=== PATIENT | female | born 1965 | race Caucasian/White ===

== ENCOUNTER → 2018-05-22 15:59 | Outpatient (CLI) | payer BC, SELFPAY ==
--- NOTE | 2018-05-22 16:03 | MR_ITS ---
MR knee RT wo con HISTORY: With an injury of the right knee with medial pain when bending or extending ITS.REASON: ACUTE PAIN OF RIGHT KNEE ORDERING PHYSICIAN: Abel Cleary MD PATIENT AGE: 52 years Comparison: None TECHNIQUE: Standard multiplanar multiecho sequences are performed without contrast. FINDINGS: The cruciate ligaments appear intact. The collateral ligaments also appear intact. The patellar tendon and quadriceps tendon are unremarkable. No meniscal tear. There are mild tricompartmental osteoarthritic changes with a medium sized knee joint effusion mainly in the suprapatellar region. There is some minimal thinning of the patellar cartilage with osteoarthritic change of the patellofemoral joint. Bone marrow edema is present within the medial femoral condyle hypointense on T1 and hyperintense on T2 and may be related to an area of developing avascular necrosis. There is a small focal area of decreased T1 signal in the subcortical region of this area suspicious for an area of osteonecrosis. The medial meniscus is extruded medially with decrease in the medial joint space. IMPRESSION: 1. No evidence of internal derangement. 2. Tricompartmental osteoarthritis with knee joint effusion. 3. Mild chondromalacia patella. 4. 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
== END ==
PROVIDERS: PCP Family Medicine; Visit Provider Family Medicine
DX: M25.561 Pain in right knee (principal); S83.206A Unspecified tear of unspecified meniscus, current injury, right knee, initial encounter
CPT/HCPCS: 73721

== ENCOUNTER → 2018-09-04 13:54 | Outpatient (CLI) | payer BC, SELFPAY ==
--- NOTE | 2018-09-04 13:57 | XR_ITS ---
XR knee RT 4V HISTORY: Knee pain ITS.REASON: 4 views weightbearing ORDERING PHYSICIAN: Ngozi Garcia MD PATIENT AGE: 52 years COMPARISON: None FINDINGS: No fracture or dislocation. No lytic or blastic change. Normal mineralization. There are mild osteoarthritic changes of the medial compartment and patellofemoral joint. Osteophyte is noted along the posterior patella medially with small osteophytes of the tibial spines and femoral condyles centrally. There is a small osteophyte along the central aspect of the lateral femoral condyle. Small suprapatellar effusion is suspected. IMPRESSION: Mild osteoarthritic change of all 3 compartments with small knee joint effusion
== END ==
PROVIDERS: PCP Family Medicine; Visit Provider Orthopaedic Surgery
DX: M25.561 Pain in right knee (principal)
CPT/HCPCS: 73564

== ENCOUNTER → 2020-06-10 07:45 | Outpatient (CLI) | payer BC, SELFPAY | PROVIDERS: PCP Family Medicine; Visit Provider Family Medicine | DX: R07.9 Chest pain, unspecified (principal); I34.1 Nonrheumatic mitral (valve) prolapse | CPT/HCPCS: 93306 ==

== ENCOUNTER → 2020-06-17 12:41 | Outpatient (CLI) | payer BC, SELFPAY ==
[2020-06-17 17:37] LABS: Basophils % 0.3 % (0.1-2.0); Eosinophils # 0.2 K/mm3 (0.0-0.4); Eosinophils % 2.4 % (0.1-12.0); Hematocrit 45.5 % (37.0-47.0); Hemoglobin 14.5 g/dL (12.2-16.2); Lymphocytes # 2.2 K/mm3 (0.7-4.5); Lymphocytes % 22.3 % (10-50); Mean Corpuscular Hemoglobin 28.8 pg (27.0-31.2); Mean Corpuscular Volume 90.1 fl (81-99); Mean Platelet Volume 8.9 fl (7.4-10.4); Monocytes # 0.5 K/mm3 (0.1-1.0); Monocytes % 5.5 % (1.7-9.3); Neutrophils # 6.7 K/mm3 (1.8-7.8); Neutrophils % 69.4 % (37.0-80.0); Platelet Count 256 K/mm3 (142-424); Red Blood Count 5.05 M/mm3 (4.20-5.40); Red Cell Distribution Width 14.8 % (11.5-17.5); White Blood Count 9.7 K/mm3 (4.8-10.8)
== END ==
PROVIDERS: PCP Physician Assistant; Visit Provider Physician Assistant
DX: Z20.828 Contact with and (suspected) exposure to other viral communicable diseases (principal); U07.1 COVID-19
CPT/HCPCS: 36415; 85025; U0003

== ENCOUNTER → 2020-06-20 14:27 | Outpatient (CLI) | payer BC, SELFPAY ==
[2020-06-22 14:02] LABS: Covid-19 Nasal PCR Sendout Lex NOT DETECTED
== END ==
PROVIDERS: PCP Family Medicine; Visit Provider Physician Assistant
DX: Z03.818 Encounter for observation for suspected exposure to other biological agents ruled out (principal)
CPT/HCPCS: U0004

== ENCOUNTER → 2021-05-04 19:30 | Outpatient (CLI) | payer BC, SELFPAY | PROVIDERS: Visit Provider Nurse Practitioner Family | DX: Z20.822 Contact with and (suspected) exposure to COVID-19 (principal) | CPT/HCPCS: C9803; U0003; U0005 ==

== ENCOUNTER → 2021-07-28 14:27 | Outpatient (CLI) | payer BC, SELFPAY ==
[2021-07-28 14:42] LABS: Adenovirus,PCR Not Detected (NotDetected); Bordetella Pertussis Not Detected (NotDetected); Chlamydophila Pneumoniae, PCR Not Detected (NotDetected); Coronavirus 19, PCR Not Detected (NotDetected); Coronavirus 229E Not Detected (NotDetected); Coronavirus NL63 Not Detected (NotDetected); Coronavirus OC43 Not Detected (NotDetected); Coronovirus HKU1,PCR Not Detected (NotDetected); Human Metapneumovirus Not Detected (NotDetected); Influenza A, PCR Not Detected (NotDetected); Influenza AH1, 2009 Not Detected (NotDetected); Influenza AH1, PCR Not Detected (NotDetected); Influenza AH3,PCR Not Detected (NotDetected); Influenza B, PCR Not Detected (NotDetected); Mycoplasma Pneumoniae, PCR Not Detected (NotDetected); Parainfluenza 1, PCR Not Detected (NotDetected); Parainfluenza 2, PCR Not Detected (NotDetected); Parainfluenza 3, PCR Not Detected (NotDetected); Parainfluenza 4, PCR Not Detected (NotDetected); Respiratory Syncytial Virus Not Detected (NotDetected); Rhinovirus/Enterovirus Not Detected (NotDetected)
[2021-07-28 14:48] LABS: Basophils # 0.1 K/mm3 (0-0.2); Basophils % 1.2 % (0.1-2.0); Eosinophils # 0.2 K/mm3 (0.0-0.4); Eosinophils % 2.1 % (0.1-12.0); Hematocrit 43.4 % (37.0-47.0); Hemoglobin 13.8 g/dL (12.2-16.2); Lymphocytes # 1.8 K/mm3 (0.7-4.5); Lymphocytes % 19.5 % (10-50); Mean Corpuscular HGB Conc 31.9 g/dL (31.8-35.4); Mean Corpuscular Volume 94.2 fl (81-99); Mean Platelet Volume 8.5 fl (7.4-10.4); Monocytes # 0.5 K/mm3 (0.1-1.0); Monocytes % 5.6 % (1.7-9.3); Neutrophils # 6.5 K/mm3 (1.8-7.8); Neutrophils % 71.6 % (37.0-80.0); Platelet Count 268 K/mm3 (142-424); Red Blood Count 4.61 M/mm3 (4.20-5.40); Red Cell Distribution Width 13.1 % (11.5-17.5); White Blood Count 9.1 K/mm3 (4.8-10.8)
[2021-07-28 15:30] LABS: Strep Scrn Group A (Rapid) Negative (Negative)
== END ==
PROVIDERS: PCP Family Medicine; Visit Provider Physician Assistant
DX: Z20.822 Contact with and (suspected) exposure to COVID-19 (principal); J02.9 Acute pharyngitis, unspecified
CPT/HCPCS: 36415; 85025; 87430; 87581; 87632; 87798; C9803; U0003; U0005

== ENCOUNTER → 2021-09-05 12:34 | Outpatient (CLI) | payer BC, SELFPAY ==
[2021-09-05 12:56] LABS: Microscopic, Urine URINE MICROSCOPIC (MICROSCOPIC)
[2021-09-05 13:03] LABS: Basophils % 0.4 % (0.1-2.0); Eosinophils # 0.1 K/mm3 (0.0-0.4); Eosinophils % 1.7 % (0.1-12.0); Hematocrit 44.9 % (37.0-47.0); Hemoglobin 14.5 g/dL (12.2-16.2); Lymphocytes # 1.2 K/mm3 (0.7-4.5); Lymphocytes % 14.2 % (10-50); Mean Corpuscular HGB Conc 32.3 g/dL (31.8-35.4); Mean Corpuscular Hemoglobin 30.2 pg (27.0-31.2); Mean Corpuscular Volume 93.6 fl (81-99); Mean Platelet Volume 8.7 fl (7.4-10.4); Monocytes # 0.5 K/mm3 (0.1-1.0); Monocytes % 5.8 % (1.7-9.3); Neutrophils # 6.4 K/mm3 (1.8-7.8); Neutrophils % 77.9 % (37.0-80.0); Platelet Count 276 K/mm3 (142-424); Red Cell Distribution Width 13.3 % (11.5-17.5); White Blood Count 8.2 K/mm3 (4.8-10.8)
[2021-09-05 13:22] LABS: Appearance,Urine CLOUDY (Clear); Bilirubin,Urine Negative (Negative); Blood, Urine Negative (Negative); Color,Urine YELLOW (Yellow); Glucose,Urine (UA) Negative (Negative); Ketones,Urine Negative (Negative); Leukocyte Esterase,Urine 1+ (Negative); Nitrate,Urine Negative (Negative); Protein,Urine Negative (Negative)
[2021-09-05 13:43] LABS: Amorphous Sediment,Urine 2+ /lpf; WBC,Urine Occasional #/hpf (0-3)
[2021-09-05 13:44] LABS: Bacteria,Urine 2+ /lpf
== END ==
PROVIDERS: PCP Family Medicine; Visit Provider Family Medicine
DX: U07.1 COVID-19 (principal)
CPT/HCPCS: 36415; 81001; 85025; 87086; C9803; U0003; U0005

== ENCOUNTER 2021-09-30 12:42 | Emergency (ER) | payer BC, SELFPAY ==
[2021-09-30 13:00] VITALS: BP 129/63; PULSE 66; RESP 19; TEMP 37.1; O2SAT 98; BMI 36.9
[2021-09-30 13:30] LABS: UTC Strep Screen (Rapid) Negative (Negative)
--- NOTE | 2021-09-30 13:44 | HMH.EDUTC ---
[facility] [place] Clinical Impression: Otitis media Qualifiers: Otitis media type: unspecified Laterality: right Qualified Code(s): H66.91 - Otitis media, unspecified, right ear Disposition: Home, Self-Care Condition on Discharge: Good Instructions: Middle Ear Infection, Amoxicillin and Clavulanic Acid Additional Instructions: *Monitor Temp, Over the counter Motrin or Tylenol as directed/as needed Tylenol every 4 hours and Motrin every 6 hours (as long as your family doctor has told you that you can take it) for fever or pain. and straight to ER if unable to lower temp less than 101.0 after medication given *Warm salt water gargles may help to soothe the throat *Throat Lozenges *Warm fluids like tea with honey may help to soothe the throat *Sleep elevated *Humidifier/Vaporizer Take medication as prescribed Follow up IMMEDIATELY for new or worsening symptoms or no Noticeable improvement over the next 48-72 hours. 911 for difficulty breathing or swallowing Prescriptions: Amoxicillin/Potassium Clav [Amox-Clav 875-125 mg Tablet] 1 tab PO BID #20 tab Transmission Status: Pending to [id number] Fluticasone Propionate [Flonase 50mcg nasal spray 16gm] 1 spr NS DAILY #1 each Transmission Status: Pending to [id number] Referrals: Abel Cleary MD [Primary Care Provider] - As needed Time of Disposition: 13:58 Medical Decision Making - Nik Inquiry Pt receiving controlled substance: No Nik was queried for this patient: No Vital Signs: 09/30/21 13:00 Temperature 98.8 F Temperature Source Oral Pulse Rate [Right Brachial] 66 Respiratory Rate 19 Blood Pressure [Right Arm] 129/63 Blood Pressure Mean [Right Arm] 85 Blood Pressure Source [Right Arm] Automatic Cuff Blood Pressure Position [Right Arm] Sitting 02 Sat by Pulse Oximetry 98 Oxygen Delivery Method Room Air - Lab Data Lab results reviewed: Yes: I reviewed the patient's lab results. Lab Results 09/30/21 13:17: Strep Scn Rapid Clinic Negative Orders (Tests/Meds): ORDERS Category Date Time Status Strep Screen Confirmation Stat Micro 09/30/21 13:17 Received [facility] [place] HPI - General Stated complaint: sore throat, right ear ache Time Seen by Provider: 09/30/21 13:44 Mode of Arrival: Ambulatory Source of Information: Patient Limitations: No Limitations Description of Symptoms (Recalled from Triage Doc. by RN): PATIENT C/O SORE THROAT, RIGHT EAR PAIN, SINUS PRESSURE AND HEADACHE X 2 DAYS HEENT Symptoms (Recalled from RN notes): Yes Resp Symptoms (Recalled from RN notes): No Skin Symptoms (Recalled from RN notes): No MS Symptoms (Recalled from RN notes): No Functional Status (Recalled from RN notes): WNL - History of Present Illness Provider Complaint: Patient states that she has been having sore throat, pain/pressure in her right ear and sinsus States that today it hurt when she would swallow and shoot pain through her ear so she came in to get checked out - Related Data Home Medications Medication Instructions Recorded Confirmed cholecalciferol (vitamin D3) 125 5,000 unit PO QDAY 07/28/17 06/15/21 mcg (5,000 unit) capsule duloxetine 60 mg capsule,delayed 60 mg PO QDAY 07/28/17 06/15/21 release gabapentin 300 mg capsule 300 mg PO TID 07/28/17 06/15/21 metoprolol succinate 100 mg 100 mg PO BID 07/28/17 06/15/21 tablet,extended release 24 hr montelukast 10 mg tablet 10 mg PO QHS 07/28/17 06/15/21 topiramate 100 mg capsule,extended 100 mg PO QDAY 07/28/17 06/15/21 release 24 hr secukinumab 150 mg/mL subcutaneous SQ 84 Days #6 ml 07/09/18 06/15/21 pen injector linaclotide 72 mcg capsule 72 mcg PO DAILY 09/04/18 06/15/21 dexlansoprazole 60 mg 60 mg PO DAILY 06/18/19 06/15/21 capsule,biphase delayed release quetiapine 50 mg tablet,extended 50 mg PO QPM 06/18/19 06/15/21 release 24 hr ranitidine HCl 150 mg capsule 150 mg PO DAILY 06/18/19 06/15/21 fluocinonide 0.05 % topical TOPICAL 08/04/19
[2021-09-30 14:00] VITALS: BP 129/63; PULSE 66; RESP 19; TEMP 37.1; O2SAT 98
== END 2021-09-30 14:04 | disposition home or self-care (01) ==
PROVIDERS: Emergency Provider Nurse Practitioner; PCP Family Medicine
DX: H66.91 Otitis media, unspecified, right ear (principal); M79.7 Fibromyalgia; I10 Essential (primary) hypertension
CPT/HCPCS: 87880; 99212; G0463

== ENCOUNTER → 2022-04-25 11:24 | Outpatient (CLI) | payer BC, SELFPAY ==
[2022-04-25 11:55] LABS: Basophils % 0.4 % (0.1-2.0); Eosinophils # 0.1 K/mm3 (0.0-0.4); Eosinophils % 1.7 % (0.1-12.0); Hematocrit 38.9 % (37.0-47.0); Hemoglobin 11.8 g/dL (12.2-16.2); Lymphocytes # 1.4 K/mm3 (0.7-4.5); Lymphocytes % 19.9 % (10-50); Mean Corpuscular HGB Conc 30.4 g/dL (31.8-35.4); Mean Corpuscular Hemoglobin 28.8 pg (27.0-31.2); Mean Corpuscular Volume 94.8 fl (81-99); Mean Platelet Volume 7.7 fl (7.4-10.4); Monocytes # 0.4 K/mm3 (0.1-1.0); Monocytes % 4.9 % (1.7-9.3); Neutrophils # 5.3 K/mm3 (1.8-7.8); Platelet Count 260 K/mm3 (142-424); Red Cell Distribution Width 13.4 % (11.5-17.5); White Blood Count 7.2 K/mm3 (4.8-10.8)
[2022-04-25 12:01] LABS: Strep Scrn Group A (Rapid) Negative (Negative)
== END ==
PROVIDERS: PCP Family Medicine; Visit Provider Physician Assistant
DX: Z20.822 Contact with and (suspected) exposure to COVID-19 (principal)
CPT/HCPCS: 36415; 85025; 87430; C9803; U0003; U0005

== ENCOUNTER → 2022-05-07 16:39 | Outpatient (CLI) | payer BC, SELFPAY ==
[2022-05-07 18:06] LABS: Microscopic, Urine URINE MICROSCOPIC (MICROSCOPIC)
[2022-05-07 18:15] LABS: Appearance,Urine CLEAR (Clear); Bilirubin,Urine Negative (Negative); Blood, Urine TRACE-L (Negative); Color,Urine DK YELLOW (Yellow); Glucose,Urine (UA) Negative (Negative); Ketones,Urine Negative (Negative); Leukocyte Esterase,Urine 2+ (Negative); Nitrate,Urine POSITIVE (Negative); Protein,Urine Negative (Negative); Urobilinogen,Urine 0.2 EU/dl (0.2)
[2022-05-07 18:18] LABS: Basophils # 0.1 K/mm3 (0-0.2); Basophils % 0.7 % (0.1-2.0); Eosinophils # 0.2 K/mm3 (0.0-0.4); Eosinophils % 2.8 % (0.1-12.0); Hematocrit 38.8 % (37.0-47.0); Hemoglobin 12.5 g/dL (12.2-16.2); Lymphocytes # 1.7 K/mm3 (0.7-4.5); Lymphocytes % 20.5 % (10-50); Mean Corpuscular HGB Conc 32.2 g/dL (31.8-35.4); Mean Corpuscular Hemoglobin 29.9 pg (27.0-31.2); Mean Corpuscular Volume 92.9 fl (81-99); Mean Platelet Volume 8.2 fl (7.4-10.4); Monocytes # 0.4 K/mm3 (0.1-1.0); Neutrophils # 5.7 K/mm3 (1.8-7.8); Platelet Count 236 K/mm3 (142-424); Red Blood Count 4.18 M/mm3 (4.20-5.40); Red Cell Distribution Width 13.9 % (11.5-17.5); White Blood Count 8.1 K/mm3 (4.8-10.8)
[2022-05-07 19:03] LABS: Bacteria,Urine 1+ /lpf
[2022-05-09 08:39] LABS: Antistreptolysin O Ab 182.1 IU/mL (0.0-200.0)
== END ==
PROVIDERS: PCP Family Medicine; Visit Provider Family Medicine
DX: R30.0 Dysuria (principal); N39.0 Urinary tract infection, site not specified
CPT/HCPCS: 36415; 81001; 85025; 86060; 87086

== ENCOUNTER 2022-11-15 16:30 | Emergency (ER) | payer BC, SELFPAY ==
[2022-11-15 16:41] VITALS: BP 141/86; PULSE 87; RESP 18; TEMP 36.8; O2SAT 98; BMI 46.9
--- NOTE | 2022-11-15 16:52 | EXP.UTC ---
Discharge Plan Disposition Patient Disposition: Home, Self-Care Condition: Good Prescriptions Prescriptions: New cefdinir 300 mg capsule 300 mg PO BID Qty: 20 0RF fluticasone propionate [Flonase Allergy Relief] 50 mcg/actuation spray,suspension 1 - 2 spray intranasal DAILY Qty: 16 0RF Rx Instructions: administer into each nostril daily No Action Linzess 72 mcg capsule 72 mcg PO DAILY quetiapine 50 mg tablet extended release 24 hr 50 mg PO QPM Dexilant 60 mg capsule,biphase delayed releas 60 mg PO DAILY ranitidine HCl 150 mg capsule 150 mg PO DAILY gabapentin 300 mg capsule 300 mg PO TID duloxetine 60 mg capsule,delayed release(DR/EC) 60 mg PO QDAY topiramate 100 mg capsule,extended release 24hr 100 mg PO QDAY metoprolol succinate 100 mg tablet extended release 24 hr 100 mg PO BID montelukast 10 mg tablet 10 mg PO QHS cholecalciferol (vitamin D3) 5,000 unit capsule 5,000 unit PO QDAY secukinumab 150 mg/mL pen injector SQ 84 Days Qty: 6 fluocinonide 0.05 % solution TOPICAL Label Comments: APPLY SOLUTION TOPICALLY TO AFFECTED AREA TWICE DAILY fluticasone propionate 120 SPR/BOT bottle 1 spr NS DAILY Qty: 1 0RF Rx Instructions: one spray in each nostril daily amoxicillin-pot clavulanate 1 EACH tablet 1 tab PO BID Qty: 20 0RF Referrals Follow up/Referrals: Abel Cleary MD [Primary Care Provider] - See instructions Activity Restrictions/Add. Instructions Additional Instructions/Restrictions: *Monitor Temp, Over the counter Motrin or Tylenol as directed/as needed Tylenol every 4 hours and Motrin every 6 hours (as long as your family doctor has told you that you can take it) for fever or pain. and straight to ER if unable to lower temp less than 101.0 after medication given *Warm salt water gargles may help to soothe the throat *Throat Lozenges? *Warm fluids like tea with honey may help to soothe the throat? *Sleep elevated *Humidifier/Vaporizer *If you did not take Penicillin shot or was unable to, start taking antibiotic immediately and make sure that you take it for the FULL length of time although you should start to feel better in 24-48 hours *change toothbrush and toothpaste 24-48 hours after starting to take antibiotics so you do not reinfect yourself Monitor Temp. Tylenol and/or Ibuprofen as needed. ER if fever is no less than 101 despite alternating Tylenol and Ibuprofen * Encourage fluids, water, Gatorade, powerade, pedialyte if infant/toddler/or child *Cold fluids, popsicles and ice cream may feel good on his throat Follow up IMMEDIATELY for new or worsening symptoms or no Noticeable improvement over the next 48-72 hours. 911 for difficulty breathing or swallowing Clinical Impressions Clinical Impression: Strep throat Instructions Patient Instructions: Strep Throat, DI for Strep Throat Discharge ED Provider: Lisy Spears [facility] [place] HPI General Stated complaint: sore throat,Fullness right ear,[place] Mode of Arrival: Ambulatory Source of Information: Patient Limitations: No Limitations Time Seen by Provider: 11/15/22 16:52 Description of Symptoms (Recalled from Triage Doc. by RN): pt c/o a sore throat, R ear pressure, low grade fever, and chills since yesterday. HEENT Symptoms (Recalled from RN notes): Yes Resp Symptoms (Recalled from RN notes): No Skin Symptoms (Recalled from RN notes): No MS Symptoms (Recalled from RN notes): No Functional Status (Recalled from RN notes): wnl History of Present Illness Provider Complaint: Patient states that she has been having sinus congestion and pressure but since yesterday she has been having sinus pain and pressure, sore throat, pain and pressure in right ear and low grade fever States that today her throat felt like she was swallowing razor blades so she came in to get checked Related Data Home Medications M
[2022-11-15 17:18] LABS: UTC Strep Screen (Rapid) Positive (Negative)
[2022-11-15 17:41] VITALS: BP 141/86; PULSE 87; RESP 18; TEMP 36.8
== END 2022-11-15 17:42 | disposition home or self-care (01) ==
PROVIDERS: Emergency Provider Nurse Practitioner; PCP Family Medicine
DX: J02.0 Streptococcal pharyngitis (principal); R50.9 Fever, unspecified; H92.01 Otalgia, right ear
CPT/HCPCS: 87880; 99212; 99214; G0463

== ENCOUNTER → 2022-12-06 23:32 | Outpatient (CLI) | payer BC, SELFPAY | PROVIDERS: PCP Student in an Organized Health Care Education/Training Program; Visit Provider Student in an Organized Health Care Education/Training Program | DX: R30.9 Painful micturition, unspecified (principal) | CPT/HCPCS: 87086 ==

== ENCOUNTER 2023-01-19 20:12 | Emergency (ER) | payer BC, SELFPAY ==
[2023-01-19 20:13] VITALS: BP 121/75; PULSE 83; RESP 18; TEMP 36.9; O2SAT 96; BMI 36.9
[2023-01-19 20:30] VITALS: BP 118/62; PULSE 82; O2SAT 96
[2023-01-19 20:41] LABS: Coronavirus 19, PCR Not Detected (NotDetected); Influenza A, PCR Not Detected (NotDetected); Influenza B, PCR Not Detected (NotDetected)
[2023-01-19 20:53] LABS: Strep Scrn Group A (Rapid) Positive (Negative)
[2023-01-19 21:00] VITALS: BP 122/59; PULSE 80; O2SAT 96
--- NOTE | 2023-01-19 21:13 | HMH.EDURI ---
Discharge Plan Disposition Patient Disposition: Home, Self-Care Chief Complaint: Upper Respiratory Infection Prescriptions Prescriptions: No Action Linzess 72 mcg capsule 72 mcg PO DAILY quetiapine 50 mg tablet extended release 24 hr 50 mg PO QPM gabapentin 300 mg capsule 300 mg PO TID duloxetine 60 mg capsule,delayed release(DR/EC) 60 mg PO QDAY topiramate 100 mg capsule,extended release 24hr 100 mg PO QDAY metoprolol succinate 100 mg tablet extended release 24 hr 100 mg PO BID montelukast 10 mg tablet 10 mg PO QHS cholecalciferol (vitamin D3) 5,000 unit capsule 5,000 unit PO QDAY secukinumab 150 mg/mL pen injector SQ 84 Days Qty: 6 hydroxychloroquine 200 mg tablet 200 mg PO pantoprazole 40 mg tablet,delayed release (DR/EC) 40 mg PO DAILY cyclobenzaprine 10 mg tablet 10 mg PO TID tramadol 50 mg tablet 50 mg PO Q8H PRN famotidine 40 mg tablet 40 mg PO DAILY hydroxyzine HCl 25 mg tablet 25 mg PO BID PRN phenazopyridine 99.5 mg tablet 99.5 mg PO TID PRN nitrofurantoin monohyd/m-cryst 100 mg capsule 100 mg PO Q12H 7 Days Qty: 14 0RF Rx Instructions: must administer with a meal/food triamcinolone acetonide 0.1 % cream 1 applic topical DAILY Qty: 15 0RF fluticasone propionate [Flonase Allergy Relief] 50 mcg/actuation spray,suspension 1 - 2 spray intranasal DAILY Qty: 16 0RF Rx Instructions: administer into each nostril daily Referrals Follow up/Referrals: Abel Cleary MD [Primary Care Provider] - See instructions Clinical Impressions Clinical Impression: Strep throat Instructions Patient Instructions: Strep Throat Discharge ED Provider: Dorian (ED)Asael URI/Sore Throat HPI General Chief Complaint: Upper Respiratory Infection Stated Complaint: sore throat,ear pain, cough Time Seen by Provider: 01/19/23 21:00 Mode of Arrival: Ambulatory Source of Information: Patient and Medical Record Limitations: No Limitations Description of Symptoms (Recalled from ER Triage Doc. by RN): 57F presents from home with 1 day of sore throat and flu-like symptoms. Patient reports having strep throat 1 month ago. Denies fever, chills, SOA. History of Present Illness HPI Narrative: sore throat x 1 day and no sig cough and no rash MD Complaint: sore throat Onset (ago): day(s) Duration: constant Severity: moderate Able to tolerate fluids by mouth: Yes Associated symptoms: denies other symptoms Treatments prior to arrival: acetaminophen and ibuprofen Related Data Home Medications Medication Instructions Recorded Confirmed cholecalciferol (vitamin D3) 125 5,000 unit PO QDAY 07/28/17 12/06/22 mcg (5,000 unit) capsule duloxetine 60 mg capsule,delayed 60 mg PO QDAY 07/28/17 12/06/22 release gabapentin 300 mg capsule 300 mg PO TID 07/28/17 12/06/22 metoprolol succinate 100 mg 100 mg PO BID 07/28/17 12/06/22 tablet,extended release 24 hr montelukast 10 mg tablet 10 mg PO QHS 07/28/17 12/06/22 topiramate 100 mg capsule,extended 100 mg PO QDAY 07/28/17 12/06/22 release 24 hr secukinumab 150 mg/mL subcutaneous SQ 84 days #6 mL 07/09/18 12/06/22 pen injector linaclotide 72 mcg capsule 72 mcg PO DAILY 09/04/18 12/06/22 (Linzess) quetiapine 50 mg tablet,extended 50 mg PO QPM 06/18/19 12/06/22 release 24 hr cyclobenzaprine 10 mg tablet 10 mg PO TID 12/06/22 12/06/22 famotidine 40 mg tablet 40 mg PO DAILY 12/06/22 12/06/22 hydroxychloroquine 200 mg tablet 200 mg PO 12/06/22 12/06/22 hydroxyzine HCl 25 mg tablet 25 mg PO BID PRN 12/06/22 12/06/22 pantoprazole 40 mg tablet,delayed 40 mg PO DAILY 12/06/22 12/06/22 release phenazopyridine 99.5 mg tablet 99.5 mg PO TID PRN 12/06/22 12/06/22 tramadol 50 mg tablet 50 mg PO Q8H PRN 12/06/22 12/06/22 Previous Rx's Medication Instructions Recorded fluticasone propionate 50 1 - 2 spray intranasal DAILY #16 11/15/22 mcg/
[2023-01-19 21:33] VITALS: BP 122/59; PULSE 71; RESP 18; TEMP 36.8; O2SAT 98
== END 2023-01-19 21:33 | disposition home or self-care (01) ==
PROVIDERS: Emergency Provider Emergency Medicine; PCP Family Medicine
DX: J02.0 Streptococcal pharyngitis (principal)
CPT/HCPCS: 87430; 87636; 96372; 99283; 99284; J0561

== ENCOUNTER → 2023-03-28 23:43 | Outpatient (CLI) | payer BC, SELFPAY | PROVIDERS: PCP Family Medicine; Visit Provider Student in an Organized Health Care Education/Training Program | DX: N39.0 Urinary tract infection, site not specified (principal) | CPT/HCPCS: 87086 ==

== ENCOUNTER 2023-07-13 14:42 | Emergency (ER) | payer BC, SELFPAY ==
[2023-07-13 15:10] VITALS: BP 144/67; PULSE 72; RESP 20; TEMP 36.8; O2SAT 98; BMI 36.9
--- NOTE | 2023-07-13 15:10 | ED_ITS ---
Discharge Plan Disposition Patient Disposition: Home, Self-Care Condition: Good Prescriptions Prescriptions: New promethazine-DM 6.25-15 mg/5 mL Syrup 5 ml PO Q6H PRN (Reason: Cough) Qty: 240 0RF methylprednisolone 4 mg Tablets,Dose Pack 4 mg PO DIRECTED 6 Days Qty: 21 0RF Rx Instructions: Take 1 pack as directed for 6 days amoxicillin-pot clavulanate 875-125 mg Tablet 1 tab PO Q12H Qty: 20 0RF guaifenesin [Mucinex] 600 mg tablet extended release 12hr 600 - 1,200 mg PO BIDP PRN (Reason: Congestion) Qty: 30 0RF No Action Linzess 72 mcg capsule 72 mcg PO DAILY quetiapine 50 mg tablet extended release 24 hr 50 mg PO QPM gabapentin 300 mg capsule 300 mg PO TID duloxetine 60 mg capsule,delayed release(DR/EC) 60 mg PO QDAY topiramate 100 mg capsule,extended release 24hr 100 mg PO QDAY metoprolol succinate 100 mg tablet extended release 24 hr 100 mg PO BID montelukast 10 mg tablet 10 mg PO QHS cholecalciferol (vitamin D3) 5,000 unit capsule 5,000 unit PO QDAY secukinumab 150 mg/mL pen injector SQ 84 Days Qty: 6 hydroxychloroquine 200 mg tablet 200 mg PO pantoprazole 40 mg tablet,delayed release (DR/EC) 40 mg PO DAILY cyclobenzaprine 10 mg tablet 10 mg PO TID tramadol 50 mg tablet 50 mg PO Q8H PRN famotidine 40 mg tablet 40 mg PO DAILY hydroxyzine HCl 25 mg tablet 25 mg PO BID PRN triamcinolone acetonide 0.1 % cream 1 applic topical DAILY Qty: 15 0RF amoxicillin-pot clavulanate 875-125 mg tablet 1 tab PO BID 10 Days Qty: 20 0RF benzonatate 100 mg capsule 100 mg PO BID PRN (Reason: cough) Qty: 20 0RF fluticasone propionate [Flonase Allergy Relief] 50 mcg/actuation spray,suspension 1 - 2 spray intranasal DAILY Qty: 16 0RF Rx Instructions: administer into each nostril daily Referrals Follow up/Referrals: Abel Cleary MD [Primary Care Provider] - See instructions Activity Restrictions/Add. Instructions Additional Instructions/Restrictions: Drink plenty of fluids. Take tylenol or ibuprofen for pain or fever. Take the medications as directed. Follow up with your regular doctor. GO TO THE ER FOR ANY WORSENING SYMPTOMS Clinical Impressions Clinical Impression: Sinusitis, Otitis media Instructions Patient Instructions: Sinusitis, DI for Sinusitis Discharge ED Provider: Miguel Angel Mixon [facility] General Stated complaint: right ear pain, cough congestion Time Seen by Provider: 07/13/23 15:10 History of Present Illness Provider Complaint: She states that for the past 1 week she has had sinus congestion and ear pain. Related Data Home Medications Medication Instructions Recorded Confirmed cholecalciferol (vitamin D3) 125 5,000 unit PO QDAY 07/28/17 05/24/23 mcg (5,000 unit) capsule duloxetine 60 mg capsule,delayed 60 mg PO QDAY 07/28/17 05/24/23 release gabapentin 300 mg capsule 300 mg PO TID 07/28/17 05/24/23 metoprolol succinate 100 mg 100 mg PO BID 07/28/17 05/24/23 tablet,extended release 24 hr montelukast 10 mg tablet 10 mg PO QHS 07/28/17 05/24/23 topiramate 100 mg capsule,extended 100 mg PO QDAY 07/28/17 05/24/23 release 24 hr secukinumab 150 mg/mL subcutaneous SQ 84 days #6 mL 07/09/18 05/24/23 pen injector linaclotide 72 mcg capsule 72 mcg PO DAILY 09/04/18 05/24/23 (Linzess) quetiapine 50 mg tablet,extended 50 mg PO QPM 06/18/19 05/24/23 release 24 hr cyclobenzaprine 10 mg tablet 10 mg PO TID 12/06/22 05/24/23 famotidine 40 mg tablet 40 mg PO DAILY 12/06/22 05/24/23 hydroxychloroquine 200 mg tablet 200 mg PO 12/06/22 05/24/23 hydroxyzine HCl 25 mg tablet 25 mg PO BID PRN 12/06/22 05/24/23 pantoprazole 40 mg tablet,delayed 40 mg PO DAILY 12/06/22 05/24/23 release tramadol 50 mg tablet 50 mg PO Q8H PRN 12/06/22 05/24/23 Previous Rx's Medication Instructions Recorded triamcinolone acetonide 0.1 % 1 applic topical DAILY #15 grams 12/06/22 topical cream amoxicillin 875 mg-potassium 1 tab PO BID 10 days #20 tabs 05/24/23 clavulanate 125 mg tablet benzonatate 100 mg capsule 100 mg PO BID PRN cough #20 caps 05/24/23 fluticasone propionate 50 1 - 2 spray intranasal DAILY #16 05/24/23 mcg/actuation nasal grams spray,suspension (Flonase Allergy Relief) amoxicillin 875 mg-potassium 1 tab PO Q12H #20 tabs 07/13/23 clavulanate 125 mg tablet guaifenesin 600 mg tablet, 600 - 1,200 mg PO BIDP PRN 07/13/23 extended release 12 hr (Mucinex) Congestion #30 tabs methylprednisolone 4 mg tablets in 4 mg PO DIRECTED 6 days #21 tabs 07/13/23 a dose pack promethazine-DM 6.25 mg-15 mg/5 mL 5 ml PO Q6H PRN Cough #240 mL 07/13/23 oral syrup Allergies Allergy/AdvReac Type Severity Reaction Status Date / Time hydroxychloroquine Allergy Verified 07/13/23 15:22 codeine AdvReac Mild Verified 05/24/23 09:49 [facility] Disclaimer: The information contained in this section may have been updated after the patient was seen, as this information can be updated by other users. Medical History Fibromyalgia Psoriatic arthritis Surgical History No significant past surgical history Family History Family/Other No significant family history Social History Smoking Status: Never smoker alcohol intake: never substance use type: denies use current occupational status: other Travel in the last 8 weeks: None household members: family housing: house ROS Obtained: Yes All systems reviewed & no additional complaints except as d ocumented Constitutional Constitutional: Reports poor appetite Eyes Eyes: Reports system reviewed and no additional complaints, except as documented ENT Ears, Nose, Mouth, and Throat: Reports as per HPI Cardiovascular Cardiovascular: Reports system reviewed and no additional complaints, except as documented and Denies chest pain Respiratory Respiratory: Denies shortness of breath, Denies chest congestion, Reports cough, Denies stridor and Denies wheezing Gastrointestinal Gastrointestingal: Reports system reviewed and no additional complaints, except as documented; Denies abdominal pain, diarrhea or vomiting Musculoskeletal Musculoskeletal: Reports system reviewed and no additional complaints, except as documented and Denies arthralgias Integumentary/Breasts Skin/Breast: Reports system reviewed and no additional complaints, except as documented and Denies rash Neurologic Neurologic: Denies paresthesias Allergic/Immunologic Allergic/Immunologic: Denies wheezing Physical Exam General General appearance: alert and in no apparent distress Head Head exam: atraumatic, normocephalic and normal inspection Eye Eye exam: Present normal appearance; Absent PERRL or EOMI ENT ENT exam: Present mucous membranes moist and normal external ear exam Expanded ENT Exam TM/Canal exam: Bilateral TM: erythema, bulging and effusion Nose exam: Absent sinus tenderness Nasal speculum exam: Bilateral: normal Mouth exam: Present normal external inspection and other; Absent drooling Teeth exam: Present normal inspection Throat exam: Present tonsillar erythema and tonsillomegaly Neck Neck exam: Present normal inspection, full ROM and trachea midline; Absent tenderness, meningismus or lymphadenopathy Chest Chest inspection: Present normal inspection and symmetric chest wall rise; Absent tenderness Respiratory Respiratory exam: Present normal lung sounds bilaterally; Absent respiratory distress, wheezes or stridor Cardiovascular Cardiovascular exam: Present regular rate, normal rhythm and normal heart sounds; Absent tachycardia or irregular rhythm Abdominal Exam Abdominal exam: Present soft and normal bowel sounds; Absent distention, tenderness, guarding, rebound or rigidity Extremities Exam Extremities exam: Present normal inspection and normal capillary refill; Absent tenderness, joint swelling or calf tenderness Back Exam Back exam: Present normal inspection and full ROM; Absent tenderness, CVA tenderness (R) or CVA tenderness (L) Neurological Exam Neurological exam: Present alert, oriented X3, CN II-XII intact, normal gait and reflexes normal; Absent motor sensory deficit Psychiatric Psychiatric exam: Present normal affect and normal mood Skin Skin exam: Present warm, dry, intact and normal color Lymphatic Lymphatic Findings: no adenopathy Medical Decision Making Medical Records Medical records reviewed: No I reviewed the patient's medical records. Nik Inquiry Pt receiving controlled substance: No
[2023-07-13 15:36] VITALS: BP 144/67; PULSE 72; RESP 20; TEMP 36.8; O2SAT 98
== END 2023-07-13 15:40 | disposition home or self-care (01) ==
PROVIDERS: Emergency Provider Nurse Practitioner Family; PCP Family Medicine
DX: H66.93 Otitis media, unspecified, bilateral (principal); J01.90 Acute sinusitis, unspecified; R05.9 Cough, unspecified; R09.81 Nasal congestion
CPT/HCPCS: 99212; 99214; G0463

== ENCOUNTER 2023-09-06 20:14 | Outpatient (CLI) | payer BC, SELFPAY ==
[2023-09-06 17:39] LABS: Coronavirus 19, PCR Not Detected (NotDetected); Influenza A, PCR Not Detected (NotDetected); Influenza B, PCR Not Detected (NotDetected)
== END 2023-09-06 23:59 ==
LOC: LAB.DROPOF 20:15
PROVIDERS: PCP Student in an Organized Health Care Education/Training Program; Visit Provider Student in an Organized Health Care Education/Training Program
DX: R05.9 Cough, unspecified (principal); R09.81 Nasal congestion; H92.01 Otalgia, right ear
CPT/HCPCS: 87636

== ENCOUNTER 2023-11-29 08:52 | Outpatient (CLI) | payer BC, SELFPAY ==
[2023-11-29] VITALS (8 sets, daily range): BP systolic 103–136; BP diastolic 58–94; PULSE 55–70; RESP 18; TEMP 36.7; O2SAT 96–99; BMI 40.4
--- NOTE | 2023-11-29 08:52 | CT_ITS ---
APPROVED REPORT Project Administrator: CLINICAL INDICATION Chest Pain TECHNIQUE Image Acquisition: A 128 slice MDCT scanner ([place] [employer]) was used for data acquisition. A noncontrast coronary calcium scan was performed. A CT attenuation threshold of 130 Hounsfield units (HU) was used for the detection of calcium in contiguous voxels of 1 sq mm in area to be counted as individual lesions. Bolus tracking in the ascending aorta with a threshold of 180 HU was performed. Immediately afterwards, ECG synchronized cardiac CT was then performed from the cardiac base to apex using retrospective gating with ECG tube current modulation. A total of 85 mL of Isovue 370 mg/mL contrast medium was administered at 5 mL/sec followed by a saline flush using a biphasic injection protocol. A tube voltage of 120 KVp was used. The patient received the following medications prior to the cardiac CT. 50 mg of oral metoprolol 15 mg of oral ivabradine 0.8 mg of sublingual nitroglycerin The average heart rate at the time of acquisition was 64 bpm and regular. Image Reconstruction Transaxial images were reconstructed at 0.67 mm slide thickness. Data was reviewed interactively on an advanced workstation capable of 2 and 3-dimensional displays in all conventional reconstruction formats, including multiplanar reformations, maximum intensity projections, curved multiplanar reformations, and volume rendered reconstructions. When applicable, selected routine images describing the relevant coronary anatomy and pathology were saved and sent to PACS. Complications None Technical Quality Overall image quality was suboptimal due to significant motion and step artifact. Coronary artery opacification was adequate. Total DLP (Dose-Length Product) is 1759.3 mGy-cm. The reported value represents the total of one or more individual components during the CT acquisition of this date and at this time, and as such, the same value may appear in more than one CT report depending on the interpreting/reporting physicians. COMPARISON None FINDINGS CT Coronary Calcium Scoring LMA (Left Main Artery) = 0 LAD (Left Anterior Descending) = 0 LCX (Left Coronary Circumflex) = 0 RCA (Right Coronary Artery) = 0 Total Calcium Score = 0 using the AJ-130 method. The interpretation of the calcium heart score is based on the following continuum*: 0 = no calcified plaque detected (risk of coronary artery disease is very low ??? less than 5%) 1-10 = calcium detected in extremely minimal levels (risk of coronary diseases is still low ??? less than 10%) 11-100 = mild levels of plaque detected with certainty (mild or minimal narrowing of heart arteries is likely) 101-400 = definite,at least moderate levels of plaque detected (relatively high risk of a heart attack within 3-5 years) >401-999 = extensive levels of plaque detected (high risk of heart attack, high levels of vascular disease are present, high likelihood of at least one significant coronary narrowing) *The calcium heart score quantifies the burden of coronary calcification/plaque in the coronary arteries. The calcium heart score is not able to evaluate the presence or burden of non-calcified (i.e. soft) plaque. There is no identifiable calcification in the aortic valve, mitral annulus or mitral valve, pericardium, or myocardium. Coronary CT Angiography The coronary arterial system is right dominant. Quantitative Stenosis Grading: Left Main (LM): The left main originates normally from the left sinus of Valsalva. The LM bifurcates into the left anterior descending artery and left circumflex artery. The LM is patent with no evidence of atherosclerosis. Left Anterior Descending (LAD) and Diagonal Branches: The LAD gives off 3 diagonal branch(es). The LAD and its branches are patent with no evidence of atherosclerosis. There is no evidence of LAD-myocardial bridge. Left Circumflex (LCX) and Obtuse Marginals (OM): The LCX gives off 2 Obtuse Marginal (OM) branch(es). The LCX and its branches are patent with no evidence of atherosclerosis. Right Coronary Artery (RCA): The RCA originates normally from the right sinus of Valsalva. The RCA gives off a posterior descending artery (PDA) and posterolateral (PL) branches. The RCA and its branches are patent with no evidence of atherosclerosis. Non-Coronary Cardiac Findings: Analysis of the left ventricular (LV) structure and function was performed after 3-D reconstruction of the LV from axial images, with user-corrected automatic contouring for assessment of LV volumes and user-defined reconstruction from oblique planes for measurement of 3-D cardiac structure and function. -The left ventricle systolic function is normal. -There is no left atrial appendage filling defect. Two right pulmonary veins and two left pulmonary veins drain normally into the left atrium. -No pericardial thickening or calcification. -Central and branch pulmonary arteries in the [id number] are unremarkable. -Thoracic aorta within the visualized thoracic aortic-branches in the [id number] is unremarkable. Extracardiac Structures No significant extra-cardiac findings. Note, however, that this study is focused on the cardiac findings. IMPRESSION -Suboptimal image quality due to significant motion and step artifact. Therefore, a segment of the proximal RCA is not well-visualized. -No coronary calcification with an Agatston score = 0 using the AJ-130 method. -No evidence of significant flow-limiting atherosclerosis of the coronary arteries. -CAD-RADS 0. Management recommendations per ACC/AHA guidelines*, as clinically appropriate. *Recommendations: CAD RADS 0: Reassurance. Consider non-atherosclerotic causes of chest pain. CAD RADS 1: Consider non-atherosclerotic causes of chest pain. Consider preventive therapy and risk factor modification. CAD RADS 2: Consider non-atherosclerotic causes of chest pain. Consider preventive therapy and risk factor modification, particularly for patients with nonobstructive plaque in multiple segments. CAD RADS 3: Consider further functional testing. Consider symptom-guided anti-ischemic and preventive pharmacotherapy as well as risk factor modification per published guideline statements. CAD RADS 4A: Consider further functional testing or invasive coronary angiography with revascularization per published guideline statements. Consider symptom-guided anti-ischemic and preventive pharmacotherapy as well as risk factor modification per published guideline statements. CAD RADS 4B: Invasive coronary angiography recommended with revascularization per published guideline statements. Consider symptom-guided anti-ischemic and preventive pharmacotherapy as well as risk factor modification per published guideline statements. CAD RADS 5: Consider invasive angiography and/or viability assessment with revascularization per published guideline statements. Consider symptom-guided anti-ischemic and preventive pharmacotherapy as well as risk factor modification per published guideline statements. CRITICAL RESULT None COMMUNICATION Per this written report The coronary and cardiac findings of this CCTA were reviewed, reported, and signed by Phil Domínguez MD (Object Oriented Programmer) Conclusion Electronically signed by : Emily Domínguez MD 12/02/2023 13:49:45
[2023-11-29 09:37] LABS: Blood Urea Nitrogen 14 mg/dl (7-17); Calcium 9.2 mg/dl (8.4-10.2); Carbon Dioxide 22 mmol/L (22.0-30.0); Chloride 109 mmol/L (98-107); Creatinine Clearance Estimated 137 mL/min (50-200); Estimated Glomerular Filt Rate 65 ml/min (>60); GFR (African American) 78 ML/MIN (>60); Glucose 100 mg/dl (74-100); Sodium 142 mmol/L (136-145)
[2023-11-29] MEDS: IVABRADINE HCL 7.5MG TABLET *IVABRADINE+METOPROLOL REGIMINE 15 MG PO (09:46)
[2023-11-29] MEDS: METOPROLOL TARTRATE 50MG TABLET *IVABRADINE+METOPROLOL REGIMINE 50 MG PO (09:47)
[2023-11-29 10:10] LABS: Anion Gap 14.6 mEq/L (5-15); Potassium 3.6 mmoL/L (3.5-5.1)
--- NOTE | 2023-11-29 10:39 | PC.NURSE ---
PT TO CT ROOM, 136/94 NITRO 0.8MG SL GIVEN PER PROTOCOL
--- NOTE | 2023-11-29 10:44 | PC.NURSE ---
5 MINUTES AFTER NITRO
--- NOTE | 2023-11-29 10:50 | PC.NURSE ---
TEST COMPLETE, PT NO C/O
[2023-11-29] MEDS: SODIUM CHLORIDE 0.9% 10ML SYR (RAD ONLY) 10 ML IV (10:53)
[2023-11-29] MEDS: 0.9 % SODIUM CHLORIDE 50 ML VIAL IV (10:53)
[2023-11-29] MEDS: IOPAMIDOL-370 (76%);100ML BOTTLE 85 ML IV (10:53)
--- NOTE | 2023-11-29 10:58 | PC.NURSE ---
TO POST OP FOR RECOVERY, VSS, NO C/O
--- NOTE | 2023-11-29 11:05 | CA_ITS ---
APPROVED REPORT EXAM: Comprehensive 2D, Doppler, and color-flow Echocardiogram Union Organizer: Saida Gay RDCS Ht: 5 ft 9 in Wt: 274lbs BSA: 2.36 BP: 143/64 mmHg Indications: CP M-Mode Dimensions RVDd 2.01 cm (0.9-2.6) LVDd 6.17 cm (3.5-5.7) LVDs 4.45 cm (3.5-5.7) IVSd 0.57 cm (0.6-1.1) PWd 0.90 cm (0.6-1.1) EF (Teich) 53.00% FS 27.90% EDV (Teich) 191.90 mL TAPSE 2.14 (<1.7) ESV (Teich) 90.10 mL LV Diastology E Decel Time 180 (160-240 msec) E/A Ratio 1.2 Mitral Valve MV E Max Dustin. 105.0 (40-130 cm/s) MV A Velocity 88.0 (40-130 cm/s) E/A Ratio 1.19 MV PHT 53.0 ms Left Ventricle The left ventricle is normal size. The left ventricular systolic function is low normal. There is normal left ventricular wall thickness. There is normal LV segmental wall motion. The left ventricular diastolic function is normal. LVEF is 50% Right Ventricle The right ventricle is mildly dilated. Right ventricle is mildly hypokinetic. Atria The left atrium size is normal. The right atrium size is normal. There is no Doppler evidence of interatrial shunt. Aortic Valve The aortic valve opens well. There is no aortic valvular stenosis. No aortic regurgitation. Mitral Valve The mitral valve leaflets are mildly thickened. There is mild prolapse of the posterior mitral valve leaflet. No evidence of mitral valve stenosis. Mild mitral valve regurgitation. Tricuspid Valve The tricuspid valve leaflets are thin and pliable. Trace tricuspid regurgitation. There is insufficient TR jet to estimate RVSP. Pulmonic Valve The pulmonary valve is normal in structure. Trace pulmonic regurgitation. Great Vessels The aortic root is normal in size. The ascending aorta is normal in size. IVC is normal in size and collapses >50% with inspiration. Pericardium There is no pericardial effusion. Other Information Study Quality: Fair Conclusion Low normal LV systolic function (LVEF 50%). Mildly dilated RV with mild reduction in RV function. Mild posterior MV leaflet prolapse. Mild MR. Electronically signed by : Emily Domínguez MD 12/01/2023 22:22:16
--- NOTE | 2023-11-29 11:31 | PC.NURSE ---
PT TO ECHO FOR NEXT TEST.
== END 2023-11-29 11:33 | disposition home or self-care (01) ==
PROVIDERS: PCP Family Medicine; Visit Provider Nurse Practitioner Family
DX: R07.89 Other chest pain (principal); Z86.79 Personal history of other diseases of the circulatory system; R94.31 Abnormal electrocardiogram [ECG] [EKG]
CPT/HCPCS: 75571; 75574; 80048; 93306; Q9967

== ENCOUNTER 2024-01-20 09:34 | Outpatient (CLI) | payer BC, SELFPAY ==
--- NOTE | 2024-01-20 09:42 | XR_ITS ---
FINAL REPORT CLINICAL HISTORY: LEFT SIDED CHEST WALL PAIN FINDINGS: THORACIC SPINE 2 views were obtained. There is no acute fracture. Vertebrae are normal height. Leftward curvature is noted. There are mild degenerative changes with osteophytes. There is no soft tissue abnormality. IMPRESSION: No acute bony abnormality. Reviewed, Interpreted and Dictated by Moshe Hernandez III, MD Transcribed by Steffi Jung Authenticated and [facility]
--- NOTE | 2024-01-20 09:44 | XR_ITS ---
FINAL REPORT CLINICAL HISTORY: LEFT SIDED RIB PAIN FINDINGS: LEFT RIBS WITH CHEST A single PA view of the chest and three views of the left ribs were obtained. The heart and mediastinum within normal limits. There is no active disease. There is no pneumothorax. There is no acute displaced rib fracture. IMPRESSION: No acute cardiopulmonary process or displaced rib fracture. Reviewed, Interpreted and Dictated by Moshe Hernandez III, MD Transcribed by Steffi Jung Authenticated and [facility]
== END 2024-01-20 23:59 | disposition home or self-care (01) ==
LOC: RAD 09:34
PROVIDERS: PCP Family Medicine; Visit Provider Family Medicine
DX: R07.89 Other chest pain (principal)
CPT/HCPCS: 71101; 72072

== ENCOUNTER 2024-01-23 15:55 | Emergency (ER) | payer BC, SELFPAY ==
--- NOTE | 2024-01-23 16:00 | ED_ITS ---
Discharge Plan Disposition Patient Disposition: Home, Self-Care Condition: Good Prescriptions Prescriptions: No Action Linzess 72 mcg capsule 72 mcg PO DAILY quetiapine 50 mg tablet extended release 24 hr 50 mg PO QPM Rinvoq 15 mg tablet extended release 24 hr 15 mg PO DAILY dexlansoprazole 60 mg capsule,biphase delayed releas 60 mg PO DAILY Patient Comments: TAKE 1 CAPSULE BY MOUTH ONCE DAILY BEFORE MEAL levocetirizine [Xyzal] 5 mg tablet 5 mg PO DAILY Qty: 30 2RF azelastine 137 mcg (0.1 %) aerosol,spray 2 spray intranasal BID Qty: 30 2RF Rx Instructions: administer into each nostril gabapentin 300 mg capsule 300 mg PO TID duloxetine 60 mg capsule,delayed release(DR/EC) 60 mg PO QDAY topiramate 100 mg capsule,extended release 24hr 100 mg PO QDAY metoprolol succinate 100 mg tablet extended release 24 hr 100 mg PO BID cholecalciferol (vitamin D3) 5,000 unit capsule 5,000 unit PO QDAY pantoprazole 40 mg tablet,delayed release (DR/EC) 40 mg PO DAILY cyclobenzaprine 10 mg tablet 10 mg PO TID tramadol 50 mg tablet 50 mg PO Q8H PRN (Reason: Pain) famotidine 40 mg tablet 40 mg PO DAILY hydroxyzine HCl 25 mg tablet 25 mg PO BID PRN (Reason: Anxiety) Referrals Follow up/Referrals: Abel Cleary MD [Primary Care Provider] - See instructions Activity Restrictions/Add. Instructions Additional Instructions/Restrictions: Please keep the area clean dry and covered. Do not put any occlusive or wet dressings over the sutures. Return to the ER immediately for any increased swelling bleeding pain fever etc. Your suture needs to come out in 5 days under physician supervision. Clinical Impressions Clinical Impression: Bleeding from varicose vein Discharge ED Provider: Harish Sarmiento General Adult HPI <JODEE Jara - Last Filed: 01/23/24 17:20> General Chief complaint: Skin/Abscess/Foreign Body Stated complaint: Right leg vein bursted Time Seen by Provider: 01/23/24 15:57 History of Present Illness HPI narrative: Patient presents for spontaneous venous bleeding in her right lower extremity. Patient states she was taking a shower and drying off when she suddenly had a spot of blood just proximal to her medial malleolus. She was able to get it stopped with pressure and came to the ER for evaluation. Patient is not on blood thinners denies any chest pain fever chills hemoptysis hematochezia melena nausea vomit diarrhea. Related Data Home Medications Medication Instructions Recorded Confirmed cholecalciferol (vitamin D3) 125 5,000 unit PO QDAY 07/28/17 12/19/23 mcg (5,000 unit) capsule duloxetine 60 mg capsule,delayed 60 mg PO QDAY 07/28/17 12/19/23 release gabapentin 300 mg capsule 300 mg PO TID 07/28/17 12/19/23 metoprolol succinate 100 mg 100 mg PO BID 07/28/17 12/19/23 tablet,extended release 24 hr topiramate 100 mg capsule,extended 100 mg PO QDAY 07/28/17 12/19/23 release 24 hr linaclotide 72 mcg capsule 72 mcg PO DAILY 09/04/18 12/19/23 (Linzess) quetiapine 50 mg tablet,extended 50 mg PO QPM 06/18/19 12/19/23 release 24 hr cyclobenzaprine 10 mg tablet 10 mg PO TID 12/06/22 12/19/23 famotidine 40 mg tablet 40 mg PO DAILY 12/06/22 12/19/23 hydroxyzine HCl 25 mg tablet 25 mg PO BID PRN Anxiety 12/06/22 12/19/23 pantoprazole 40 mg tablet,delayed 40 mg PO DAILY 12/06/22 12/19/23 release tramadol 50 mg tablet 50 mg PO Q8H PRN Pain 12/06/22 12/19/23 upadacitinib 15 mg tablet,extended 15 mg PO DAILY 09/06/23 12/19/23 release 24 hr (Rinvoq) dexlansoprazole 60 mg 60 mg PO DAILY 09/23/23 12/19/23 capsule,biphase delayed release Previous Rx's Medication Instructions Recorded azelastine 137 mcg (0.1 %) nasal 2 spray intranasal BID #30 mL 09/23/23 spray levocetirizine 5 mg tablet (Xyzal) 5 mg PO DAILY #30 tabs 09/23/23 Allergies Allergy/AdvReac Type Severity Reaction Status Date / Time hydroxychloroquine Allergy Verified 11/29/23 09:07 codeine AdvReac Mild Verified 11/29/23 09:07 PFSH <JODEE Jara - Last Filed: 01/23/24 17:20> [facility] Disclaimer: The information contained in this section may have been updated after the patient was seen, as this information can be updated by other users. Medical History (Updated 01/23/24 @ 17:20 by JODEE Jara) History of mitral valve prolapse Hypertension Chest pain Retraction of tympanic membrane Psoriatic arthritis Fibromyalgia Surgical History (Updated 11/29/23 @ 09:10 by Sharon Watkins, RN) History of tubal ligation History of cholecystectomy No significant past surgical history Family History (Updated 11/29/23 @ 09:10 by Sharon Watkins RN) Family/Other No significant family history Other Family history of Alzheimer's disease Social History Smoking Status: Never smoker alcohol intake: never substance use type: denies use current occupational status: other Travel in the last 8 weeks: None household members: family housing: house <JODEE Jraa - Last Filed: 01/23/24 17:20> ROS Obtained: Yes Systems reviewed as appropriate & no additional complaints except as documented Physical Exam <JODEE Jara - Last Filed: 01/23/24 17:20> General General appearance: alert and in no apparent distress Respiratory Respiratory exam: Present normal lung sounds bilaterally and accessory muscle use Cardiovascular Cardiovascular exam: Present regular rate and normal rhythm Expanded Lower Extremity Exam Right: Ankle image: 2 1. Venous varicosity with 1 mm opening that briskly venous bleeds when pressure not applied Neurological Exam Neurological exam: Present alert and oriented X3 Medical Decision Making <JODEE Jara - Last Filed: 01/23/24 17:20> Medical Records Medical records reviewed: Yes I reviewed the patient's medical records. Nik Inquiry Pt receiving controlled substance: No Vital Signs: 01/23/24 16:06 01/23/24 16:12 01/23/24 16:31 Temperature 98.2 F Temperature Source Oral Pulse Rate 87 83 Pulse Rate [Left Radial] 89 Respiratory Rate 20 Blood Pressure 135/67 114/57 L Blood Pressure [Right Arm] 135/67 Blood Pressure Mean [Right Arm] 89 02 Sat by Pulse Oximetry 96 94 L 97 Oxygen Delivery Method Room Air Room Air 01/23/24 17:49 Temperature 98.2 F Temperature Source Pulse Rate 91 H Pulse Rate [Left Radial] Respiratory Rate 18 Blood Pressure 114/71 Blood Pressure [Right Arm] Blood Pressure Mean [Right Arm] 02 Sat by Pulse Oximetry Oxygen Delivery Method Room Air Lab Data Lab results reviewed: Yes I reviewed the patient's lab results. Orders (Tests/Meds): ED MEDICATIONS Discontinued Medications Generic Name Dose Route Start Last Admin Trade Name Nabil PRN Reason Stop Dose Admin Tetanus/Reduced Diphtheria/Acell Pertussis 0.5 ml 01/23/24 17:24 01/23/24 17:39 Tet/Diphth/Pert-Adult 0.5ml Syringe IM 01/23/24 17:25 0.5 ml .ONCE ONE Administration Medical Decision Narrative: In summary patient is a 58 who presents to the emergency department for evaluation of spontaneous superficial venous bleeding. Patient is hemodynamically stable upon arrival, afebrile. Physical exam is remarkable for a venous varicosity complex the medial aspect proximal to the medial malleolus that has a 1 mm hole that bleeds briskly venous blood when pressure removed. Peripheral pulses intact grossly to exam and marked by myself.. Differential diagnosis includes venous stasis ulcer versus varicosity bleeding Cetera. Initial workup will be conducted with hematologic labs. Initial interventions include Surgicel and direct pressure. Initial workup reviewed by me and her hematologic labs are nonactionable. Upon repeat evaluation unfortunately Surgicel did not work therefore I utilized a [id number] stitch to control the venous bleeding with excellent success. Given this patient is appropriate for discharge with follow-up with her PCP in 48 hours. Return to the ER for any worsening signs or symptoms. Sutures need to come out in 5 days. <Harish Sarmiento MD - Last Filed: 01/23/24 18:36> Vital Signs: 01/23/24 16:06 01/23/24 16:12 01/23/24 16:31 Temperature 98.2 F Temperature Source Oral Pulse Rate 87 83 Pulse Rate [Left Radial] 89 Respiratory Rate 20 Blood Pressure 135/67 114/57 L Blood Pressure [Right Arm] 135/67 Blood Pressure Mean [Right Arm] 89 02 Sat by Pulse Oximetry 96 94 L 97 Oxygen Delivery Method Room Air Room Air 01/23/24 17:49 Temperature 98.2 F Temperature Source Pulse Rate 91 H Pulse Rate [Left Radial] Respiratory Rate 18 Blood Pressure 114/71 Blood Pressure [Right Arm] Blood Pressure Mean [Right Arm] 02 Sat by Pulse Oximetry Oxygen Delivery Method Room Air Orders (Tests/Meds): ED MEDICATIONS Discontinued Medications Generic Name Dose Route Start Last Admin Trade Name Nabil PRN Reason Stop Dose Admin Tetanus/Reduced Diphtheria/Acell Pertussis 0.5 ml 01/23/24 17:24 01/23/24 17:39 Tet/Diphth/Pert-Adult 0.5ml Syringe IM 01/23/24 17:25 0.5 ml .ONCE ONE Administration Medical Decision Narrative: In summary patient is a 58 who presents to the emergency department for evaluation of spontaneous superficial venous bleeding. Patient is hemodynamically stable upon arrival, afebrile. Physical exam is remarkable for a venous varicosity complex the medial aspect proximal to the medial malleolus that has a 1 mm hole that bleeds briskly venous blood when pressure removed. Peripheral pulses intact grossly to exam and marked by myself.. Differential diagnosis includes venous stasis ulcer versus varicosity bleeding Cetera. Initial workup will be conducted with hematologic labs. Initial interventions include Surgicel and direct pressure. Initial workup reviewed by me and her hematologic labs are nonactionable. Upon repeat evaluation unfortunately Surgicel did not work therefore I utilized a [id number] stitch to control the venous bleeding with excellent success. Given this patient is appropriate for discharge with follow-up with her PCP in 48 hours. Return to the ER for any worsening signs or symptoms. Sutures need to come out in 5 days. I was consulted by the JOANNE, and we discussed the complexity of the problems being addressed. I approved the treatment and management plan for this patient?s care in the Emergency Department, thus performing a substantive portion of the medical decision making. Harish Sarmiento MD Procedures <JODEE Jara - Last Filed: 01/23/24 17:20> Miscellaneous Procedure Procedure Performed: Superficial vein bleeding medial aspect right lower extremity proximal to the medial malleolus Wound prepped with Betadine With an assistance help I was able to control bleeding long enough to explore the area and this is a single site of bleeding within a venous varicosity complex. No deeper structures involved. Patient is neurovascularly intact prior to procedure and postprocedure and pulses confirmed PT DP post procedure Anesthesia lidocaine with epi 5 cc infiltrated A single [id number]-[id number] stitch with 4-0 Prolene achieved hemostatic control. Sterile dressing applied and sutures need to come out in 5 days under physician supervision Critical Care <JODEE Jara - Last Filed: 01/23/24 17:20> Critical Care Time Critical Care Time: No
[2024-01-23 16:06] VITALS: BP 135/67; PULSE 87; O2SAT 96
[2024-01-23 16:12] VITALS: BP 135/67; PULSE 89; RESP 20; TEMP 36.8; O2SAT 94; BMI 38.4
[2024-01-23 16:31] VITALS: BP 114/57; PULSE 83; O2SAT 97
[2024-01-23] MEDS: TET/DIPHTH/PERT-ADULT 0.5ML SYRINGE 0.5 ML IM (17:39)
[2024-01-23 17:49] VITALS: BP 114/71; PULSE 91; RESP 18; TEMP 36.8; O2SAT 97
== END 2024-01-23 17:50 | disposition home or self-care (01) ==
PROVIDERS: Emergency Provider Emergency Medicine; PCP Family Medicine
DX: I83.891 Varicose veins of right lower extremity with other complications (principal); I10 Essential (primary) hypertension; Z23 Encounter for immunization
CPT/HCPCS: 12001; 90471; 90715; 99283

== ENCOUNTER 2024-01-30 08:21 | Outpatient (CLI) | payer BC, SELFPAY ==
--- NOTE | 2024-01-30 08:27 | MM_ITS ---
PROCEDURE INFORMATION: Exam: MG Bilateral Screening 3D Mammography Exam date and time: 01/30/2024 8:34 AM Age: 58 years old Clinical indication: Screening examination TECHNIQUE: Imaging protocol: Bilateral Screening tomosynthesis and 2D mammography including computer-aided detection (CAD) when performed. COMPARISON: 1. MG MAMMO SCREENING DIGITAL TOMOSYNTHESIS BILATERAL W CAD 12/15/2019 8:51 AM 2. MG MAMMO HISTORICAL RESULT 12/07/2011 1:47 PM FINDINGS: MAMMOGRAPHY: Breast composition: The breasts are heterogeneously dense, which may obscure small masses. Mass: None. Architectural distortion: None. Calcifications: No suspicious calcifications. Asymmetric density: None. Skin thickening: None. Axillary adenopathy: None. IMPRESSION: No mammographic evidence of malignancy. Annual screening is recommended unless otherwise clinically indicated. ASSESSMENT: BI-RADS Category 1: Negative
== END 2024-01-30 23:59 | disposition home or self-care (01) ==
LOC: RAD 08:21
PROVIDERS: PCP Family Medicine; Visit Provider Family Medicine
DX: Z12.31 Encounter for screening mammogram for malignant neoplasm of breast (principal)
CPT/HCPCS: 77063; 77067

== ENCOUNTER 2024-04-22 13:49 | Emergency (ER) | payer BC, SELFPAY ==
--- NOTE | 2024-04-22 13:59 | EXP.UTC ---
Discharge Plan Disposition Patient Disposition: Home, Self-Care Condition: Good Prescriptions Prescriptions: New cephalexin 500 mg capsule 500 mg PO QID 7 Days Qty: 28 0RF No Action Linzess 72 mcg capsule 72 mcg PO DAILY quetiapine 50 mg tablet extended release 24 hr 50 mg PO QPM Rinvoq 15 mg tablet extended release 24 hr 15 mg PO DAILY dexlansoprazole 60 mg capsule,biphase delayed releas 60 mg PO DAILY Patient Comments: TAKE 1 CAPSULE BY MOUTH ONCE DAILY BEFORE MEAL levocetirizine [Xyzal] 5 mg tablet 5 mg PO DAILY Qty: 30 2RF azelastine 137 mcg (0.1 %) aerosol,spray 2 spray intranasal BID Qty: 30 2RF Rx Instructions: administer into each nostril gabapentin 300 mg capsule 300 mg PO TID duloxetine 60 mg capsule,delayed release(DR/EC) 60 mg PO QDAY topiramate 100 mg capsule,extended release 24hr 100 mg PO QDAY metoprolol succinate 100 mg tablet extended release 24 hr 100 mg PO BID cholecalciferol (vitamin D3) 5,000 unit capsule 5,000 unit PO QDAY pantoprazole 40 mg tablet,delayed release (DR/EC) 40 mg PO DAILY cyclobenzaprine 10 mg tablet 10 mg PO TID tramadol 50 mg tablet 50 mg PO Q8H PRN (Reason: Pain) famotidine 40 mg tablet 40 mg PO DAILY hydroxyzine HCl 25 mg tablet 25 mg PO BID PRN (Reason: Anxiety) Referrals Follow up/Referrals: Abel Cleary MD [Primary Care Provider] - See instructions Activity Restrictions/Add. Instructions Additional Instructions/Restrictions: Keep the wound clean and dry. Keep a dressing on it if you are going to be getting it dirty. Watch the wound for signs of infection, such as redness, swelling, drainage, fever. etc. Take tylenol or ibuprofen for pain. Follow up with your regular doctor. Return in 7 to 10 days to have the sutures removed. GO TO THE ER FOR ANY WORSENING SYMPTOMS OR CONCERNS. Clinical Impressions Clinical Impression: Laceration of left index finger Instructions Patient Instructions: DI for Laceration Repair -- Finger Print Language Print Language: Turkmen Discharge ED Provider: Miguel Angel Mixon [facility] General Stated complaint: [id number] hours-laceration to L index finger Time Seen by Provider: 04/22/24 13:59 History of Present Illness Provider Complaint: She states that she was using a knife to open a drink when she slipped and cut the back of her left index finger. Her tetanus immunization is up to date. Related Data Home Medications ?Medication ?Instructions ?Recorded ?Confirmed cholecalciferol (vitamin D3) 125 5,000 unit PO QDAY 07/28/17 12/19/23 mcg (5,000 unit) capsule duloxetine 60 mg capsule,delayed 60 mg PO QDAY 07/28/17 12/19/23 release gabapentin 300 mg capsule 300 mg PO TID 07/28/17 12/19/23 metoprolol succinate 100 mg 100 mg PO BID 07/28/17 12/19/23 tablet,extended release 24 hr topiramate 100 mg capsule,extended 100 mg PO QDAY 07/28/17 12/19/23 release 24 hr linaclotide 72 mcg capsule 72 mcg PO DAILY 09/04/18 12/19/23 (Linzess) quetiapine 50 mg tablet,extended 50 mg PO QPM 06/18/19 12/19/23 release 24 hr cyclobenzaprine 10 mg tablet 10 mg PO TID 12/06/22 12/19/23 famotidine 40 mg tablet 40 mg PO DAILY 12/06/22 12/19/23 hydroxyzine HCl 25 mg tablet 25 mg PO BID PRN Anxiety 12/06/22 12/19/23 pantoprazole 40 mg tablet,delayed 40 mg PO DAILY 12/06/22 12/19/23 release tramadol 50 mg tablet 50 mg PO Q8H PRN Pain 12/06/22 12/19/23 upadacitinib 15 mg tablet,extended 15 mg PO DAILY 09/06/23 12/19/23 release 24 hr (Rinvoq) dexlansoprazole 60 mg 60 mg PO DAILY 09/23/23 12/19/23 capsule,biphase delayed release Previous Rx's ?Medication ?Instructions ?Recorded azelastine 137 mcg (0.1 %) nasal 2 spray intranasal BID #30 mL 09/23/23 spray levocetirizine 5 mg tablet (Xyzal) 5 mg PO DAILY #30 tabs 09/23/23 cephalexin 500 mg capsule 500 mg PO QID 7 days #28 caps 04/22/24 Allergies Allergy/AdvReac Type Severity Reaction Status Date / Time hydroxychloroquine Allergy Verified 11/29/23 09:07 codeine AdvReac Mild Verified 11/29/23 09:07 [facility] Disclaimer: The information contained in this section may have been updated after the patient was seen, as this information can be updated by other users. Medical History (Updated 04/22/24 @ 15:01 by Miguel Angel Mixon APRN) History of mitral valve prolapse Hypertension Chest pain Retraction of tympanic membrane Psoriatic arthritis Fibromyalgia Surgical History (Updated 11/29/23 @ 09:10 by Sharon Watkins RN) History of tubal ligation History of cholecystectomy No significant past surgical history Family History (Updated 11/29/23 @ 09:10 by Sharon Watkins RN) Family/Other No significant family history Other Family history of Alzheimer's disease Social History Smoking Status: Never smoker alcohol intake: never substance use type: denies use current occupational status: other Travel in the last 8 weeks: None household members: family housing: house ROS Obtained: Yes All systems reviewed & no additional complaints except as documented Constitutional Constitutional: Denies chills and Denies fever(s) Eyes Eyes: Denies eye discharge ENT Ears, Nose, Mouth, and Throat: Denies dizziness, Denies otalgia and Denies sore throat Cardiovascular Cardiovascular: Denies chest pain Respiratory Respiratory: Denies shortness of breath, Denies chest congestion, Denies cough, Denies stridor and Denies wheezing Gastrointestinal Gastrointestingal: Denies nausea or vomiting Musculoskeletal Musculoskeletal: Reports system reviewed and no additional complaints, except as documented and Denies arthralgias Integumentary/Breasts Skin/Breast: Reports as per HPI Neurologic Neurologic: Denies dizziness and Denies paresthesias Allergic/Immunologic Allergic/Immunologic: Denies wheezing Physical Exam General General appearance: alert and in no apparent distress Head Head exam: atraumatic, normocephalic and normal inspection Eye Eye exam: Present normal appearance, PERRL and EOMI ENT ENT exam: Present normal exam, normal oropharynx, mucous membranes moist, TM's normal bilaterally and normal external ear exam Neck Neck exam: Present normal inspection, full ROM and trachea midline; Absent meningismus or lymphadenopathy Chest Chest inspection: Present normal inspection and symmetric chest wall rise; Absent tenderness Respiratory Respiratory exam: Present normal lung sounds bilaterally; Absent respiratory distress Cardiovascular Cardiovascular exam: Present regular rate and normal rhythm; Absent JVD Abdominal Exam Abdominal exam: Present soft and normal bowel sounds; Absent distention, tenderness or guarding Extremities Exam Extremities exam: Present normal capillary refill; Absent calf tenderness Expanded Upper Extremity Exam Left: Hand exam: Present full ROM, tenderness and laceration; Absent swelling, abrasion, skin avulsion, ecchymosis, deformity, crepitus, dislocation, erythema, amputation or nail avulsion Hand L/R back image: 1. laceration Neuromotor exam: Normal wrist extension, thumb opposition, thumb IP flexion, thumb adduction and fingers 2-5 abduction Neurosensory exam: Normal radial nerve, ulnar nerve and median nerve Vascular exam: Normal capillary refill, radial pulse and ulnar pulse Back Exam Back exam: Present normal inspection; Absent tenderness Neurological Exam Neurological exam: Present alert and oriented X3 Psychiatric Psychiatric exam: Present normal affect and normal mood Skin Skin exam: Present other (on the dorsal surface of her left index finger there is a 1.5 cm linear laceration, no deep tissue or tendon damage noted. no foreign body. she has good 2 point touch discrimination distal to the wound. ) Lymphatic Lymphatic Findings: no adenopathy Medical Decision Making Medical Records Screening: Per USPSTF and CDC recommendations, given the prevalence of disease in our region, it is our hospital?s policy to screen for HIV and viral Hepatitis for all patients aged 18 and over and those with ongoing risk factors. Nik Inquiry Pt receiving controlled substance: No Procedures Risk/Benefits of Procedure(s) Were Explained: Yes Laceration Laceration 1: Site: finger (index) Side (If applicable): left Size (cm): 1.5 Description: linear Depth: simple, single layer Local Anesthetic: lidocaine 1% Amount of anesthesia used (mL): 1.5 Pre-repair: wound explored, irrigated extensively and deep structures intact Skin layer closed with: nylon Size (cm): 5-0 Number of sutures: 5 Technique: simple, interrupted (She tolerated this well, good closure was obtained, the edges were approximated well. )
[2024-04-22 14:08] VITALS: BP 136/67; PULSE 84; RESP 20; TEMP 36.6; O2SAT 97; BMI 38.4
[2024-04-22 15:03] VITALS: BP 136/67; PULSE 84; RESP 20; TEMP 36.6
== END 2024-04-22 15:09 | disposition home or self-care (01) ==
PROVIDERS: Emergency Provider Nurse Practitioner Family; PCP Family Medicine
DX: S61.211A Laceration without foreign body of left index finger without damage to nail, initial encounter (principal); W26.0XXA Contact with knife, initial encounter
CPT/HCPCS: 12002; 99213; G0381

== ENCOUNTER 2024-05-08 16:07 | Emergency (ER) | payer BC, SELFPAY ==
[2024-05-08 17:14] VITALS: BP 120/67; PULSE 103; RESP 20; TEMP 37.2; O2SAT 96; BMI 38.4
--- NOTE | 2024-05-08 17:14 | ED_ITS ---
Discharge Plan Disposition Patient Disposition: Home, Self-Care Condition: Good Prescriptions Prescriptions: New promethazine-DM 6.25-15 mg/5 mL Syrup 5 ml PO Q6H PRN (Reason: Cough) Qty: 240 0RF methylprednisolone 4 mg Tablets,Dose Pack 4 mg PO DIRECTED 6 Days Qty: 21 0RF Rx Instructions: Take 1 pack as directed for 6 days amoxicillin-pot clavulanate 875-125 mg Tablet 1 tab PO Q12H Qty: 20 0RF No Action Linzess 72 mcg capsule 72 mcg PO DAILY quetiapine 50 mg tablet extended release 24 hr 50 mg PO QPM Rinvoq 15 mg tablet extended release 24 hr 15 mg PO DAILY dexlansoprazole 60 mg capsule,biphase delayed releas 60 mg PO DAILY Patient Comments: TAKE 1 CAPSULE BY MOUTH ONCE DAILY BEFORE MEAL levocetirizine [Xyzal] 5 mg tablet 5 mg PO DAILY Qty: 30 2RF azelastine 137 mcg (0.1 %) aerosol,spray 2 spray intranasal BID Qty: 30 2RF Rx Instructions: administer into each nostril gabapentin 300 mg capsule 300 mg PO TID duloxetine 60 mg capsule,delayed release(DR/EC) 60 mg PO QDAY topiramate 100 mg capsule,extended release 24hr 100 mg PO QDAY metoprolol succinate 100 mg tablet extended release 24 hr 100 mg PO BID cholecalciferol (vitamin D3) 5,000 unit capsule 5,000 unit PO QDAY pantoprazole 40 mg tablet,delayed release (DR/EC) 40 mg PO DAILY cyclobenzaprine 10 mg tablet 10 mg PO TID tramadol 50 mg tablet 50 mg PO Q8H PRN (Reason: Pain) famotidine 40 mg tablet 40 mg PO DAILY hydroxyzine HCl 25 mg tablet 25 mg PO BID PRN (Reason: Anxiety) cephalexin 500 mg capsule 500 mg PO QID 7 Days Qty: 28 0RF Referrals Follow up/Referrals: Abel Cleary MD [Primary Care Provider] - See instructions Activity Restrictions/Add. Instructions Additional Instructions/Restrictions: Drink plenty of fluids. Take tylenol or ibuprofen for pain or fever. Take the medications as directed. Follow up with your regular doctor. GO TO THE ER FOR ANY WORSENING SYMPTOMS The cough medication (promethazine dm) will make you drowsy, so don't drive or operate heavy machinery after taking it. Clinical Impressions Clinical Impression: Sinusitis Qualifiers: Sinusitis location: maxillary Chronicity: acute Recurrence: recurrent Qualified Code(s): J01.01 - Acute recurrent maxillary sinusitis Instructions Patient Instructions: Sinusitis, DI for Sinusitis Print Language Print Language: Luxembourgish Discharge ED Provider: Miguel Angel Mixon [facility] HPI General Stated complaint: sore throat,cough,congestion,BENAVIDES Time Seen by Provider: 05/08/24 17:14 Related Data Home Medications ?Medication ?Instructions ?Recorded ?Confirmed cholecalciferol (vitamin D3) 125 5,000 unit PO QDAY 07/28/17 12/19/23 mcg (5,000 unit) capsule duloxetine 60 mg capsule,delayed 60 mg PO QDAY 07/28/17 12/19/23 release gabapentin 300 mg capsule 300 mg PO TID 07/28/17 12/19/23 metoprolol succinate 100 mg 100 mg PO BID 07/28/17 12/19/23 tablet,extended release 24 hr topiramate 100 mg capsule,extended 100 mg PO QDAY 07/28/17 12/19/23 release 24 hr linaclotide 72 mcg capsule 72 mcg PO DAILY 09/04/18 12/19/23 (Linzess) quetiapine 50 mg tablet,extended 50 mg PO QPM 06/18/19 12/19/23 release 24 hr cyclobenzaprine 10 mg tablet 10 mg PO TID 12/06/22 12/19/23 famotidine 40 mg tablet 40 mg PO DAILY 12/06/22 12/19/23 hydroxyzine HCl 25 mg tablet 25 mg PO BID PRN Anxiety 12/06/22 12/19/23 pantoprazole 40 mg tablet,delayed 40 mg PO DAILY 12/06/22 12/19/23 release tramadol 50 mg tablet 50 mg PO Q8H PRN Pain 12/06/22 12/19/23 upadacitinib 15 mg tablet,extended 15 mg PO DAILY 09/06/23 12/19/23 release 24 hr (Rinvoq) dexlansoprazole 60 mg 60 mg PO DAILY 09/23/23 12/19/23 capsule,biphase delayed release Previous Rx's ?Medication ?Instructions ?Recorded azelastine 137 mcg (0.1 %) nasal 2 spray intranasal BID #30 mL 09/23/23 spray levocetirizine 5 mg tablet (Xyzal) 5 mg PO DAILY #30 tabs 09/23/23 cephalexin 500 mg capsule 500 mg PO QID 7 days #28 caps 04/22/24 amoxicillin 875 mg-potassium 1 tab PO Q12H #20 tabs 05/08/24 clavulanate 125 mg tablet methylprednisolone 4 mg tablets in 4 mg PO DIRECTED 6 days #21 tabs 05/08/24 a dose pack promethazine-DM 6.25 mg-15 mg/5 mL 5 ml PO Q6H PRN Cough #240 mL 05/08/24 oral syrup Allergies Allergy/AdvReac Type Severity Reaction Status Date / Time hydroxychloroquine Allergy Verified 11/29/23 09:07 codeine AdvReac Mild Verified 11/29/23 09:07 [facility] Disclaimer: The information contained in this section may have been updated after the patient was seen, as this information can be updated by other users. Medical History (Updated 05/08/24 @ 17:23 by Miguel Angel Mixon APRN) History of mitral valve prolapse Hypertension Chest pain Retraction of tympanic membrane Psoriatic arthritis Fibromyalgia Surgical History (Updated 11/29/23 @ 09:10 by Sharon Watkins RN) History of tubal ligation History of cholecystectomy No significant past surgical history Family History (Updated 11/29/23 @ 09:10 by Sharon Watkins RN) Family/Other No significant family history Other Family history of Alzheimer's disease Social History Smoking Status: Never smoker alcohol intake: never substance use type: denies use current occupational status: other Travel in the last 8 weeks: None household members: family housing: house ROS Obtained: Yes All systems reviewed & no additional complaints except as documented Constitutional Constitutional: Reports poor appetite Eyes Eyes: Reports system reviewed and no additional complaints, except as documented ENT Ears, Nose, Mouth, and Throat: Reports as per HPI Cardiovascular Cardiovascular: Reports system reviewed and no additional complaints, except as documented and Denies chest pain Respiratory Respiratory: Denies shortness of breath, Reports chest congestion, Reports cough, Denies stridor and Denies wheezing Gastrointestinal Gastrointestingal: Reports system reviewed and no additional complaints, except as documented; Denies abdominal pain, diarrhea or vomiting Musculoskeletal Musculoskeletal: Reports system reviewed and no additional complaints, except as documented and Denies arthralgias Integumentary/Breasts Skin/Breast: Reports system reviewed and no additional complaints, except as documented and Denies rash Neurologic Neurologic: Denies paresthesias Allergic/Immunologic Allergic/Immunologic: Denies wheezing Physical Exam General General appearance: alert and in no apparent distress Eye Eye exam: Present normal appearance, PERRL and EOMI ENT ENT exam: Present mucous membranes moist and normal external ear exam Expanded ENT Exam External ear exam: Present normal external inspection TM/Canal exam: Bilateral TM: erythema and bulging Nose exam: Absent sinus tenderness Nasal speculum exam: Bilateral: normal Mouth exam: Present normal external inspection; Absent drooling Teeth exam: Present normal inspection Throat exam: Present tonsillar erythema and tonsillomegaly Neck Neck exam: Present normal inspection, full ROM and trachea midline; Absent tenderness, lymphadenopathy or thyromegaly Chest Chest inspection: Present normal inspection and symmetric chest wall rise; Absent tenderness or rash Respiratory Respiratory exam: Present normal lung sounds bilaterally; Absent respiratory distress, wheezes, stridor or accessory muscle use Cardiovascular Cardiovascular exam: Present regular rate, normal rhythm and normal heart sounds Abdominal Exam Abdominal exam: Present soft; Absent distention, tenderness, guarding, rebound or rigidity Extremities Exam Extremities exam: Present normal inspection, full ROM and normal capillary refill; Absent tenderness or calf tenderness Back Exam Back exam: Present normal inspection and full ROM; Absent tenderness Neurological Exam Neurological exam: Present alert and oriented X3 Psychiatric Psychiatric exam: Present normal affect and normal mood Skin Skin exam: Present warm, dry, intact and normal color Lymphatic Lymphatic Findings: no adenopathy Medical Decision Making Medical Records Medical records reviewed: No I reviewed the patient's medical records. Screening: Per USPSTF and CDC recommendations, given the prevalence of disease in our region, it is our hospital?s policy to screen for HIV and viral Hepatitis for all patients aged 18 and over and those with ongoing risk factors. Nik Inquiry Pt receiving controlled substance: No Lab Data Lab results reviewed: Yes I reviewed the patient's lab results.
[2024-05-08 17:25] LABS: UTC Strep Screen (Rapid) Negative (Negative)
[2024-05-08 17:28] VITALS: BP 120/67; PULSE 103; RESP 20; TEMP 37.2
== END 2024-05-08 17:29 | disposition home or self-care (01) ==
PROVIDERS: Emergency Provider Nurse Practitioner Family; PCP Family Medicine
DX: J01.01 Acute recurrent maxillary sinusitis (principal)
CPT/HCPCS: 87880; 99213; G0381

== ENCOUNTER 2025-02-01 09:36 | Outpatient (CLI) | payer BC, SELFPAY ==
--- OUTSIDE RECORDS SUMMARY | 2024-09-14 07:30 | XMS_ITS ---
Author Organization [facility] Address [address] [facility] [address] [place] [id number] Care Team Providers Care Branch Operations Manager Name Role Phone Tylor Cleary Primary Care Provider [phone] TYLOR CLEARY Unavailable Unavailable Allergies Allergen (clinical drug ingredient) Drug/Non Drug Allergy documented on EMR Reaction Allergy Type Onset Date Status homatropine / hydrocodone Hycodan stomach upset Drug Allergy Active acetaminophen / hydrocodone HYDROcodone-Acetam inophen stomach upset Drug Allergy Active REASON FOR VISIT Wegovy injection demo Encounters Encounter Location Date Provider Diagnosis [facility] [address] [place] [id number] 09/14/2024 Tylor Cleary Assessments Encounter Date Diagnosis (ICD Code) Assessment Notes Treatment Notes Treatment Clinical Notes Section Notes 09/14/2024 Other Demonstrated Wegovy pen use, first dose given today Plan Of Treatment Treatment Notes Assessment Notes Other Demonstrated Wegovy pen use, first dose given today Next Appt Details Provider Name:Tylor Louis ry, 03/25/2025 09:00:00 AM, [address], [address], [place], [id number], Progress Notes * [place]O [place]OB:[birth year] (59 yo F)Acc No.[id number]:09/14/2024 Progress notes Patient: JENNIFER OREILLY Provider: Wilbert Cleary M.D. :1965 A ge:58 Y S ex:Female Date:09/14/2024 Address:[address] [place] [address] RAVEN LAUREANO, DESTINEE MAGAÑ[place], [id number] Subjective: * Chief Complaints: * 1 . Wegovy injection demo. * ROS: D ERMATOLOGY: no R thien. n o H familia. G ASTROENTEROLOGY: no N ausea. n o V omiting. U ROLOGY: no D ifficulty urinating. n o B lood in urine. 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 * Allergies: H YDROcodone-Acetaminophen: stomach upset - Side Effects, Hycodan: stomach upset - Side Effects. Objective: * Vitals: Assessment: Plan: * Treatment: * Images: Billing Information: * Visit Code: * Procedure Codes: * Electronic signature of Blanca Cleary MD on 02/01/2025 at 09:41 AM EDT Sign off status: Pending * Provider: Wilbert Cleary M.D. Date: 09/14/2024 Generated for Beni grimm/Orlin/Narinder on: 02/01/2025 09:41 AM EDT
--- OUTSIDE RECORDS SUMMARY | 2024-12-18 06:45 | XMS_ITS ---
[facility] Organization [facility] Address [address] [place] [id number] Care Team Providers Care Manager Product Marketing Name Role Phone Tylor Cleary Primary Care Provider [phone] TYLOR CLEARY Unavailable Unavailable Allergies Allergen (clinical drug ingredient) Drug/Non Drug Allergy documented on EMR Reaction Allergy Type Onset Date Status homatropine / hydrocodone Hycodan stomach upset Drug Allergy Active acetaminophen / hydrocodone HYDROcodone-Acetam inophen stomach upset Drug Allergy Active REASON FOR VISIT 3 month check Medications Medication SIG (Take, Route, Frequency, Duration) Notes Start Date End Date Status dexAMETHasone 2 MG 1 tablet Orally ever y 12 hrs; Duration: 5 day(s) 09/07/2024 Not-Taking Zithromax Z-Matthew 250 MG as directed Orall y once daily; Duration: 5 day(s) 09/07/2024 Not-Taking Wegovy 0.5 MG/0.5ML 0.5 mL Subcutaneous weekly 12/18/2024 Active Xyzal Allergy 24HR 5 MG 1 tablet in the evening Orally Once a day; Duration: 90 days Active Cefdinir 300 MG 1 cap(s) Orally Two times a day; Duration: 7 days 09/02/2024 Not-Taking hydrOXYzine HCl 25 MG Take 1 tablet by m outh twice daily as needed; Duration: 15 Not-Taking Cyclobenzaprine HCl 10 MG 1 tablet at be dtime as needed Orally Once a day; Duration: 30 day(s) Not-Taking Topiramate 100 MG Take 1 tablet by twice daily for 90 days; Duration: 90 Active Levothyroxine Sodium 75 MCG TAKE 1 TABLET BY MOUTH IN THE MORNING ON AN EMPTY STOMACH; Duration: 90 days Active Metoprolol Succinate ER 100 MG Take 1 tablet by mouth once daily; Duration: 90 Active QUEtiapine Fumarate 50 MG TAKE 1 TABLET BY MOUTH ONCE DAILY IN THE EVENING; Duration: 90 days Active Xhance 93 MCG/ACT 2 sprays (1 spray in each nostril) Nasally Twice a day; Duration: 30 day(s) Active Rinvoq 15 MG 1 tablet Orally Once a day; Duration: 30 day(s) Active traMADol HCl 50 MG 1 tab(s) orally ever y 8 hours Active Fosfomycin Tromethamine 3 GM 3 grams Orally every other day 01/22/2024 Active Vitamin D-3 125 MCG (5000 UT) 1 cap(s) orally once a week 01/22/2022 Active Cymbalta 60 MG 2 cap(s) orally once a day Active Gabapentin 300 MG 1 cap(s) orally 3 times a day Active Dexlansoprazole 60 MG 1 capsule Orally O nce a day Active Famotidine 40 MG as directed Orally Active Clobetasol Propionate 0.05 % 1 application Externally Once a day; Duration: 10 day(s) Active Vital Signs Blood pressure systolic 120 mm Hg 12/19/19 25 Blood pressure diastolic 76 mm Hg 025 Heart Rate 77 /min 12/18/2024 Height 69.50 in 12/18/2024 Weight 247.7 lbs 12/18/2024 BMI 36.05 kg/m2 12/18/2024 Encounters Encounter Location Date Provider Diagnosis [facility] [address] [facility] [address] [place], [place] [id number] 12/18/2024 Tylor Cleary Seasonal allergic rhinitis, unspecified trigger J30.2 and Non morbid obesity E66.9 Assessments Encounter Date Diagnosis (ICD Code) Assessment Notes Treatment Notes Treatment Clinical Notes Section Notes 12/18/2024 Seasonal allergic rhinitis, unspecified trigger (ICD-10 - J30.2) 12/18/2024 Non morbid obesity (ICD-10 - E66.9) Plan Of Treatment Medication Medication Name Sig Start Date Stop Date Notes Wegovy 0.5 MG/0.5ML 0.5 mL Subcutaneous weekly 12/18/2024 Wegovy 0.25 MG/0.5ML INJECT 1 SYRINGE RANKIN BCUTANEOUSLY ONCE A WEEK Xyzal Allergy 24HR 5 MG 1 tablet in the evening Orally Once a day; Duration: 90 days Next Appt Details Follow Up: 3 Months fasting, Reason: Provider Name:Tylor Louis ry, 03/25/2025 09:00:00 AM, [address], [address], [place], [place], [phone], Progress Notes * JENNIFER GARCÍADOB:[birth year] (59 yo F)Acc No.[id number]:12/18/2024 Progress Notes Patient: JENNIFER OREILLY Provider: Wilbert Cleary M.D. :1965 A ge:59 Y S ex:Female Date:12/18/2024 Address:[address] [place] [address] [address], [place], [id number] Subjective: * Chief Complaints: * 1 . 3 month check. * HPI: H PI: 59 year old female presents with c/o Patient is here today for?Pt is here today for a 3 month check up on Wegovy. Pt sts she is doing well on the medication and sts she is due to have her dosage increased. * ROS: D ERMATOLOGY: no R thien. n o H familia. G ASTROENTEROLOGY: no N ausea. n o V omiting. U ROLOGY: no D ifficulty urinating. n o B lood in urine. * Medical History: M FLUE BLOWER, Childhood Asthma, Mild Mucosal Thickening, 09/23/2006, Brain MRI, [facility]/2008, Migraines, Vitamin D Deficiency, Allergic Rhinitis, Esophageal Reflux, Anxiety, Hypothyroidism, Psoriatic Arthritis, Fibromyalgia. * Surgical History: T ubal Ligation 1996, Cholecystectomy 1997, Nose 12/18/2007, colonoscopy 2018. * Hospitalization/Major Diagno stic Procedure: B ack Injury- [facility] 10/22/2010, Chest Pains- [facility] ER 01/23/2012, Leg Edema/Gastrocnemius Strain- [facility] 12/06/2012. * Family History: F ather: alive. M other: alive. P aternal Grand Father: . P aternal Grand Mother: . M aternal Grand Father: . M aternal Grand Mother: . 2 brother(s) , 2 sister(s) - healthy. 2 daughter(s) - healthy. . * Social History: C URRENT TOBACCO USE S moking Status: Patient does NOT smoke. C affeine: yes, frequency:DAILY. Exercise: no. Home smoke detector use: yes. Marital Status: . 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 Past smoking status: no. Recreational drug use: no. Alcohol: no. Sexually active: yes. Travel ouside [place]: no. * Medications: T aking Clobetasol Propionate 0.05 % Shampoo 1 application Externally Once a day , Taking Famotidine 40 MG Tablet as directed Orally , Taking Fosfomycin Tromethamine 3 GM Packet 3 grams Orally every other day , Taking Dexlansoprazole 60 MG Capsule Delayed Release 1 capsule Orally Once a day , Taking Gabapentin 300 MG Capsule 1 cap(s) orally 3 times a day , Taking Cymbalta 60 MG Capsule Delayed Release Particles 2 cap(s) orally once a day , Taking Vitamin D-3 125 MCG (5000 UT) Tablet 1 cap(s) orally once a week , Taking traMADol HCl 50 MG Tablet 1 tab(s) orally every 8 hours , Taking Rinvoq 15 MG Tablet Extended Release 24 Hour 1 tablet Orally Once a day , Taking Xyzal Allergy 24HR 5 MG Tablet 1 tablet in the evening Orally Once a day , Taking Xhance 93 MCG/ACT Exhaler Suspension 2 sprays (1 spray in each nostril) Nasally Twice a day , Taking QUEtiapine Fumarate 50 MG Tablet TAKE 1 TABLET BY MOUTH ONCE DAILY IN THE EVENING , Taking Metoprolol Succinate ER 100 MG Tablet Extended Release 24 Hour Take 1 tablet by mouth once daily , Taking Wegovy 0.25 MG/0.5ML Solution Auto-injector INJECT 1 SYRINGE SUBCUTANEOUSLY ONCE A WEEK , Taking Levothyroxine Sodium 75 MCG Tablet TAKE 1 TABLET BY MOUTH IN THE MORNING ON AN EMPTY STOMACH , Taking Topiramate 100 MG Tablet Take 1 tablet by mouth twice daily for 90 days , Not-Taking Cyclobenzaprine HCl 10 MG Tablet 1 tablet at bedtime as needed Orally Once a day , Not-Taking hydrOXYzine HCl 25 MG Tablet Take 1 tablet by mouth twice daily as needed , Not-Taking Cefdinir 300 MG Capsule 1 cap(s) Orally Two times a day , Not-Taking Zithromax Z-Matthew 250 MG Tablet as directed Orally once daily , Not-Taking dexAMETHasone 2 MG Tablet 1 tablet Orally every 12 hrs , Medication List reviewed and reconciled with the patient * Allergies: H YDROcodone-Acetaminophen: stomach upset - Side Effects, Hycodan: stomach upset - Side Effects. Objective: * Vitals: W t: 247.7, Temp: 98.3, BP: 120/76, HR: 77, [facility] Ht: 69.50, BMI:36.05. * Examination: G eneral Examination: General Appearance: N AD, weight loss noted. H eart:?RSR. L ungs: c lear to auscultation. Assessment: * Assessment: 1. S easonal allergic rhinitis, unspecified trigger - J30.2 (Primary) 2 . N on morbid obesity - E66.9 Plan: * Treatment: 2. N on morbid obesity Stop Wegovy Solution Auto-injector, 0.25 MG/0.5ML, INJECT 1 SYRINGE SUBCUTANEOUSLY ONCE A WEEK;?Start Wegovy Solution Auto-injector, 0.5 MG/0.5ML, 0.5 mL, Subcutaneous, weekly, 2 mL, Refills 0.? * Procedure Codes: 1 036F TOBACCO NON-USER, G8783 BP SCR PRFRM RCMDD DEFIND SCR INTVL, G8752 MOST RECENT SYSTOLIC BP < 140MM HG, G8754 MOST RECENT DIASTOLIC BP < 90MM HG * Follow Up: 3 Months fasting * Images: Billing Information: * Visit Code: 84295 Office Visit, Est Pt., Level 3. * Procedure Codes: 1036F TOBACCO NON-USER. G8783 BP SCR PRFRM RCMDD DEFIND SCR INTVL. G8752 MOST RECENT SYSTOLIC BP < 140MM HG. G8754 MOST RECENT DIASTOLIC BP < 90MM HG. * Electronic signature of Blanca Cleary MD on 02/01/2025 at 09:41 AM EDT Sign off status: Pending * Provider: Wilbert Cleary M.D. Date: 0 12/18/2024 Generated for Beni grimm/Orlin/eTransmitting on: 0 02/01/2025 09:41 AM EDT History and Physical Notes * HPI (History of Present Illness) Category Sub-Category Detail Notes Category Not es HPI Patient is here today for Pt is here today for a 3 month check up on Wegovy. Pt sts she is doing well on the medication and sts she is due to have her dosage increased Examination Category Sub-Category Detail Notes Category Not es General Examination Heart: RSR Lungs: clear to auscultatio n General Appearance: NAD, weight loss not ed
--- OUTSIDE RECORDS SUMMARY | 2024-12-28 11:55 | XMS_ITS ---
Author Organization [facility] Address [address] [facility] [address] [place] [id number] Care Team Providers Care Printing Technician Name Role Phone Tylor Cleary Primary Care Provider TYLOR CLEARY Unavailable Unavailable REASON FOR VISIT due mamm, colonoscopy Encounters Encounter Location Date Provider Diagnosis [facility] [address] [facility] [address] [place] [id number] 12/28/2024 Tylor Cleary Screening for colon cancer Z12.11 and Screening for breast cancer Z12.39 Assessments Encounter Date Diagnosis (ICD Code) Assessment Notes Treatment Notes Treatment Clinical Notes Section Notes 12/28/2024 Screening for colon cancer (ICD-10 - Z12.11) 12/28/2024 Screening for breast cancer (ICD-10 - Z12.39) Plan Of Treatment Pending Test Test Name Order Date colonoscopy 12/28/2024 Mammogram 12/28/2024 Next Appt Details Provider Name:Tylor Louis ry, 03/25/2025 09:00:00 AM, [address], [address], [place], [id number], Progress Notes * JENNIFER GARCÍADOB:[birth year] (59 yo F)Acc No.[id number]:12/28/2024 Patient: JENNIFER OREILLY :1965 A ge:59 Y S ex:Female Address:[address], [place] [address] Subjective: * Chief Complaints: * D ue mamm, colonoscopy * Medical History: * Surgical History: * Hospitalization/Major Diagno stic Procedure: * Medications: Objective: * Vitals: * Physical Examination: Assessment: * Assessment: 1. S creening for colon cancer - Z12.11 (Primary) 2 . S creening for breast cancer - Z12.39 Plan: * Treatment: 2.?Screening for breast cancer?Imaging: Mammogram* Due after 01/29/2025 - [facility] * Procedure Codes: * true * Date: Generated for Beni grimm/Orlin/eTransmitting on: 0 02/01/2025 09:42 AM EDT
--- NOTE | 2025-02-01 09:39 | MM_ITS ---
PROCEDURE INFORMATION: Exam: MG Bilateral Screening 3D Mammography Exam date and time: 02/01/2025 9:59 AM Age: 59 years old Clinical indication: Screening examination TECHNIQUE: Imaging protocol: Bilateral Screening tomosynthesis and 2D mammography including computer-aided detection (CAD) when performed. COMPARISON: 1. MG MM DIG SCREENING MAMM BI W/CAD 01/30/2024 8:34 AM 2. MG MAMMO SCREENING DIGITAL TOMOSYNTHESIS BILATERAL W CAD 12/15/2019 8:51 AM FINDINGS: MAMMOGRAPHY: Breast composition: The breasts are heterogeneously dense, which may obscure small masses. Mass: No suspicious masses. Architectural distortion: None. Calcifications: No suspicious calcifications. Asymmetric density: None. Skin thickening: None. Axillary adenopathy: None. IMPRESSION: No mammographic evidence of malignancy. Annual screening is recommended unless otherwise clinically indicated. ASSESSMENT: BI-RADS Category 1: Negative.
--- OUTSIDE RECORDS SUMMARY | 2025-02-01 09:42 | XMS_ITS | Clinical Summary ---
[facility] Organization [facility] Address [address] [place] [address] Care Team Providers Care Physician Asst Name Role Phone Abel Cleary MD Primary Care Provider [phone] Family History Medical History Relation Name Comments Breast cancer Neg Hx Ovarian cancer Neg Hx Social History Tobacco Use Types Packs/Day Years Used Date Smoking Tobacco: Never Assessed Abuse Screen Answer Date Recorded Unsafe at Home or Work/School Not on file Feels Threatened by Someone? Not on file 03/2023 Does Anyone Keep You from Co ntacting Others or Doint Things Outside the Home? Not on file 04/22/2023 Physical Sign of Abuse Present Not on file 1 Housing Stability Answer Date Recorded Current Living Arrangements Not on file 03/2023 Potentially Unsafe Housing Conditions Not on mary e 04/22/2023 Family and Community Support Answer Otoniel e Recorded Help with Day-to-Day Activities Not on file 04/22/2023 Lonely or Isolated Not on file 04/22/2023 Employment Answer Date Recorded Do you want help finding or keeping work or a lucy b? Not on file 04/22/2023 Disabilities Answer Date Recorded Concentrating, Remembering, or Making Decisions Difficulty Not on file 04/22/2023 Doing Errands Independently Difficulty Not on fi le 04/22/2023 Education Answer Date Recorded Help with school or training? Not on file Preferred Language Not on file 04/22/2023 Comments No Sex and Gender Information Value Date Recorded Sex Assigned at Not on file Legal Sex Female 11:16 AM EDT Gender Identity Not on file Sexual Orientation Not on file Plan of Treatment Health Maintenance Due Date Last Done Comments ANNUAL PHYSICAL 1965 Annual Gynecologic Pelvic and Breast Exam 1965 HEPATITIS C SCREENING 1965 TDAP/TD VACCINES (1 - Tdap) 11/26/1986 COLOGUARD 11/26/2012 COLON CANCER SCREENING 5 YEAR SIGMOIDOSCOPY 11/26/2012 COLONOSCOPY 11/26/2012 COLORECTAL CANCER SCREENING 11/26/2012 CT COLONOGRAPHY 11/26/2012 FECAL OCCULT BLOOD TEST 11/26/2012 FIT Testing (1 year) 11/26/2012 Pneumococcal Vaccine 50+ (1 of 1 - PCV) 11/26/2017 ZOSTER VACCINE (1 of 2) 11/26/2017 MAMMOGRAM 12/14/2021 12/15/2019 COVID-19 Vaccine (1 - 2023- season) 2024 INFLUENZA VACCINE 04/14/2025 Procedures Procedure Name Priority Date/Time Associated Diagnosis Comments MAMMO SCREENING DIGITAL TOMOSYNTHESIS BILATERAL W CAD Routine 12/15/2019 8:44 AM EDT Visit for screening mammogram from Last 3 Months or Most Recently Relevant to Health Maintenance Results * Mammo Screening Digital Tomosynthesis Bilateral With CAD (12/15/2019 8:44 AM EDT) Anatomical Region Laterality Modality Breast N/A Mammography 12/16/2019 3:39 PM EDT Impressions 12/17/2019 8:50 AM EDT No findings suspicious for malignancy. ACR BI-RADS CATEGORY: 1, NEGATIVE. RECOMMENDATION: Yearly mammogram, yearly clinical breast exam, and encourage self breast awareness. CAD was used. The standard false negative rate of mammography is between 10% and 25%. Complex patterns or increased breast density will markedly elevate the false negative rate of mammography. A letter, in lay terminology, with the results of this exam will be mailed to the patient. At our facility, a triangular marker is positioned over a palpable area of concern indicated by the patient. A burns paiute marker is placed over a visible skin lesion. A linear marker indicates a scar. If there is a palpable area of concern, biopsy should be considered regardless of imaging findings. This report was finalized on 12/17/2019 8:[address] Amanda Kay MD. Narrative 12/17/2019 8:50 AM EDT ROUTINE DIGITAL SCREENING MAMMOGRAM WITH TOMOSYNTHESIS: HISTORY: Routine screening. IMAGE COMPARISON: 12/07/2011, 11/28/2011. TECHNIQUE: Low dose full field digital breast tomosynthesis imaging was performed with 2D and 3D acquisitions consisting of bilateral CC and MLO views. FINDINGS: The breasts are heterogeneously dense, which may obscure small masses. The fibroglandular pattern appears stable. There is no mass, worrisome microcalcifications, or architectural distortion to suggest development of malignancy. Abel Cleary MD IMG MAMMOGRAPHY ORDERABLES F inal Result from Last 3 Months or Most Recently Relevant to Health Maintenance Insurance [facility] PPO Care Teams Physician Asst Relationship Specialty Start Date End Date Abel Cleary MD [address] [facility] [address] [place] [id number] PCP - General Family Medicine 10/05/19
--- OUTSIDE RECORDS SUMMARY | 2025-02-01 09:42 | XMS_ITS | Data Portability ---
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 Plan of Treatment Reminders Order Date Submit Date Provider Last Modified By Organization Details Last Modified Time Details Appointments RHEUM RECHECK 2024 04:00P Gilma BECKMAN MD Not available Not available Not available Lab lipid panel, serum 2024 025 [facility], [address] [place] [address], [id number], 10/07/2024 11:22:24 CBC w/ auto diff 2024 025 [facility], [address] [place] [address], [address], 10/07/2024 10:42:46 creatini ne, serum or plasma 2024 025 [facility], [address] [place] [address], [address], 10/07/2024 11:22:21 ALT (alanine aminotra nsferase ), serum or plasma 2024 025 [facility], [address] [place] [address], [address], 10/07/2024 11:22:16 AST/SGOT (asparta te aminotra nsferase ), serum or plasma 2024 025 [facility], [address] [place] [address], [address], 10/07/2024 11:22:23 GFR, estimate d (eGFR), serum 2024 025 [facility], [address] [place] [address], [address], 10/07/2024 11:22:18 CBC w/ auto diff 2023 024 [facility], [address] [place] [address], [address], 06/03/2024 11:49:26 creatini ne, serum or plasma 2023 024 [facility], [address] [place] [address], [address], 06/03/2024 12:17:30 ALT (alanine aminotra nsferase ), serum or plasma 2023 024 [facility], [address] [place] [address], [address], 06/03/2024 12:17:33 AST/SGOT (asparta te aminotra nsferase ), serum or plasma 2023 024 [facility], [address] [place] [address], [address], 06/03/2024 12:17:28 GFR, estimate d (eGFR), serum 2023 024 [facility], [address] [place] [address], [address], 06/03/2024 12:17:35 CBC w/ auto diff 2023 024 [facility], [address] [place] [address], [address], 03/02/2024 14:04:45 creatini ne, serum or plasma 2023 024 [facility], [address] [place] [address], [address], 03/02/2024 14:17:01 ALT (alanine aminotra nsferase ), serum or plasma 2023 024 [facility], [address] [place] [address], [address], 03/02/2024 14:16:57 AST/SGOT (asparta te aminotra nsferase ), serum or plasma 2023 024 [facility], [address] [place] [address], [address], 03/02/2024 14:16:59 GFR, estimate d (eGFR), serum 2023 024 [email or web address] [facility], [address] [place] [address], [address], 03/09/2024 08:07:22 CBC w/ auto diff 2023 024 [facility], [address] [place] [address], [address], 2023 11:36:13 CMP, serum or plasma 2023 024 [facility], [address] [place] [address], [address], 2023 12:32:34 T4, free, serum 2023 024 [facility], [address] [place] [address], [address], 2023 12:32:36 T3, free, serum or plasma 2023 024 [facility], [address] [place] [address], [address], 2023 12:32:38 TSH, serum or plasma 2023 024 [facility], [address] [place] [address], [address], 2023 12:32:40 thyroid panel, serum 2023 024 [facility], [address] [place] [address], [address], 11/28/2023 15:41:09 Mycobact erium tubercul osis stimulat ed gamma interfer on, qual, blood 2023 024 [facility], [address] [place] [address], [address], 12/02/2023 09:45:35 ldh, serum or plasma 2023 024 [facility], [address] [place] [address], [address], 2023 12:10:52 ESR (erythro cyte sediment ation rate), blood 2023 024 [facility], [address] [place] [address], [address], 2023 12:57:13 CBC w/ auto diff 2023 024 [facility], [address] [place] [address], [address], 08/28/2023 10:01:30 creatini ne, serum or plasma 2023 024 [facility], [address] [place] [address], [address], 08/28/2023 10:41:14 ALT (alanine aminotra nsferase ), serum or plasma 2023 024 [facility], [address] [place] [address], [address], 08/28/2023 10:41:10 AST/SGOT (asparta te aminotra nsferase ), serum or plasma 2023 024 [facility], [address] [place], [address], 08/28/2023 10:41:12 Referral None recorded . Procedures None recorded . Surgeries None recorded . Imaging None recorded . Medication Orders Cymbalta 60 mg capsule, delayed release 2024 025 [facility], [address], [address], 10/07/2024 09:41:37 Neuronti n 300 mg capsule 2024 025 [facility], [address], [address], 10/07/2024 09:41:38 tramadol 50 mg tablet 2024 025 [facility], [address], [address], 10/07/2024 09:41:35 Rinvoq 15 mg tablet,e xtended release 2024 025 [facility], [address] [place] [address], [address], 10/07/2024 09:41:28 cycloben zaprine 10 mg tablet 2024 025 [facility], [address], [address], 10/07/2024 09:41:33 Voltaren Arthriti s Pain 1 % topical gel 2024 025 [facility], [address], [address], 10/07/2024 09:41:36 ketocona zole 2 % shampoo 2024 025 [facility], [address], [address], 10/07/2024 09:41:32 Cymbalta 60 mg capsule, delayed release 2023 024 [facility], [address], [address], 06/03/2024 10:43:16 Neuronti n 300 mg capsule 2023 024 [facility], [address], [address], 06/03/2024 10:43:20 tramadol 50 mg tablet 2023 024 [facility], [address], [address], 06/03/2024 10:43:19 Rinvoq 15 mg tablet,e xtended release 2023 024 [facility], [address] [address], [address], 06/03/2024 10:42:41 cycloben zaprine 10 mg tablet 2023 024 [facility], [address], [address], 06/03/2024 10:43:11 Voltaren Arthriti s Pain 1 % topical gel 2023 024 [facility], [address], [address], 06/03/2024 10:43:10 ketocona zole 2 % shampoo 2023 024 [facility], [address], [address], 06/03/2024 10:43:09 Cymbalta 60 mg capsule, delayed release 2023 024 [facility], [address], [address], 03/02/2024 13:22:02 Neuronti n 300 mg capsule 2023 024 [facility], [address], [address], 03/02/2024 13:22:01 tramadol 50 mg tablet 2023 024 [facility], [address], [address], 03/02/2024 13:22:02 Rinvoq 15 mg tablet,e xtended release 2023 024 [facility], [address] [place] [address], [address], 03/02/2024 13:21:55 cycloben zaprine 10 mg tablet 2023 024 [facility], [address], [address], 03/02/2024 13:22:00 Voltaren Arthriti s Pain 1 % topical gel 2023 024 [facility], [address], [address], 03/02/2024 13:22:01 ketocona zole 2 % shampoo 2023 024 [facility], [address], [address], 03/02/2024 13:22:01 Cymbalta 60 mg capsule, delayed release 2023 024 [facility], [address], [place], [address], 2023 10:37:54 Neuronti n 300 mg capsule 2023 024 [facility], [address], [place], [address], 2023 10:38:00 tramadol 50 mg tablet 2023 024 [facility], [address], [place], [address], 2023 10:37:59 Rinvoq 15 mg tablet,e xtended release 2023 024 [facility], [facility] [place], [address], 2023 10:37:51 cycloben zaprine 10 mg tablet 2023 024 [facility], [address], [place], [address], 2023 10:37:55 Voltaren Arthriti s Pain 1 % topical gel 2023 024 [facility], [address], [place], [address], 2023 10:37:54 ketocona zole 2 % shampoo 2023 024 [facility], [address], [place], [address], 2023 10:37:55 ketocona zole 2 % shampoo 2023 024 [facility], [address], [place], [address], 08/28/2023 09:32:58 tramadol 50 mg tablet 2023 024 [facility], [address], [address], 08/28/2023 09:33:04 Cymbalta 60 mg capsule, delayed release 2023 024 [facility], [address], [address], 08/28/2023 09:32:59 Neuronti n 300 mg capsule 2023 024 [facility], [address], [address], 08/28/2023 09:33:06 Rinvoq 15 mg tablet,e xtended release 2023 024 [facility], [address] [place] [address], [address], 08/28/2023 09:32:51 cycloben zaprine 10 mg tablet 2023 024 [facility], [address], [address], 08/28/2023 09:32:57 Voltaren Arthriti s Pain 1 % topical gel 2023 024 [facility], [address], [address], 08/28/2023 09:32:59 Patient TargetsNo targets recorded. Patient InstructionsNo instructions recorded. Reason for Referral None Reported. Results Created Date Observation Date Name Description Value Unit Range Abnormal Flag Note LastModifiedBy Organization Detail LastModifiedTime 08/28/19 24 08/28/2023 COMPL ETE BLOOD COUNT white blood cells 7.9 10*3/ uL 3.8-10 .8 normal Not Available [facility] [address] [place], [address], 08/28/2023 10:01:30 08/28/19 24 08/28/2023 COMPL ETE BLOOD COUNT red blood cells 4.61 10*6/ uL 3.80-5 .20 normal Not Available [facility] [address] [place] [address], [address], 08/28/2023 10:01:30 08/28/19 24 08/28/2023 COMPL ETE BLOOD COUNT hemoglobin 13.6 g/dL 12.0-1 6.0 normal Not Available [facility] [address] [place] [address], [address], 08/28/2023 10:01:30 08/28/19 24 08/28/2023 COMPL ETE BLOOD COUNT hematocrit 41.0 % 35.0-4 7.0 normal Not Available [facility] [address] [place] [address], [address], 08/28/2023 10:01:30 08/28/19 24 08/28/2023 COMPL ETE BLOOD COUNT MCV 89 fL 80-100 normal Not Available [facility] [address] [place] [address], [address], 08/28/2023 10:01:30 08/28/19 24 08/28/2023 COMPL ETE BLOOD COUNT MCH 30 pg 26-35 normal Not Available [facility] [address] [place] [address], [address], 08/28/2023 10:01:30 08/28/19 24 08/28/2023 COMPL ETE BLOOD COUNT MCHC 33 g/dL 32-36 normal Not Available [facility] [address] [place] [address], [address], 08/28/2023 10:01:30 08/28/19 24 08/28/2023 COMPL ETE BLOOD COUNT RDW 16.0 % 11.0-1 5.0 high Not Available [facility] [address] [place] [address], [address], 08/28/2023 10:01:30 08/28/19 24 08/28/2023 COMPL ETE BLOOD COUNT MPV 7.6 fL 6.2-10 .5 normal Not Available [facility] [address] [place] [address], [address], 08/28/2023 10:01:30 08/28/19 24 08/28/2023 COMPL ETE BLOOD COUNT platelet count 253 10*3/ uL 150-40 0 normal Not Available [facility] [address] [place] [address], [address], 08/28/2023 10:01:30 08/28/19 24 08/28/2023 COMPL ETE BLOOD COUNT neutrophil,a bsolute 5.7 10*3/ uL 1.6-8. 4 normal Not Available [facility] [address] [place] [address], [address], 08/28/2023 10:01:30 08/28/19 24 08/28/2023 COMPL ETE BLOOD COUNT lymphocyte,a bsolute 1.4 10*3/ uL 0.4-5. 1 normal Not Available [facility] [address] [place] [address], [address], 08/28/2023 10:01:30 08/28/19 24 08/28/2023 COMPL ETE BLOOD COUNT monocyte,abs olute 0.7 10*3/ uL 0.0-1. 2 normal Not Available [facility] [address] [place] [address], [address], 08/28/2023 10:01:30 08/28/19 24 08/28/2023 COMPL ETE BLOOD COUNT eosinophil,a bsolute 0.1 10*3/ uL 0.0-0. 8 normal Not Available [facility] [address] [place] [address], [address], 08/28/2023 10:01:30 08/28/19 24 08/28/2023 COMPL ETE BLOOD COUNT basophil,abs olute 0.0 10*3/ uL 0.0-0. 3 normal Not Available [facility] [address] [place] [address], [address], 08/28/2023 10:01:30 08/28/19 24 08/28/2023 COMPL ETE BLOOD COUNT % neutrophils 72.6 % 42.0-7 8.0 normal Not Available [facility] [address] [place] [address], [address], 08/28/2023 10:01:30 08/28/19 24 08/28/2023 COMPL ETE BLOOD COUNT % lymphocytes 17.5 % 11.0-4 7.0 normal Not Available [facility] [address] [place] [address], [address], 08/28/2023 10:01:30 08/28/19 24 08/28/2023 COMPL ETE BLOOD COUNT % monocytes 8.3 % 0.0-11 .0 normal Not Available [facility] [address] [place] [address], [address], 08/28/2023 10:01:30 08/28/19 24 08/28/2023 COMPL ETE BLOOD COUNT % eosinophils 1.3 % 0.0-7. 0 normal Not Available [facility] [address] [place] [address], [address], 08/28/2023 10:01:30 08/28/19 24 08/28/2023 COMPL ETE BLOOD COUNT % basophils 0.3 % 0.0-3. 0 normal Not Available [facility] [address] [place] [address], [address], 08/28/2023 10:01:30 08/28/19 24 08/28/2023 COMPL ETE BLOOD COUNT nucleated red cells 0.0 % 0.0-0. 9 normal Not Available [facility] [address] [place] [address], [address], 08/28/2023 10:01:30 08/28/19 24 08/28/2023 COMPL ETE BLOOD COUNT nucleated RBCs, absolute 0.00 10*3/ uL not estab. normal Not Available [facility] [address] [place] [address], [address], 08/28/2023 10:01:30 08/28/19 24 08/28/2023 ALT ALT 31 U/L 0-33 normal Not Available [facility] [address] [place] [address], [address], 08/28/2023 10:41:09 08/28/19 24 08/28/2023 AST AST 25 U/L 0-32 normal Not Available [facility] [address] [place] [address], [address], 08/28/2023 10:41:12 08/28/19 24 08/28/2023 CREAT ININE creatinine 0.83 mg/dL 0.50-0 .95 normal Not Available [facility] [address] [place] [address], [address], 08/28/2023 10:41:14 08/28/19 24 08/31/2023 QUANT IFERO N TB GOLD qtb gold NEGATI VE negati ve normal Negat yoli test resul t. M. tuber culos is compl ex infec tion unlik sami. Not Available [facility] [address] [place] [address], [address], 08/31/2023 10:57:04 08/28/19 24 08/31/2023 QUANT IFERO N TB GOLD nil 0.03 IU/mL normal Not Available [facility] [address] [place] [address], [address], 08/31/2023 10:57:04 08/28/19 24 08/31/2023 QUANT IFERO N TB GOLD mitogen nil 9.58 IU/mL normal Not Available [facility] [address] [place] [address], [address], 08/31/2023 10:57:04 08/28/19 24 08/31/2023 QUANT IFERO N TB GOLD TB1 nil 0.01 IU/mL normal Not Available [facility] [place], [address], 08/31/2023 10:57:04 08/28/19 24 08/31/2023 QUANT IFERO N TB GOLD TB2 nil 0.00 IU/mL normal The Nil tube value refle cts the backg round inter feron gamma immun e respo nse of the patie nt's blood sampl e. This value has been subtr acted from the patie nt's displ ayed TB and Mitog en resul ts. Lower than expec david resul ts with the Mitog en tube preve nt false -nega tive Quant ifero n readi ngs by detec ting a patie nt with a poten tial immun e suppr essiv e condi tion and/o r subop timal pre-a nalyt ical speci men handl ing. The TB1 Antig en tube is coate d with the M. tuber culos is-sp ecifi c antig ens desig maryam to elici t respo nses from TB antig en prime d CD4+ helpe r T-lym phocy chrissy. The TB2 Antig en tube is coate d with the M. tuber culos is-sp ecifi c antig ens desig maryam to elici t respo nses from TB antig en prime d CD4+ helpe r and CD8+ cytot oxic T-lym phocy chrissy. For addit ional infor nikunj perez e refer to https ://nilo wanati on.qu louise [employer] com/f aq/FA Q204 (This link is being provi ded for infor nicolás prasad/ educeveylne alcantara l purpo ses only. ) Not Available [facility] [address] [place], [address], 08/31/2023 10:57:04 11/27/19 24 2023 COMPL ETE BLOOD COUNT white blood cells 9.3 10*3/ uL 3.8-10 .8 normal Not Available [facility] [address] [place] [address], [address], 2023 11:36:13 11/27/19 24 2023 COMPL ETE BLOOD COUNT red blood cells 4.40 10*6/ uL 3.80-5 .20 normal Not Available [facility] [address] [place] [address], [address], 2023 11:36:13 11/27/19 24 2023 COMPL ETE BLOOD COUNT hemoglobin 13.6 g/dL 12.0-1 6.0 normal Not Available [facility] [address] [place] [address], [address], 2023 11:36:13 11/27/19 24 2023 COMPL ETE BLOOD COUNT hematocrit 39.6 % 35.0-4 7.0 normal Not Available [facility] [address] [place] [address], [address], 2023 11:36:13 11/27/19 24 2023 COMPL ETE BLOOD COUNT MCV 90 fL 80-100 normal Not Available [facility] [address] [place] [address], [address], 2023 11:36:13 11/27/19 24 2023 COMPL ETE BLOOD COUNT MCH 31 pg 26-35 normal Not Available [facility] [address] [place] [address], [address], 2023 11:36:13 11/27/19 24 2023 COMPL ETE BLOOD COUNT MCHC 34 g/dL 32-36 normal Not Available [facility] [address] [place] [address], [address], 2023 11:36:13 11/27/19 24 2023 COMPL ETE BLOOD COUNT RDW 13.7 % 11.0-1 5.0 normal Not Available [facility] [address] [place] [address], [address], 2023 11:36:13 11/27/19 24 2023 COMPL ETE BLOOD COUNT MPV 8.3 fL 6.2-10 .5 normal Not Available [facility] [address] [place] [address], [address], 2023 11:36:13 11/27/19 24 2023 COMPL ETE BLOOD COUNT platelet count 265 10*3/ uL 150-40 0 normal Not Available [facility] [address] [place] [address], [address], 2023 11:36:13 11/27/19 24 2023 COMPL ETE BLOOD COUNT neutrophil,a bsolute 6.7 10*3/ uL 1.6-8. 4 normal Not Available [facility] [address] [place] [address], [address], 2023 11:36:13 11/27/19 24 2023 COMPL ETE BLOOD COUNT lymphocyte,a bsolute 1.8 10*3/ uL 0.4-5. 1 normal Not Available [facility] [address] [place] [address], [address], 2023 11:36:13 11/27/19 24 2023 COMPL ETE BLOOD COUNT monocyte,abs olute 0.7 10*3/ uL 0.0-1. 2 normal Not Available [facility] [address] [place] [address], [address], 2023 11:36:13 11/27/19 24 2023 COMPL ETE BLOOD COUNT eosinophil,a bsolute 0.1 10*3/ uL 0.0-0. 8 normal Not Available [facility] [address] [place] [address], [address], 2023 11:36:13 11/27/19 24 2023 COMPL ETE BLOOD COUNT basophil,abs olute 0.0 10*3/ uL 0.0-0. 3 normal Not Available [facility] [address] [place] [address], [address], 2023 11:36:13 11/27/19 24 2023 COMPL ETE BLOOD COUNT % neutrophils 71.8 % 42.0-7 8.0 normal Not Available [facility] [address] [place] [address], [address], 2023 11:36:13 11/27/19 24 2023 COMPL ETE BLOOD COUNT % lymphocytes 19.3 % 11.0-4 7.0 normal Not Available [facility] [address] [place] [address], [address], 2023 11:36:13 11/27/19 24 2023 COMPL ETE BLOOD COUNT % monocytes 7.3 % 0.0-11 .0 normal Not Available [facility] [address] [place] [address], [address], 2023 11:36:13 11/27/19 24 2023 COMPL ETE BLOOD COUNT % eosinophils 1.3 % 0.0-7. 0 normal Not Available [facility] [address] [place] [address], [address], 2023 11:36:13 11/27/19 24 2023 COMPL ETE BLOOD COUNT % basophils 0.3 % 0.0-3. 0 normal Not Available [facility] [address] [place] [address], [address], 2023 11:36:13 11/27/19 24 2023 COMPL ETE BLOOD COUNT nucleated red cells 0.0 % 0.0-0. 9 normal Not Available [facility] [address] [place] [address], [address], 2023 11:36:13 11/27/19 24 2023 COMPL ETE BLOOD COUNT nucleated RBCs, absolute 0.00 10*3/ uL not estab. normal Not Available [facility] [address] [place] [address], [address], 2023 11:36:13 11/27/19 24 2023 LDH LDH 161 U/L 135-23 3 normal Not Available [facility] [address] [place] [address], [address], 2023 12:10:52 11/27/19 24 2023 COMP. METAB OLIC PANEL glucose 103 mg/dL 74-100 high Not Available [facility] [address] [place] [address], [address], 2023 12:32:34 11/27/19 24 2023 COMP. METAB OLIC PANEL blood urea nitrogen 6 mg/dL 6-20 normal Not Available [facility] [address] [place] [address], [address], 2023 12:32:34 11/27/19 24 2023 COMP. METAB OLIC PANEL creatinine 0.79 mg/dL 0.50-0 .95 normal Not Available [facility] [address] [place] [address], [address], 2023 12:32:34 11/27/19 24 2023 COMP. METAB OLIC PANEL BUN/creatini ne ratio 8 (calc ) 10-20 low Not Available [facility] [address] [place] [address], [address], 2023 12:32:34 11/27/19 24 2023 COMP. METAB OLIC PANEL sodium 142 mmol/ L 136-14 5 normal Not Available [facility] [address] [place] [address], [address], 2023 12:32:34 11/27/19 24 2023 COMP. METAB OLIC PANEL potassium 3.8 mmol/ L 3.4-5. 0 normal Not Available [facility] [address] [place] [address], [address], 2023 12:32:34 11/27/19 24 2023 COMP. METAB OLIC PANEL chloride 109 mmol/ L 98-107 high Not Available [facility] [address] [place] [address], [address], 2023 12:32:34 11/27/19 24 2023 COMP. METAB OLIC PANEL carbon dioxide 23 mmol/ L 22-31 normal Not Available [facility] [address] [place] [address], [address], 2023 12:32:34 11/27/19 24 2023 COMP. METAB OLIC PANEL anion gap 10 (calc ) 7-25 normal Not Available [facility] [address] [place] [address], [address], 2023 12:32:34 11/27/19 24 2023 COMP. METAB OLIC PANEL calcium 9.1 mg/dL 8.6-10 .2 normal Not Available [facility] [address] [place] [address], [address], 2023 12:32:34 11/27/19 24 2023 COMP. METAB OLIC PANEL total protein 7.2 g/dL 6.4-8. 3 normal Not Available [facility] [address] [place] [address], [address], 2023 12:32:34 11/27/19 24 2023 COMP. METAB OLIC PANEL albumin 4.1 g/dL 3.5-5. 2 normal Not Available [facility] Laboratory [address] [place] [address], [address], 2023 12:32:34 11/27/19 24 2023 COMP. METAB OLIC PANEL globulin 3.1 1.5-4. 5 normal Not Available [facility] [address] [place] [address], [address], 2023 12:32:34 11/27/19 24 2023 COMP. METAB OLIC PANEL albumin/glob ulin ratio 1.3 (calc ) 1.1-2. 5 normal Not Available [facility] [address] [place] [address], [address], 2023 12:32:34 11/27/19 24 2023 COMP. METAB OLIC PANEL bilirubin, total 0.3 mg/dL 0.1-1. 2 normal Not Available [facility] [address] [place] [address], [address], 2023 12:32:34 11/27/19 24 2023 COMP. METAB OLIC PANEL alkaline phosphatase 90 U/L 30-121 normal Not Available [facility] [address] [place] [address], [address], 2023 12:32:34 11/27/19 24 2023 COMP. METAB OLIC PANEL AST 28 U/L 0-32 normal Not Available [facility] [address] [place] [address], [address], 2023 12:32:34 11/27/19 24 2023 COMP. METAB OLIC PANEL ALT 41 U/L 0-33 high Not Available [facility] [address] [place] [address], [address], 2023 12:32:34 11/27/19 24 2023 COMP. METAB OLIC PANEL GFR 88 >= 60 normal NOT E New calcu latio n for GFR (CKD- EPI 2020) is formu lated witho ut race adjus tment facto rs at the recom menda tion of the [facility] Found atla and Alan daryn Akins ty of Nephr ology . This calcu latio n has not been valid ated in pregn ant women . For pedia tric patie nts refer to https ://bo henderson.demetrio meadows.o rg/pr ofess ional s/KDO QI/gf r_cal culat orPed Not Available [facility] [address] [place] [address], [address], 2023 12:32:34 11/27/19 24 2023 T4,FR EE T4,free 0.78 NG/dL 0.93-1 .70 low Not Available [facility] [address] [place] [address], [address], 2023 12:32:36 11/27/19 24 2023 T3 FREE T3 free 2.27 pg/mL 2.00-4 .40 normal Not Available [facility] [address] [place] [address], [address], 2023 12:32:38 11/27/19 24 2023 TSH TSH 2.120 u[IU] /mL 0.270- 4.200 normal Not Available [facility] [address] [place] [address], [address], 2023 12:32:40 11/27/19 24 2023 ESR, AUTOM ATED ESR, automated 8 mm 0-29 normal Not Available [facility] [address] [place] [address], [address], 2023 12:57:12 11/27/19 24 11/28/2023 THYRO ID ANTIB ODIES PANEL thyroid peroxidase Ab <1 IU/mL <9 normal Not Available [facility] [address] [place] [address], [address], 11/28/2023 15:41:09 11/27/19 24 11/28/2023 THYRO ID ANTIB ODIES PANEL thyroglobuli n Ab <1 IU/mL < or = 1 normal Not Available [facility] [address] [place] [address], [address], 11/28/2023 15:41:09 11/27/19 24 12/02/2023 QUANT IFERO N TB GOLD qtb gold NEGATI VE negati ve normal Negat yoli test resul t. M. tuber culos is compl ex infec tion unlik sami. Not Available [facility] [address] [place] [address], [address], 12/02/2023 09:45:35 11/27/19 24 12/02/2023 QUANT IFERO N TB GOLD nil 0.02 IU/mL normal Not Available [facility] [address] [place] [address], [address], 12/02/2023 09:45:35 11/27/19 24 12/02/2023 QUANT IFERO N TB GOLD mitogen nil 7.65 IU/mL normal Not Available [facility] [address] [place] [address], [address], 12/02/2023 09:45:35 11/27/19 24 12/02/2023 QUANT IFERO N TB GOLD TB1 nil 0.00 IU/mL normal Not Available [facility] [address] [place] [address], [address], 12/02/2023 09:45:35 11/27/19 24 12/02/2023 QUANT IFERO N TB GOLD TB2 nil 0.00 IU/mL normal The Nil tube value refle cts the backg round inter feron gamma immun e respo nse of the patie nt's blood sampl e. This value has been subtr acted from the patie nt's displ ayed TB and Mitog en resul ts. Lower than expec david resul ts with the Mitog en tube preve nt false -nega tive Quant ifero n readi ngs by detec marvin espinozae nt with a poten tial immun e suppr essiv e condi tion and/o r subop timal pre-a nalyt ical speci men handl ing. The TB1 Antig en tube is coate d with the M. tuber culos is-sp ecifi c antig ens desig maryam to elici t respo nses from TB antig en prime d CD4+ helpe r T-lym phocy chrissy. The TB2 Antig en tube is coate d with the M. tuber culos is-sp ecifi c antig ens desig maryam to elici t respo nses from TB antig en prime d CD4+ helpe r and CD8+ cytot oxic T-lym phocy chrissy. For addit ional infor nikunj perez e refer to https ://ed ucati on.qu estdi [employer]/f aq/FA Q204 (This link is being provi ded for infor nicolás prasad/ educa quinton l purpo ses only. ) Not Available [facility] [address] [place] [address], [address], 12/02/2023 09:45:35 03/02/20 24 03/02/2024 COMPL ETE BLOOD COUNT white blood cells 10.3 10*3/ uL 3.8-10 .8 normal Not Available [facility] [address] [place] [address], [address], 03/02/2024 14:04:45 03/02/20 24 03/02/2024 COMPL ETE BLOOD COUNT red blood cells 4.17 10*6/ uL 3.80-5 .20 normal Not Available [facility] [address] [place] [address], [address], 03/02/2024 14:04:45 03/02/20 24 03/02/2024 COMPL ETE BLOOD COUNT hemoglobin 12.7 g/dL 12.0-1 6.0 normal Not Available [facility] [address] [place] [address], [address], 03/02/2024 14:04:45 03/02/20 24 03/02/2024 COMPL ETE BLOOD COUNT hematocrit 38.1 % 35.0-4 7.0 normal Not Available [facility] [address] [place] [address], [address], 03/02/2024 14:04:45 03/02/20 24 03/02/2024 COMPL ETE BLOOD COUNT MCV 91 fL 80-100 normal Not Available [facility] [address] [place] [address], [address], 03/02/2024 14:04:45 03/02/20 24 03/02/2024 COMPL ETE BLOOD COUNT MCH 31 pg 26-35 normal Not Available [facility] [address] [place] [address], [address], 03/02/2024 14:04:45 03/02/20 24 03/02/2024 COMPL ETE BLOOD COUNT MCHC 33 g/dL 32-36 normal Not Available [facility] [address] [place] [address], [address], 03/02/2024 14:04:45 03/02/20 24 03/02/2024 COMPL ETE BLOOD COUNT RDW 14.2 % 11.0-1 5.0 normal Not Available [facility] [address] [place] [address], [address], 03/02/2024 14:04:45 03/02/20 24 03/02/2024 COMPL ETE BLOOD COUNT MPV 7.9 fL 6.2-10 .5 normal Not Available [facility] [address] [place] [address], [address], 03/02/2024 14:04:45 03/02/20 24 03/02/2024 COMPL ETE BLOOD COUNT platelet count 261 10*3/ uL 150-40 0 normal Not Available [facility] [address] [place] [address], [address], 03/02/2024 14:04:45 03/02/20 24 03/02/2024 COMPL ETE BLOOD COUNT neutrophil,a bsolute 7.1 10*3/ uL 1.6-8. 4 normal Not Available [facility] [address] [place] [address], [address], 03/02/2024 14:04:45 03/02/20 24 03/02/2024 COMPL ETE BLOOD COUNT lymphocyte,a bsolute 2.0 10*3/ uL 0.4-5. 1 normal Not Available [facility] [address] [place] [address], [address], 03/02/2024 14:04:45 03/02/20 24 03/02/2024 COMPL ETE BLOOD COUNT monocyte,abs olute 0.9 10*3/ uL 0.0-1. 2 normal Not Available [facility] [address] [place] [address], [address], 03/02/2024 14:04:45 03/02/20 24 03/02/2024 COMPL ETE BLOOD COUNT eosinophil,a bsolute 0.2 10*3/ uL 0.0-0. 8 normal Not Available [facility] [address] [place] [address], [address], 03/02/2024 14:04:45 03/02/20 24 03/02/2024 COMPL ETE BLOOD COUNT basophil,abs olute 0.0 10*3/ uL 0.0-0. 3 normal Not Available [facility] [address] [place] [address], [address], 03/02/2024 14:04:45 03/02/20 24 03/02/2024 COMPL ETE BLOOD COUNT % neutrophils 69.5 % 42.0-7 8.0 normal Not Available [facility] [address] [place] [address], [address], 03/02/2024 14:04:45 03/02/20 24 03/02/2024 COMPL ETE BLOOD COUNT % lymphocytes 19.7 % 11.0-4 7.0 normal Not Available [facility] [address] [place] [address], [address], 03/02/2024 14:04:45 03/02/20 24 03/02/2024 COMPL ETE BLOOD COUNT % monocytes 9.1 % 0.0-11 .0 normal Not Available [facility] [address] [place] [address], [address], 03/02/2024 14:04:45 03/02/20 24 03/02/2024 COMPL ETE BLOOD COUNT % eosinophils 1.5 % 0.0-7. 0 normal Not Available [facility] [address] [place] [address], [address], 03/02/2024 14:04:45 03/02/20 24 03/02/2024 COMPL ETE BLOOD COUNT % basophils 0.2 % 0.0-3. 0 normal Not Available [facility] [address] [place] [address], [address], 03/02/2024 14:04:45 03/02/20 24 03/02/2024 COMPL ETE BLOOD COUNT nucleated red cells 0.0 % 0.0-0. 9 normal Not Available [facility] [address] [place] [address], [address], 03/02/2024 14:04:45 03/02/20 24 03/02/2024 COMPL ETE BLOOD COUNT nucleated RBCs, absolute 0.00 10*3/ uL not estab. normal Not Available [facility] [address] [place] [address], [address], 03/02/2024 14:04:45 03/02/20 24 03/02/2024 ALT ALT 33 U/L 0-33 normal Not Available [facility] [address] [place] [address], [address], 03/02/2024 14:16:57 03/02/20 24 03/02/2024 AST AST 28 U/L 0-32 normal Not Available [facility] [address] [place] [address], [address], 03/02/2024 14:16:59 03/02/20 24 03/02/2024 CREAT ININE creatinine 0.90 mg/dL 0.50-0 .95 normal Not Available [facility] [address] [place] [address], [address], 03/02/2024 14:17:01 06/03/20 24 06/03/2024 COMPL ETE BLOOD COUNT white blood cells 6.4 10*3/ uL 3.8-10 .8 normal Not Available [facility] [address] [place] [address], [address], 06/03/2024 11:49:26 06/03/20 24 06/03/2024 COMPL ETE BLOOD COUNT red blood cells 3.92 10*6/ uL 3.80-5 .20 normal Not Available [facility] [address] [place] [address], [address], 06/03/2024 11:49:26 06/03/20 24 06/03/2024 COMPL ETE BLOOD COUNT hemoglobin 12.2 g/dL 12.0-1 6.0 normal Not Available [facility] [address] [place] [address], [address], 06/03/2024 11:49:26 06/03/20 24 06/03/2024 COMPL ETE BLOOD COUNT hematocrit 35.5 % 35.0-4 7.0 normal Not Available [facility] [address] [place] [address], [address], 06/03/2024 11:49:26 06/03/20 24 06/03/2024 COMPL ETE BLOOD COUNT MCV 91 fL 80-100 normal Not Available [facility] [address] [place] [address], [address], 06/03/2024 11:49:26 06/03/20 24 06/03/2024 COMPL ETE BLOOD COUNT MCH 31 pg 26-35 normal Not Available [facility] [address] [place] [address], [address], 06/03/2024 11:49:26 06/03/20 24 06/03/2024 COMPL ETE BLOOD COUNT MCHC 34 g/dL 32-36 normal Not Available [facility] [address] [place] [address], [address], 06/03/2024 11:49:26 06/03/20 24 06/03/2024 COMPL ETE BLOOD COUNT RDW 14.5 % 11.0-1 5.0 normal Not Available [facility] [address] [place] [address], [address], 06/03/2024 11:49:26 06/03/20 24 06/03/2024 COMPL ETE BLOOD COUNT MPV 8.1 fL 6.2-10 .5 normal Not Available [facility] [address] [place] [address], [address], 06/03/2024 11:49:26 06/03/20 24 06/03/2024 COMPL ETE BLOOD COUNT platelet count 224 10*3/ uL 150-40 0 normal Not Available [facility] [address] [place] [address], [address], 06/03/2024 11:49:26 06/03/20 24 06/03/2024 COMPL ETE BLOOD COUNT neutrophil,a bsolute 3.7 10*3/ uL 1.6-8. 4 normal Not Available [facility] [address] [place] [address], [address], 06/03/2024 11:49:26 06/03/20 24 06/03/2024 COMPL ETE BLOOD COUNT lymphocyte,a bsolute 1.8 10*3/ uL 0.4-5. 1 normal Not Available [facility] [address] [place] [address], [address], 06/03/2024 11:49:26 06/03/20 24 06/03/2024 COMPL ETE BLOOD COUNT monocyte,abs olute 0.7 10*3/ uL 0.0-1. 2 normal Not Available [facility] [address] [place] [address], [address], 06/03/2024 11:49:26 06/03/20 24 06/03/2024 COMPL ETE BLOOD COUNT eosinophil,a bsolute 0.2 10*3/ uL 0.0-0. 8 normal Not Available [facility] [address] [place] [address], [address], 06/03/2024 11:49:26 06/03/20 24 06/03/2024 COMPL ETE BLOOD COUNT basophil,abs olute 0.0 10*3/ uL 0.0-0. 3 normal Not Available [facility] [address] [place] [address], [address], 06/03/2024 11:49:26 06/03/20 24 06/03/2024 COMPL ETE BLOOD COUNT % neutrophils 58.2 % 42.0-7 8.0 normal Not Available [facility] [address] [place] [address], [address], 06/03/2024 11:49:26 06/03/20 24 06/03/2024 COMPL ETE BLOOD COUNT % lymphocytes 28.2 % 11.0-4 7.0 normal Not Available [facility] [address] [place] [address], [address], 06/03/2024 11:49:26 06/03/20 24 06/03/2024 COMPL ETE BLOOD COUNT % monocytes 10.7 % 0.0-11 .0 normal Not Available [facility] [address] [place] [address], [address], 06/03/2024 11:49:26 06/03/20 24 06/03/2024 COMPL ETE BLOOD COUNT % eosinophils 2.6 % 0.0-7. 0 normal Not Available [facility] [address] [place] [address], [address], 06/03/2024 11:49:26 06/03/20 24 06/03/2024 COMPL ETE BLOOD COUNT % basophils 0.3 % 0.0-3. 0 normal Not Available [facility] [address] [place] [address], [address], 06/03/2024 11:49:26 06/03/20 24 06/03/2024 COMPL ETE BLOOD COUNT nucleated red cells 0.0 % 0.0-0. 9 normal Not Available [facility] [address] [place] [address], [address], 06/03/2024 11:49:26 06/03/20 24 06/03/2024 COMPL ETE BLOOD COUNT nucleated RBCs, absolute 0.00 10*3/ uL not estab. normal Not Available [facility] [address] [place] [address], [address], 06/03/2024 11:49:26 06/03/20 24 06/03/2024 AST AST 37 U/L 0-32 high Not Available [facility] [address] [place] [address], [address], 06/03/2024 12:17:28 06/03/20 24 06/03/2024 CREAT ININE creatinine 0.80 mg/dL 0.50-0 .95 normal Not Available [facility] [address] [place] [address], [address], 06/03/2024 12:17:30 06/03/20 24 06/03/2024 ALT ALT 39 U/L 0-33 high Not Available [facility] [address] [place] [address], [address], 06/03/2024 12:17:33 11/20/20 24 06/03/2024 GFR ESTIM ATE GFR 86 >= 60 normal NOT E New calcu latio n for GFR (CKD- EPI 2020) is formu lated witho ut race adjus tment facto rs at the recom menda tion of the [facility] y Found atla and Alan stearns Evee ty of Nephr ology . This calcu latio n has not been valid ated in pregn ant women . For pedia tric patie nts refer to https ://bo w.demetrio abdiel.o rg/pr ofess ional s/KDO QI/gf r_cal culat orPed Not Available [facility] [address] [place] [address], [address], 06/03/2024 12:17:34 10/08/19 25 10/07/2024 COMPL ETE BLOOD COUNT white blood cells 8.5 10*3/ uL 3.8-10 .8 normal Not Available [facility] [address] [place] [address], [address], 10/07/2024 10:42:46 10/08/19 25 10/07/2024 COMPL ETE BLOOD COUNT red blood cells 4.51 10*6/ uL 3.80-5 .20 normal Not Available [facility] [address] [place] [address], [address], 10/07/2024 10:42:46 10/08/19 25 10/07/2024 COMPL ETE BLOOD COUNT hemoglobin 14.1 g/dL 12.0-1 6.0 normal Not Available [facility] [address] [place] [address], [address], 10/07/2024 10:42:46 10/08/19 25 10/07/2024 COMPL ETE BLOOD COUNT hematocrit 40.4 % 35.0-4 7.0 normal Not Available [facility] [address] [place] [address], [address], 10/07/2024 10:42:46 10/08/19 25 10/07/2024 COMPL ETE BLOOD COUNT MCV 89 fL 80-100 normal Not Available [facility] [address] [place] [address], [address], 10/07/2024 10:42:46 10/08/19 25 10/07/2024 COMPL ETE BLOOD COUNT MCH 31 pg 26-35 normal Not Available [facility] [address] [place] [address], [address], 10/07/2024 10:42:46 10/08/19 25 10/07/2024 COMPL ETE BLOOD COUNT MCHC 35 g/dL 32-36 normal Not Available [facility] [address] [place] [address], [address], 10/07/2024 10:42:46 10/08/19 25 10/07/2024 COMPL ETE BLOOD COUNT RDW 13.9 % 11.0-1 5.0 normal Not Available [facility] [address] [place] [address], [address], 10/07/2024 10:42:46 10/08/19 25 10/07/2024 COMPL ETE BLOOD COUNT MPV 8.3 fL 6.2-10 .5 normal Not Available [facility] [address] [place] [address], [address], 10/07/2024 10:42:46 10/08/19 25 10/07/2024 COMPL ETE BLOOD COUNT platelet count 259 10*3/ uL 150-40 0 normal Not Available [facility] [address] [place] [address], [address], 10/07/2024 10:42:46 10/08/19 25 10/07/2024 COMPL ETE BLOOD COUNT neutrophil,a bsolute 6.2 10*3/ uL 1.6-8. 4 normal Not Available [facility] [address] [place] [address], [address], 10/07/2024 10:42:46 10/08/19 25 10/07/2024 COMPL ETE BLOOD COUNT lymphocyte,a bsolute 1.5 10*3/ uL 0.4-5. 1 normal Not Available [facility] [address] [place] [address], [address], 10/07/2024 10:42:46 10/08/19 25 10/07/2024 COMPL ETE BLOOD COUNT monocyte,abs olute 0.7 10*3/ uL 0.0-1. 2 normal Not Available [facility] [address] [place] [address], [address], 10/07/2024 10:42:46 10/08/19 25 10/07/2024 COMPL ETE BLOOD COUNT eosinophil,a bsolute 0.1 10*3/ uL 0.0-0. 8 normal Not Available [facility] [address] [place] [address], [address], 10/07/2024 10:42:46 10/08/19 25 10/07/2024 COMPL ETE BLOOD COUNT basophil,abs olute 0.0 10*3/ uL 0.0-0. 3 normal Not Available [facility] [address] [place] [address], [address], 10/07/2024 10:42:46 10/08/19 25 10/07/2024 COMPL ETE BLOOD COUNT % neutrophils 72.8 % 42.0-7 8.0 normal Not Available [facility] [address] [place] [address], [address], 10/07/2024 10:42:46 10/08/19 25 10/07/2024 COMPL ETE BLOOD COUNT % lymphocytes 17.8 % 11.0-4 7.0 normal Not Available [facility] [address] [place] [address], [address], 10/07/2024 10:42:46 10/08/19 25 10/07/2024 COMPL ETE BLOOD COUNT % monocytes 8.0 % 0.0-11 .0 normal Not Available [facility] [address] [place] [address], [address], 10/07/2024 10:42:46 10/08/19 25 10/07/2024 COMPL ETE BLOOD COUNT % eosinophils 1.1 % 0.0-7. 0 normal Not Available [facility] [address] [place] [address], [address], 10/07/2024 10:42:46 10/08/19 25 10/07/2024 COMPL ETE BLOOD COUNT % basophils 0.3 % 0.0-3. 0 normal Not Available [facility] [address] [place] [address], [address], 10/07/2024 10:42:46 10/08/19 25 10/07/2024 COMPL ETE BLOOD COUNT nucleated red cells 0.0 % 0.0-0. 9 normal Not Available [facility] [address] [place] [address], [address], 10/07/2024 10:42:46 10/08/19 25 10/07/2024 COMPL ETE BLOOD COUNT nucleated RBCs, absolute 0.00 10*3/ uL not estab. normal Not Available [facility] [address] [place] [address], [address], 10/07/2024 10:42:46 10/08/19 25 10/07/2024 ALT ALT 26 U/L 0-33 normal Not Available [facility] [address] [place] [address], [address], 10/07/2024 11:22:16 10/08/19 25 10/07/2024 GFR ESTIM ATE GFR 71 >= 60 normal NOT E New calcu latio n for GFR (CKD- EPI 2020) is formu lated witho ut race adjus tment facto rs at the recom menda tion of the Natio n[facility] y Found ation and Ameri daryn Pradoe ty of Nephr ology . This calcu latio n has not been valid ated in pregn ant women . For pedia tric patie nts refer to https ://bo w.demetrio meadows.o leander/pr ofess ional s/KDO QI/gf r_cal culat orPed Not Available [facility] [address] [place] [address], [address], 10/07/2024 11:22:18 10/08/19 25 10/07/2024 CREAT ININE creatinine 0.94 mg/dL 0.50-0 .95 normal Not Available [facility] [address] [place] [address], [address], 10/07/2024 11:22:21 10/08/19 25 10/07/2024 AST AST 19 U/L 0-32 normal Not Available [facility] [address] [place] [address], [address], 10/07/2024 11:22:23 10/08/19 25 10/07/2024 LIPID PROFI LE HDL cholesterol 56 mg/dL 50-242 normal Not Available [facility] [address] [place] [address], [address], 10/07/2024 11:22:24 10/08/19 25 10/07/2024 LIPID PROFI LE triglyceride s 192 mg/dL 0-149 high TRIGL YCERI DE RANGE S DEDE L: < 150 BORDE RLINE HIGH: 150 - 199 HIGH: 200 - 499 VERY HIGH: > OR = 500 Not Available [facility] [address] [place] [address], [address], 10/07/2024 11:22:24 10/08/19 25 10/07/2024 LIPID PROFI LE cholesterol 161 mg/dL 0-199 normal MAGDALENA STERO L (TOTA L) RANGE S ANDRES ABLE: < 200 BORDE RLINE : 200 - 239 HIGHE R RISK: > 239 Not Available [facility] [address] [place] [address], [address], 10/07/2024 11:22:24 10/08/19 25 10/07/2024 LIPID PROFI LE LDL cholesterol 67 mg/dL _(fritz c) 0-99 normal LDL MAGDALENA STERO L RANGE S OPTIM AL: < 100 NEAR/ ABOVE OPTIM AL: 100 - 129 BORDE RLINE HIGH: 130 - 159 HIGH: 160 - 189 VERY HIGH: > OR = 190 Not Available [facility] [address] [place], [address], 10/07/2024 11:22:24 10/08/19 25 10/07/2024 LIPID PROFI LE chol/HDL ratio (calc) 2.9 mg/dL normal NO DEDE L RANGE ESTAB LISHE D FOR MAGDALENA STERO L/HDL RATIO (CALC ULATE D). Not Available [facility] [address] [place], [address], 10/07/2024 11:22:24 Result Notes None recorded. 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 87595112121 9102 Active 2014 From [employer];Prov ider: Estefani David;Sta tus: Active Not Available [facility] 3 18:27:35 Fibromyal lien 717311436 Active 2014 From Automated Load;Prov ider: Estefani David;Sta tus: Active Not Available [facility] 3 18:27:35 Seasonal allergic rhinitis 561175467 Active 2014 From Automated Load;Prov ider: Estefani David;Sta tus: Active Not Available [facility] 3 18:27:35 Psoriasis with arthropat hy Active 2015 From Automated Load;Prov ider: Joanna Rojas;Piper tatus: Active Not Available [facility] 3 18:27:35 Psoriasis vulgaris 983861754 Active 2015 From Automated Load;Prov ider: Joanna Rojas;Piper tatus: Active Not Available Counts include 234 beds at the [facility] 3 18:27:35 Psoriatic arthritis [id number] Active 2017 Not Available Counts include 234 beds at the [facility] 3 18:27:35 Osteoarth ritis of knee [id number] Active 2018 Not Available Counts include 234 beds at the [facility] 3 18:27:35 Problem Notes None recorded. Procedures Surgical History Date Name Laterality Status Provider Name and Address Organization Details Recorded Time 10/08/19 25 Injection Joint/Bursa, Major, w/o US completed JOANNA ROJAS, TOAN [address] [place], [address], [facility] 10/07/2024 10:24:32 06/03/20 24 Injection Joint/Bursa, Major, w/o US completed JOANNA ROJAS, TOAN [address] [place], [address], [facility] 06/03/2024 10:43:26 03/02/20 24 Injection Joint/Bursa, Major, w/o US completed JOANNA ROJAS, TOAN [address] [place], [address], [facility] 03/25/2024 12:18:52 11/27/19 24 Injection Joint/Bursa, Major, w/o US completed JOANNA ROJAS APRN [address] [place], [address], [facility] 2023 10:38:48 02/27/20 23 Injection Joint/Bursa, Major, w/o US completed JOANNA ROJAS APRN [address] [place], [address], [facility] 02/26/2023 20:38:25 11/22/19 23 Injection Joint/Bursa, Major, w/o US completed JOANNA ROJAS, SOFTWARE FIRMWARE ENGINEER [address] [place], [address], [facility] 2022 08:46:10 08/21/19 23 Injection Joint/Bursa, Major, w/o US completed JOANNA ROJAS, SOFTWARE FIRMWARE ENGINEER [address] [place], [address], [place] [facility] 08/21/2022 09:20:52 05/22/20 22 Injection Joint/Bursa, Major, w/o US completed JOANNA ROJAS, SOFTWARE FIRMWARE ENGINEER [address] [place], [address], [place] [facility] 05/22/2022 09:18:12 02/16/20 22 Injection Joint/Bursa, Major, w/o US completed JOANNA ROJAS, SOFTWARE FIRMWARE ENGINEER [address] [place], [address], [place] [facility] 02/21/2022 12:37:43 08/25/19 22 Injection Joint/Bursa, Major, w/o US completed JOANNA ROJAS, SOFTWARE FIRMWARE ENGINEER [address] [place], [address], [facility] 08/25/2021 09:01:45 12/22/19 21 Injection Joint/Bursa, Major, w/o US completed JOANNA ROJAS, SOFTWARE FIRMWARE ENGINEER [address] [place], [address], [place] [facility] 12/28/2020 17:11:52 01/01/20 19 Injection Joint/Bursa, Major, w/o US completed JOANNA ROJAS, SOFTWARE FIRMWARE ENGINEER [address] [place], [address], [facility] 01/07/2019 08:28:13 05/28/20 18 Injection Joint/Bursa, Major, w/o US completed JOANNA ROJAS, SOFTWARE FIRMWARE ENGINEER [address] [place], [address], [facility] 05/28/2018 08:39:04 Cholecystectomy completed Lilian Wyman [facility] 01/09/2017 08:44:46 Other completed Lilian Wyman [facility] 01/09/2017 08:44:58 Imaging Results None recorded. Procedure Notes None recorded. Medical Equipment None Reported. Allergies Allergen ID Allergen Name Allergen Category Reaction Reaction Severity Criticality Documentation Date Start Date Code Code System Note Provider Name and Address Organization Details Recorded Time [id number] codeine medicatio n Not available Not available Not available 06/07/20162014 2670 RxNorm Comme nt: Creat ed By: Kathlene ann; Creat ed Date: 2014 11:07 :41 AM; Not Available [facility] 6 14:06:47 [id number] hydroxych loroquine medicatio n rash moderate low 12/20/2022 5521 RxNorm JOANNA ROJAS, SOFTWARE FIRMWARE ENGINEER [address] [place], [address] [place] [address] 4 09:28:07 Medications Name Sig Start Date Stop Date Status Note LastModified by Organization Details LastModified Time Prescript ion - Prior Authoriza tion Request 12/21 completed Not Available Not Available Not Available Singulair 10 mg tablet Daily active Frequenc y: daily;Me dication Descript ion: monteluk ast; Dosage:1 ; Route:or al; refills: 5; Quantity :30 tablet Not Available Not Available Not Available celecoxib 200 mg capsule 09/07 completed Not Available Not Available Not Available cyclobenz aprine 10 mg tablet Take 1 tablet twice a day by oral route. 2024 active Not Available Not Available Not Avai lable furosemid e 40 mg tablet Take 1 tablet every day by oral route. active Not Available Not Available No t Available Neurontin 300 mg capsule take one po in the morning, afternoo n and take two in the evening 2024 active Not Available Not Available Not Avai lable ketoconaz ole 2 % shampoo APPLY TO THE AFFECTED AREA(S) TOPICALL Y, LATHER, LEAVE IN PLACE FOR 5 MINUTES, AND THEN RINSE OFF WITH WATER ONCE DAILY 2024 active Not Available Not Available Not Avai lable promethaz ine 12.5 mg tablet Every six hours 01/09 completed Duration : 30 days;Ins truction s: a at onset migraine ; may repeat q6h PRN; may cause drowsine ss;Frequ ency: q6h;Alt Frequenc y: prn;Medi cation Descript ion: prometha zine; Dosage:1 ; Route:or al; refills: 11; Quantity :20 tablet Not Available Not Available Not Available metoprolo l succinate ER 100 mg tablet,ex tended release 24 hr active Medicati on Descript ion: metoprol ol; Route:or al; refills: 0 Not Available Not Available Not Available Pyridium 200 mg tablet Take 1 tablet 3 times a day by oral route for 6 days. 12/21 completed Not Available Not Available Not Available pantopraz ole 40 mg intraveno us solution Inject by intraven ous route. active Not Available Not Available No t Available tramadol 50 mg tablet Take 1 tablet 3 times a day by oral route. 2024 active Not Available Not Available Not Avai lable triamcino lone acetonide 0.1 % topical cream apply to skin behind the ears tid prn 2022 active Not Available Not Available Not Avai lable Depo-Medr ol 80 mg/mL suspensio n for injection Take 120 mg by injectio n route. 08/28 completed Not Available Not Available Not Available meloxicam 7.5 mg tablet 01/09 completed Medicati on Descript ion: meloxica m; Route:or al; refills: 0 Not Available Not Available Not Available Zofran 4 mg tablet Three times a day 01/03 completed Duration : 30 days;Ins truction s: as alternat yoli to prometha zine: 1 at onset migraine , may repeat q8h PRN;Freq uency: tid;Alt Frequenc y: prn as dir;Medi cation Descript ion: ondanset gil; Dosage:1 ; Route:or al; refills: 11; Quantity :20 tablet Not Available Not Available Not Available methotrex ate sodium 2.5 mg tablet As Directed 01/09 completed Duration : 90 days;Ins truction s: Every week, Take 5 tablets once weekly.; Frequenc y: as direct.; Medicati on Descript ion: methotre xate; Dosage:a s directed ; Route:or al; refills: 1; Quantity :75 tablet Not Available Not Available Not Available baclofen 10 mg tablet TAKE ONE TABLET BY MOUTH AT 8 AM AND AT 8 PM 02/15 completed increase d dose of cycloben zaprine Not Available Not Available Not Available Synthroid 50 mcg tablet Daily 12/04 completed Frequenc y: daily;Me dication Descript ion: levothyr oxine; Dosage:1 ; Route:or al; refills: 0; Quantity :30 tablet Not Available Not Available Not Available diclofena c sodium 75 mg tablet,de layed release Take 1 tablet twice a day by oral route. 04/28 completed Not Available Not Available Not Available folic acid 1 mg tablet take one daily 01/09 completed Duration : 90 days;Ins truction s: TAKE ONE TABLET BY MOUTH ONCE DAILY;Fr equency: as direct.; Medicati on Descript ion: folic acid; Dosage:a s directed ; Route:or al; refills: 2; Quantity :90 tablet Not Available Not Available Not Available hydroxych loroquine 200 mg tablet Take 1 tablet every day by oral route. 08/28 completed Not Available Not Available Not Available fluocinon nidia 0.05 % topical solution APPLY TO THE AFFECTED AREA(S) BY TOPICAL ROUTE 2 TIMES PER DAY 02/15 completed Not Available Not Available Not Available clobetaso l 0.05 % scalp solution APPLY TO THE AFFECTED SCALP AREA BY TOPICAL ROUTE 2 TIMES PER DAY IN THE MORNING AND EVENING 2024 active PA approved 1.8.23-2 .7.24 Not Available Not Available Not Available AcipHex 20 mg tablet,de layed release Daily 07/11 completed Duration : 30 days;Alfred quency: daily;Me dication Descript ion: rabepraz ole; Dosage:1 ; Route:or al; refills: 0; Quantity :30 tablet, extended release Not Available Not Available Not Available Topamax 100 mg tablet active Medicati on Descript ion: topirama te; Route:or al; refills: 0; Quantity :1 tablet Not Available Not Available Not Available Ventolin HFA 90 mcg/actua tion aerosol inhaler 12/04 completed Medicati on Descript ion: albutero l; Route:in halation ; refills: 0 Not Available Not Available Not Available Lexapro 20 mg tablet Daily 07/11 completed Duration : 30 days;Alfred quency: daily;Me dication Descript ion: escitalo pram; Dosage:1 ; Route:or al; refills: 5; Quantity :30 tablet Not Available Not Available Not Available Humira 40 mg/0.8 mL subcutane ous syringe kit 12/04 completed PA approved 08/14/17- 09/12/20 Not Available Not Available Not Available clobetaso l 0.05 % shampoo Apply by topical route for 30 days. 2022 active Not Available Not Available Not Avai lable duloxetin e 30 mg capsule,d elayed release 12/27 completed Not Available Not Available Not Available Cymbalta 60 mg capsule,d elayed release Take 1 capsule every day by oral route for 90 days. 2024 active Not Available Not Available Not Avai lable potassium 10 mg once daily 05/28 completed Not Available Not Available Not Available Vitamin D3 active Medicati on Descript ion: cholecal ciferol; Route:or al; refills: 0 Not Available Not Available Not Available Humira Pen 40 mg/0.8 mL subcutane ous kit INJECT 40 MG UNDER THE SKIN EVERY WEEK 12/04 completed PA approved 08/14/17- 09/12/20 Not Available Not Available Not Available Abilify 2 mg tablet Take 1 tablet every day by oral route at bedtime. 05/28 completed Not Available Not Available Not Available Veramyst 27.5 mcg/actua tion nasal spray,mitch pension 12/04 completed Medicati on Descript ion: fluticas one nasal; Route:na kandice; refills: 0 Not Available Not Available Not Available Xyzal 5 mg tablet 01/09 completed Medicati on Descript ion: levoceti rizine; Route:or al; refills: 0 Not Available Not Available Not Available Dexilant 60 mg capsule, delayed release Take 1 capsule every day by oral route for 56 days. 02/15 completed Not Available Not Available Not Available Duexis 800 mg-26.6 mg tablet 12/21 completed PA CAse#[id number] Approved -3/2/20 22 Not Available Not Available Not Available Cosentyx 150 mg/mL subcutane ous syringe 03/03 completed Not Available Not Available Not Available Cosentyx Pen 300 mg/2 pens (150 mg/mL) subcutane ous pen injector 11/29 completed insuranc e will not cover Not Available Not Available Not Available Taltz Syringe 80 mg/mL subcutane ous Inject 1 mL every 4 weeks by subcutan eous route. 11/29 completed PA approved 07/31/21 - 3changed to skyrizi per insuranc e Not Available Not Available Not Available Taltz Autoinjec tor 80 mg/mL subcutane ous 11/29 completed changed to skyrizi Not Available Not Available Not Available Rinvoq 15 mg tablet,ex tended release 2024 active Not Available Not Available Not Avai lable Voltaren Arthritis Pain 1 % topical gel APPLY 2 GRAMS TO THE AFFECTED AREA(S) BY TOPICAL ROUTE 4 TIMES PER DAY 2024 active Not Available Not Available Not Avai lable Skyrizi 150 mg/mL subcutane ous pen injector active Not Available Not Available Not Available Wegoriky active September 14 2024 Not Available Not Available Not Available Vitals Date Recorded Body height Body mass index (BMI) Body weight Respiratory rate Heart rate Oxygen saturation Oxygen saturation in Arterial blood by Pulse oximetry Systolic And Diastolic Provider Name and Address Organization Details Last Updated DateTime 4 175.26 cm 40.6 kg/m2 456608. 6 g 16 /min 99 /min 99 % 99 % 126/74 mm[Hg] Halley Villanueva [facility] 4 09:02:22 Date Recorded Body height Body mass index (BMI) Body weight Heart rate Oxygen saturation Oxygen saturation in Arterial blood by Pulse oximetry Systolic And Diastolic Provider Name and Address Organization Details Last Updated DateTime 5 175.26 cm 39.3 kg/m2 698347. 57 g 54 /min 99 % 99 % 100/70 mm[Hg] Dali Donovan [facility] 5 09:27:38 Date Recorded Body height Body mass index (BMI) Body weight Heart rate Oxygen saturation Oxygen saturation in Arterial blood by Pulse oximetry Systolic And Diastolic Provider Name and Address Organization Details Last Updated DateTime 4 175.26 cm 40.9 kg/m2 361621. 09 g 80 /min 99 % 99 % 120/80 mm[Hg] [facility] 4 10:17:44 Date Recorded Body height Body mass index (BMI) Body weight Heart rate Oxygen saturation Oxygen saturation in Arterial blood by Pulse oximetry Systolic And Diastolic Provider Name and Address Organization Details Last Updated DateTime 4 175.26 cm 41.8 kg/m2 246772. 64 g 84 /min 96 % 96 % 122/72 mm[Hg] [facility] 4 13:06:41 Date Recorded Body height Body mass index (BMI) Body weight Heart rate Oxygen saturation Oxygen saturation in Arterial blood by Pulse oximetry Systolic And Diastolic Provider Name and Address Organization Details Last Updated DateTime 4 175.26 cm 43.4 kg/m2 445401. 16 g 87 /min 96 % 96 % 130/86 mm[Hg] [facility] 4 10:37:10 Social History Question Answer Notes LastModified by [email or web address] Details LastModified Time Tobacco Smoking Status [facility] 09:19:31 How Much Tobacco Do You Chew? None [email or web address] Information not available 2018 What Was The Date Of Your Most Recent Tobacco Screening? 10/07/2024 [email or web address] Information not available 10/07/2024 How Much Tobacco Do You Smoke? 1 PPW [email or web address] Information not available 2018 Has Tobacco Cessation Counseling Been Provided? No Information not available 11/17/2021 On What Date Was Tobacco Cessation Counseling Provided? 12/21/2020 [email or web address] Information not available 12/21/2020 How Many Years Have You Smoked Tobacco? 5 [email or web address] Information not available 2018 Have You Recently Traveled Abroad? No Information not available 05/22/2022 Sex: Female Functional Status Question Answer Note LastModified by Organizat ion Details LastModified Time Do you use any illicit or recreational drugs? No Information not available 11/17/2021 What is your level of alcohol consumption? None [email or web address] Information not available 05/22/2022 Do you or have you ever used smokeless tobacco? Never used smokeless tobacco [email or web address] Information not available 12/21/2020 Do you or have you ever used e-cigarettes or vape? Never used electronic cigarettes [email or web address] Information not available 12/21/2020 Mental Status None recorded. Family History Relationship Description Onset Age of this Age Resolved Age Notes LastModified by Organization Details LastModified Time Unspecified Relation Arthritis Not available 11/13 08:54:47 Maternal Uncle Arthritis [email or web address] Not available 08/28 08:08:32 Maternal Grandmother Arthritis Not available 0 08/28/2018 08:08:32 Medical History Condition Response Emphysema N COPD N Diabetes N Bleeding Disorder N Arthritis Y Acid Reflux (GERD) Y Asthma Y Heart Disease Y Rheumatoid Arthritis N Hypertension N Gynecological HistoryNo gynecological history recorded. Obstetrics History GPAL:G 0 P 0 0 0 0 Past Encounters Encounter ID Performer Location Encounter Start Date Encounter Closed Date Diagnosis/Indication Diagnosis SNOMED-CT Code Diagnosis ICD10 Code Diagnosis Note [id number] JOANNA ROJAS APRN [facility] [place] [address] [address] 07/11/2016 08:42:53 07/11/2016 09:57:38 Psoriatic arthritis 854095746 L40.50 Long-term drug therapy 422421156 Z79.347 [id number] JOANNA ROJAS APRN [facility] [address] [address] 01/09/2017 08:25:58 01/09/2017 09:15:52 Psoriasis with arthropathy 73692776 L40.50 chronic and recurringn ormal systemic exam despite some rash activity Fibromyalgia 887493563 M 79.7 Psoriasis of scalp 63700 8008 L40.9 returning on the scalp with some significan t itching reported by patient Long-term drug therapy 852711370 Z79.899 chronic and recurringn eeds further lab assessment today Psoriatic arthritis 1563 58911 L40.50 due to neuropathi c paincontin ue on gabapentin , increasing as writtennew controlled substance agreement signed todaykaspe r today [id number] JOANNA ROJAS APRN [facility] [address] [place] [address] 05/09/2017 08:17:05 05/09/2017 09:14:57 Psoriasis of scalp 830824057 L40.9 returning on the scalp with some significan t itching reported by patient Long-term drug therapy 849242045 Z79.899 chronic and recurringn eeds further lab assessment today Psoriatic arthritis 1563 57455 L40.50 chronic and recurring normal systemic examstable disease processno interval infections bilateral foot pain continuesc ontinue on gabapentin controlled substance agreement signedkasp er todayrefil ls today Pain in both feet 680514 7201 7328244 M79.671 M79.672 plantar fasciitis? will obtain xray of feet todaytende r to palpdiscus sed treatment for plantar fasciitis tender in left foot; right foot started [id number] JOANNA ROJAS APRN [facility] [address] [place] [address] 09/11/2017 08:45:11 09/11/2017 09:39:33 Psoriatic arthritis 366853820 L40.50 chronic and recurringw ith scalp psoriasis; bilateral foot pain and tenderness stable disease processrec ent flubilater al foot pain continuesc ontinue on gabapentin glenn todayrefil ls today Psoriasis of scalp 32020 8008 L40.9 returning on the scalp with some significan t itching reported by patient Long-term drug therapy 858069800 Z79.899 chronic and recurringn eeds further lab assessment today Pain in both feet 106313 5013 4534433 M79.671 M79.672 tender to palpxray with enthesitis tender in left foot; right foot started Fatigue 93746194 R53.83 Retention of urine 82130 4002 R33.9 [id number] JOANNA ROJAS APRN [facility] [address] [place] [address] 12/04/2017 08:42:17 12/04/2017 09:30:42 Psoriatic arthritis 251140580 L40.50 chronic and recurringw ith scalp psoriasis; bilateral foot pain and tenderness stable disease processcon tinue with cosentyxco ntinue on gabapentin glenn todayrefil ls today [id number] JOANNA ROJAS APRN [facility] [address] [place] [address] 02/26/2018 08:14:47 02/26/2018 08:50:09 Psoriatic arthritis 781626031 L40.50 chronic and recurring with scalp psoriasis; bilateral foot pain and tenderness improved with very little psoriasis and improved joint paincontin ue with cosentyxco ntinue on gabapentin glenn todayrefil ls today [id number] JOANNA ROJAS APRN [facility] [address] [place] [address] 05/28/2018 08:14:51 05/28/2018 10:29:45 Psoriatic arthritis 913510502 L40.50 chronic and recurring with scalp psoriasis; bilateral foot pain and tenderness improved with very little psoriasis and improved joint paincontin ue with cosentyxco ntinue on gabapentin glenn todayrefil today Effusion o f joint of right knee 5434879044 96517 M25.461 will aspirate and inject today had mri with pcp will request this today [id number] JOANNA ROJAS APRN [facility] [address] [place] [address] 08/28/2018 07:59:57 08/28/2018 08:59:54 Psoriatic arthritis 144437705 L40.50 chronic and recurring with scalp psoriasis; bilateral foot pain and tenderness improved with very little psoriasis and improved joint paincontin ue with cosentyxco ntinue on gabapentin glenn todayrefil ls today Effusion o f joint of right knee 5189039339 03001 M25.461 improved; with possible avn seeing orthopedic surgeon next week [id number] JOANNA ROJAS APRN [facility] [address] [place] [address] 2018 08:14:13 2018 15:27:43 Psoriatic arthritis 863641159 L40.50 chronic and recurring with scalp psoriasis; bilateral foot pain and tenderness improved with very little psoriasis and improved joint paincontin ue with cosentyxco ntinue on gabapentin glenn todayrefil ls today Effusion o f joint of right knee 2438551903 15689 M25.461 improved; with possible avn seeing orthopedic surgeon next week Psoriasis of scalp 85261 8008 L40.9 returning on the scalp with some significan t itching reported by patient Recurrent urinary tract infection 314319858 N39.0 Long-term drug therapy 449621066 Z79.899 chronic and recurringn eeds further lab assessment today [id number] C ERMIAS DAVID PA-C [facility] [address] [place] [address] 12/15/2018 07:37:06 12/15/2018 09:01:58 Osteoarthritis of knee 436537120 M17.11 Right knee arthritis unlikely psoriatic due to distributi on pattern. We'll try Celebrex and we put in prior authorizat ion request for hyaluronic acid. MRI shows questionab le AVN versus inflammato ry cyst. Until such time as it creates bone collapse there is no ability to address this imaging pathology [id number] JOANNA ROJAS APRN [facility] [address] [place] [address] 12/31/2018 09:17:28 01/07/2019 09:36:02 Osteoarthritis of knee 973280365 M17.11 chronic and recurring knee pain With x-ray and MRI MRI indicates a possible AVN was seen by ortho and was told there was no reason for surgical interventi on at this time She is here today with recurring pain and requests right knee injection today right knee injection given [id number] JOANNA ROJAS APRN [facility] [address] [place] [address] 05/28/2019 08:34:34 05/28/2019 09:35:14 Osteoarthritis of knee 687416351 M17.11 chronic and recurring knee pain With x-ray and MRI MRI indicates a possible AVN was seen by ortho and was told there was no reason for surgical interventi on at this time Psoriatic arthritis 1563 85024 L40.50 chronic and recurring with scalp psoriasis; bilateral foot pain and tenderness improved with very little psoriasis and improved joint paincontin ue with cosentyxco ntinue on gabapentin glenn todayrefil ls today Psoriasis of scalp 20159 8008 L40.9 returning on the scalp with some significan t itching reported by patient Long-term drug therapy 772388654 Z79.899 chronic and recurringn eeds further lab assessment today [id number] ANGELA HARRINGTON MD [facility] [address] [address] 12/28/2019 08:11:05 12/28/2019 08:22:16 Psoriatic arthritis 891776353 L40.50 follow by Poppy Rojas for psoriatic arthritis. Doing very well. Doing good range of motion without any active joint disease. Stable skin. Maintain Cosentyx 300 mg every 4 weeks. Follow-up on labs. Osteoarthr itis of knee 396146649 M17.11 chronic and clinically stable. Weight loss and syncopal impact exercise encouraged . MRI findings questionab le avascular necrosis, followed by orthopedic surgery but without any need for active interventi on. Long-term drug therapy 534732567 Z79.899 obtain labs. Follow-up in 3 months Fibromyalgia M 79.7 54-year-ol d female with fibromyalg ia syndrome. Chronic and clinically stable. Maintain gabapentin 300 mg 3 times a day, baclofen 10 mg twice a day. Discontinu e cyclobenza michelle. She will maintain Cymbalta 60 mg a day. Weight loss encouraged . Low impact exercises encouraged . [id number] JOANNA ROJAS APRN [facility] [address] [address] 04/27/2020 08:17:54 04/27/2020 08:52:59 Psoriatic arthritis 291164170 L40.50 follow by Poppy Rojas for psoriatic arthritis. Doing very well. Doing good range of motion without any active joint disease. Stable skin. Maintain Cosentyx 300 mg every 4 weeks. Follow-up on labs. Osteoarthr itis of knee 254745176 M17.11 chronic and clinically stable. Weight loss and syncopal impact exercise encouraged . MRI findings questionab le avascular necrosis, followed by orthopedic surgery but without any need for active interventi on. Long-term drug therapy 478430413 Z79.899 obtain labs. Follow-up in 3 months Fibromyalgia M 79.7 54-year-ol d female with fibromyalg ia syndrome. Chronic and clinically stable. Maintain gabapentin 300 mg 3 times a day, baclofen 10 mg twice a day. Discontinu e cyclobenza michelle. She will maintain Cymbalta 60 mg a day. Weight loss encouraged . Low impact exercises encouraged . Trochanter ic bursitis of left hip [id number] 57119 M70.62 left palpable bursa [id number] JOANNA ROJAS APRN [facility]HE[facility]OL [facility] [address] [place] [address] 09/07/2020 08:10:58 09/07/2020 09:37:03 Psoriatic arthritis [id number] L40.50 follow by Poppy Rojas for psoriatic arthritis. Doing very well. Doing good range of motion without any active joint disease. Stable skin. Maintain Cosentyx 300 mg every 4 weeks. Follow-up on labs. Osteoarthr itis of knee 149201425 M17.11 chronic and clinically stable. Weight loss and syncopal impact exercise encouraged . MRI findings questionab le avascular necrosis, followed by orthopedic surgery but without any need for active interventi on. celebrex keeps her stomach Long-term drug therapy 864463851 Z79.899 obtain labs. Follow-up in 3 months Fibromyalgia [id number] M 79.7 54-year-ol d female with fibromyalg ia syndrome. Chronic and clinically stable. Maintain gabapentin 300 mg 3 times a day, baclofen 10 mg twice a day. Discontinu e cyclobenza michelle. She will maintain Cymbalta 60 mg a day. Weight loss encouraged . Low impact exercises encouraged . [id number] JOANNA ROJAS APRN RHEUMATOL [facility] [address] [place] [address] 12/21/2020 09:38:00 12/21/2020 11:44:55 Psoriatic arthritis [id number] L40.50 f/u on psoriatic arthritis. scalp is increased in rasheswill have her continue with taltz 80 mg once monthlywil l provide with bilateral hip injections todaywill have her further use topicals for the scalp and obtain further labs and xrays today Osteoarthr itis of knee 956049507 M17.11 chronic and clinically stable. Weight loss and syncopal impact exercise encouraged . MRI findings questionab le avascular necrosis, followed by orthopedic surgery but without any need for active interventi on. celebrex keeps her stomach Long-term drug therapy 432716805 Z79.899 obtain labs. Follow-up in 3 months Fibromyalgia M 79.7 54-year-ol d female with fibromyalg ia syndrome. Chronic and clinically stable. Maintain gabapentin 300 mg 3 times a day, baclofen 10 mg twice a day. Discontinu e cyclobenza michelle. She will maintain Cymbalta 60 mg a day. Weight loss encouraged . Low impact exercises encouraged . Tuberculos is screening 510917748 Z11.1 Body mass index 30+ - obesity 909499291 Z68.38 Trochanter ic bursitis of left hip 4417980680 35332 M70.62 left palpable bursa [id number] JOANNA ROJAS APRN [facility] [address] [place] [address] 03/03/2021 10:15:59 03/03/2021 11:22:42 Psoriatic arthritis 842796250 L40.50 f/u on psoriatic arthritis. scalp is increased in rasheswill have her continue with taltz 80 mg once monthly will have her further use topicals for the scalp and obtain further labs and xrays today Osteoarthr itis of knee 330237235 M17.11 chronic and clinically stable. Weight loss and syncopal impact exercise encouraged . MRI findings questionab le avascular necrosis, followed by orthopedic surgery but without any need for active interventi on. celebrex keeps her stomach Fibromyalgia M 79.7 54-year-ol d female with fibromyalg ia syndrome. Chronic and clinically stable. Maintain gabapentin 300 mg 3 times a day, baclofen 10 mg twice a day. Discontinu e cyclobenza michelle. She will maintain Cymbalta 60 mg a day. Weight loss encouraged . Low impact exercises encouraged . Tuberculos is screening 703002100 Z11.1 12/21/2020 neg Trochanter ic bursitis of left hip [id number] 32052 M70.62 left palpable bursa, improvedno need for injections today Long-term drug therapy 361662441 Z79.899 obtain labs. Follow-up in 3 months Body mass index 30+ - obesity 057897089 Z68.38 Tendinitis of left shoulder 5960887341 212779 M75.92 Generalize d osteoarthritis 617001268 M15.9 [id number] JOANNA ROJAS APRN [facility] [address] [place] [address] 04/28/2021 09:23:55 04/28/2021 10:37:47 Psoriatic arthritis 409094564 L40.50 f/u on psoriatic arthritis. scalp is increased in rasheswill have her continue with taltz 80 mg once monthly will have her further use topicals for the scalp and obtain further labs and xrays todaywith injection site rednesswil l have her use cortisone cream prior to the injection Osteoarthr itis of knee 707345721 M17.11 chronic and clinically stable. Weight loss and syncopal impact exercise encouraged . MRI findings questionab le avascular necrosis, followed by orthopedic surgery but without any need for active interventi on. celebrex keeps her stomach Fibromyalgia 618640666 M 79.7 54-year-ol d female with fibromyalg ia syndrome. Chronic and clinically stable. Maintain gabapentin 300 mg 3 times a day, baclofen 10 mg twice a day. Discontinu e cyclobenza michelle. She will maintain Cymbalta 60 mg a day. Weight loss encouraged . Low impact exercises encouraged . Tuberculos is screening 870407479 Z11.1 12/21/2020 neg Tendinitis of left shoulder 1081648328 983715 M75.92 comes and goes worsening againthe pain radiating down the left armincreas ed neck pain and stiffnessw ith pain down into the middle backdecrea sed rotation of the left shoulderus ing heat, ice, rest, stretches without reliefhas further worsening neck and upper back pain Trochanter ic bursitis of left hip [id number] 02035 M70.62 left palpable bursa, improvedno need for injections today Long-term drug therapy 776750944 Z79.899 obtain labs. Follow-up in 3 months Body mass index 30+ - obesity 868542769 Z68.38 Neck pain 34656976 M54.2 chronic and recurringf amily history of spinal stenosisse margaret left shoulder painwith decreased rom [id number] JOANNA ROJAS APRN [facility] [address] [place] [address] 08/16/2021 09:42:18 08/16/2021 16:02:05 Tendinitis of left shoulder 5312604951 030569 M75.92 comes and goes worsening againthe pain radiating down the left armincreas ed neck pain and stiffnessw ith pain down into the middle backdecrea sed rotation of the left shoulderus ing heat, ice, rest, stretches without reliefhas further worsening neck and upper back pain Neck pain 96003864 M54.2 chronic and recurringf amily history of spinal stenosisse margaret left shoulder painwith decreased romneck improved with pt but not shoulderwi ll come in for shoulder injection Psoriatic arthritis 1563 27810 L40.50 f/u on psoriatic arthritis. scalp is increased in rasheswill have her continue with taltz 80 mg once monthly will have her further use topicals for the scalp and obtain further labs and xrays todaywith injection site rednesswil l have her use cortisone cream prior to the injection Osteoarthr itis of knee 098033437 M17.11 chronic and clinically stable. Weight loss and syncopal impact exercise encouraged . MRI findings questionab le avascular necrosis, followed by orthopedic surgery but without any need for active interventi on. celebrex keeps her stomach Fibromyalgia 187065650 M 79.7 54-year-ol d female with fibromyalg ia syndrome. Chronic and clinically stable. Maintain gabapentin 300 mg 3 times a day, baclofen 10 mg twice a day. Discontinu e cyclobenza michelle. She will maintain Cymbalta 60 mg a day. Weight loss encouraged . Low impact exercises encouraged . Tuberculos is screening 542141625 Z11.1 12/21/2020 neg Trochanter ic bursitis of left hip 2830025957 57514 M70.62 left palpable bursa, improvedno need for injections today Long-term drug therapy 997129678 Z79.899 obtain labs. Follow-up in 3 months Body mass index 30+ - obesity 138077662 Z68.38 Generalize d osteoarthritis 000864191 M15.9 cannot tolerate nsaids due to stomach upsetmaint ains tramadol [id number] JOANNA ROJAS APRN [facility]ATOL [facility] [address] [place] [address] 08/25/2021 07:52:47 08/25/2021 09:05:07 Pain of shoulder region 38202742 M25.519 failed conservati ve measures with PT, meds, injections ; lt shoulder limited in rom and increased painimprov ed neck pain with PTshoulder worseningb ursa inflamed on mriwill provide with bursa injection today into the left shoulder [id number] JOANNA ROJAS APRN [facility] [address] [place] [address] 11/17/2021 08:49:52 11/17/2021 10:43:47 Tendinitis of left shoulder 1062231754 760585 M75.92 comes and goes worsening againthe pain radiating down the left armincreas ed neck pain and stiffnessw ith pain down into the middle backdecrea sed rotation of the left shoulderus ing heat, ice, rest, stretches without reliefhas further worsening neck and upper back pain Neck pain 24955967 M54.2 chronic and recurringf amily history of spinal stenosisse margaret left shoulder painwith decreased romneck improved with pt but not shoulderwi ll come in for shoulder injection prn Psoriatic arthritis 1563 88929 L40.50 f/u on psoriatic arthritis. scalp is increased in rasheswill have her continue with taltz 80 mg once monthly will have her further use topicals for the scalp and obtain further labs and xrays todaywith injection site rednesswil l have her use cortisone cream prior to the injection Osteoarthr itis of knee 138889034 M17.11 chronic and clinically stable. Weight loss and syncopal impact exercise encouraged . MRI findings questionab le avascular necrosis, followed by orthopedic surgery but without any need for active interventi on. celebrex keeps her stomach Fibromyalgia 905733874 M 79.7 55-year-ol d female with fibromyalg ia syndrome. Chronic and clinically stable. Maintain gabapentin 300 mg 3 times a day, baclofen 10 mg twice a day. Discontinu e cyclobenza michelle. She will maintain Cymbalta 60 mg a day. Weight loss encouraged . Low impact exercises encouraged . Tuberculos is screening 594481933 Z11.1 12/21/2020 neg Trochanter ic bursitis of left hip 7080880557 65541 M70.62 left palpable bursa, improvedno need for injections today Long-term drug therapy 321503250 Z79.899 obtain labs. Follow-up in 3 months Body mass index 30+ - obesity 972062999 Z68.38 Generalize d osteoarthritis 363538181 M15.9 cannot tolerate nsaids due to stomach upsetmaint ains tramadol Lumbago with sciatica 20 8938340 M54.41 [id number] JOANNA ROJAS APRN [facility] [address] [place] [address] 02/15/2022 08:42:35 02/15/2022 15:36:56 Psoriatic arthritis 972862736 L40.50 f/u on psoriatic arthritis. scalp is increased in rasheswill have her continue with taltz 80 mg once monthly until she is approved for another medication as the taltz is not helping her skin nor her joints at this pointshe did the best on cosentyx and requested to return to cosentyx but it has been denied despite an appealso upon review of the coverage I will request that she start on skyrizi 150 mg for psoriatic arthritis [150 mg SC q12wk] though she didn't get the loading dose, so we will start over with samples for a loading dose at 0, 4 weeks then every 12 weeks should have been followed but the loading didn't get sent in... Start: 150 mg SC x1 on wk 0, 4, then q12wk; Info: use alone or w/ non-biolog ic DMARDsshe failed humira, taltz, methotrexa te, plaquenil, cosentyxtb negative 11/17/2021 Tendinitis of left shoulder 2185678706 160201 M75.92 comes and goes worsening againthe pain radiating down the left armincreas ed neck pain and stiffnessw ith pain down into the middle backdecrea sed rotation of the left shoulderus ing heat, ice, rest, stretches without reliefhas further worsening neck and upper back painsecond nilesh to oa in the ac joint; bone on bone Fibromyalgia 893579221 M 79.7 Chronic and clinically stable. Maintain gabapentin 300 mg 3 times a day, baclofen 10 mg twice a day. Discontinu e cyclobenza michelle. She will maintain Cymbalta 60 mg a day. Weight loss encouraged . Low impact exercises encouraged . Tuberculos is screening 160015746 Z11.1 12/21/2020 neg Neck pain 26909006 M54.2 chronic and recurringf amily history of spinal stenosisse margaret left shoulder painwith decreased romneck improved with pt but not shoulderwi ll come in for shoulder injection prn Osteoarthr itis of knee 744537220 M17.11 chronic and clinically stable. Weight loss and syncopal impact exercise encouraged . MRI findings questionab le avascular necrosis, followed by orthopedic surgery but without any need for active interventi on. celebrex keeps her stomach Lumbago with sciatica 20 8833175 M54.41 Generalize d osteoarthritis 788071950 M15.9 cannot tolerate nsaids due to stomach upsetmaint ains tramadol Long-term drug therapy 958318563 Z79.899 obtain labs. Follow-up in 3 months Psoriasis of scalp 92040 8008 L40.9 returning on the scalp with some significan t itching reported by patient Bilateral trochanteric bursitis 5081935747 2501225 M70.61 M70.62 with large palpable bursaswill provide with injections today as she has failed further conservati ve measures to include ice, exercise, PT, meds and sleep changes [id number] JOANNA ROJAS APRN [facility] [address] [place] [address] 05/22/2022 08:14:29 05/22/2022 16:51:27 Psoriatic arthritis 779291659 L40.50 f/u on psoriatic arthritis. scalp is increased in rasheswill have her continue with taltz 80 mg once monthly until she is approved for another medication as the taltz is not helping her skin nor her joints at this pointshe did the best on cosentyx and requested to return to cosentyx but it has been denied despite an appealso upon review of the coverage I will request that she start on skyrizi 150 mg for psoriatic arthritis [150 mg SC q12wk] though she didn't get the loading dose, so we will start over with samples for a loading dose at 0, 4 weeks then every 12 weeks should have been followed but the loading didn't get sent in... Start: 150 mg SC x1 on wk 0, 4, then q12wk; Info: use alone or w/ non-biolog ic DMARDsshe failed humira, taltz, methotrexa te, plaquenil, cosentyxtb negative 11/17/2021 Tendinitis of left shoulder 9312474805 067999 M75.92 comes and goes worsening againthe pain radiating down the left armincreas ed neck pain and stiffnessw ith pain down into the middle backdecrea sed rotation of the left shoulderus ing heat, ice, rest, stretches without reliefhas further worsening neck and upper back painsecond nilesh to oa in the ac joint; bone on bone Fibromyalgia 093471099 M 79.7 Chronic and clinically stable. Maintain gabapentin 300 mg 3 times a day, baclofen 10 mg twice a day. Discontinu e cyclobenza michelle. She will maintain Cymbalta 60 mg a day. Weight loss encouraged . Low impact exercises encouraged . Tuberculos is screening 726907630 Z11.1 11/17/2021 neg Neck pain 91705182 M54.2 chronic and recurringf amily history of spinal stenosisse margaret left shoulder painwith decreased romneck improved with pt but not shoulder Osteoarthr itis of knee 593334982 M17.11 chronic and clinically stable. Weight loss and syncopal impact exercise encouraged . MRI findings questionab le avascular necrosis, followed by orthopedic surgery but without any need for active interventi on. celebrex keeps her stomach Generalize d osteoarthritis 841666072 M15.9 cannot tolerate nsaids due to stomach upsetmaint ains tramadol Long-term drug therapy 004093608 Z79.899 obtain labs. Follow-up in 3 months Psoriasis of scalp 91527 8008 L40.9 returning on the scalp with some significan t itching reported by patient Bilateral trochanteric bursitis [id number] 7034428 M70.61 M70.62 with large palpable bursaswill provide with bilateral GT bursa injections today as she has failed further conservati ve measures to include ice, exercise, PT, meds and sleep changes [id number] JOANNA ROJAS APRN [facility] [address] [place] [address] 08/21/2022 08:35:09 08/24/2022 12:54:35 Psoriatic arthritis 157033677 L40.50 f/u on psoriatic arthritis. scalp is increased in rashesthe ejsse was not helping her skin nor her joints at this pointshe did the best on cosentyx and requested to return to cosentyx but it has been denied despite an appeal, so she was approved for skyrizi and she is doing well on this maintain 150 mg q12wk; Info: use alone or w/ non-biolog ic DMARDsshe failed humira, taltz, methotrexa te, plaquenil, cosentyxtb negative 11/17/2021 Tendinitis of left shoulder 7546367532 086973 M75.92 comes and goes worsening againthe pain radiating down the left armincreas ed neck pain and stiffnessw ith pain down into the middle backdecrea sed rotation of the left shoulderus ing heat, ice, rest, stretches without reliefhas further worsening neck and upper back painsecond nilesh to oa in the ac joint; bone on bone Fibromyalgia M 79.7 Chronic and clinically stable. Maintain gabapentin 300 mg 3 times a day, baclofen 10 mg twice a day. Discontinu e cyclobenza michelle. She will maintain Cymbalta 60 mg a day. Weight loss encouraged . Low impact exercises encouraged . Tuberculos is screening 749854056 Z11.1 11/17/2021 neg Neck pain 89559819 M54.2 chronic and recurringf amily history of spinal stenosisse margaret left shoulder painwith decreased romneck improved with pt but not shoulder Osteoarthr itis of knee 450767617 M17.11 chronic and clinically stable. Weight loss and syncopal impact exercise encouraged . MRI findings questionab le avascular necrosis, followed by orthopedic surgery but without any need for active interventi on. celebrex keeps her stomach Psoriasis of scalp 56727 8008 L40.9 returning on the scalp with some significan t itching reported by patient Generalize d osteoarthritis 020559812 M15.9 cannot tolerate nsaids due to stomach upsetmaint ains tramadol Long-term drug therapy 527577328 Z79.899 obtain labs. Follow-up in 3 months Bilateral trochanteric bursitis 3932705280 2849724 M70.61 M70.62 with large palpable bursaswill provide with bilateral GT bursa injections today as she has failed further conservati ve measures to include ice, exercise, PT, meds and sleep changeswil l provide with mery gt bursa injections today [id number] JOANNA ROJAS APRN [facility] [address] [place] [address] 11/21/2022 10:46:57 11/26/2022 14:10:55 Psoriatic arthritis 488636160 L40.50 f/u on psoriatic arthritis. scalp is increased in rashesthe jesse was not helping her skin nor her joints at this pointshe did the best on cosentyx and requested to return to cosentyx but it has been denied despite an appeal, so she was approved for skyrizi and she is doing well on this maintain 150 mg q12wk; Info: use alone or w/ non-biolog ic DMARDsshe failed humira, taltz, methotrexa te, plaquenil, cosentyxtb negative 11/17/2021 Tendinitis of left shoulder 0441969953 050842 M75.92 comes and goes worsening againthe pain radiating down the left armincreas ed neck pain and stiffnessw ith pain down into the middle backdecrea sed rotation of the left shoulderus ing heat, ice, rest, stretches without reliefhas further worsening neck and upper back painsecond nilesh to oa in the ac joint; bone on bone Fibromyalgia M 79.7 Chronic and clinically stable. Maintain gabapentin 300 mg 3 times a day, baclofen 10 mg twice a day. Discontinu e cyclobenza michelle. She will maintain Cymbalta 60 mg a day. Weight loss encouraged . Low impact exercises encouraged . Tuberculos is screening 170877952 Z11.1 11/17/2021 neg Neck pain 42214685 M54.2 chronic and recurringf amily history of spinal stenosisse margaret left shoulder painwith decreased romneck improved with pt but not shoulder Osteoarthr itis of knee 034793732 M17.11 chronic and clinically stable. Weight loss and syncopal impact exercise encouraged . MRI findings questionab le avascular necrosis, followed by orthopedic surgery but without any need for active interventi on. celebrex keeps her stomach Psoriasis of scalp 30023 8008 L40.9 returning on the scalp with some significan t itching reported by patient Generalize d osteoarthritis 245124472 M15.9 cannot tolerate nsaids due to stomach upsetmaint ains tramadol Bilateral trochanteric bursitis 9788149370 6399630 M70.61 M70.62 with large palpable bursaswill provide with bilateral GT bursa injections today as she has failed further conservati ve measures to include ice, exercise, PT, meds and sleep changeswil l provide with mery gt bursa injections today Long-term drug therapy 693322000 Z79.899 obtain labs. Follow-up in 3 months [id number] JOANNA ROJAS APRN [facility]OL [facility] [address] [place] [address] 05/27/2023 08:07:45 05/28/2023 04:17:31 Psoriatic arthritis 342538553 L40.50 f/u on psoriatic arthritis. scalp is increased in rashesthe jesse was not helping her skin nor her joints at this pointshe did the best on cosentyx and requested to return to cosentyx but it has been denied despite an appeal, so she was approved for skyrizi and she is doing well on this maintain 150 mg q12wk; Info: use alone or w/ non-biolog ic DMARDsshe failed humira, taltz, methotrexa te, plaquenil, cosentyx, on the skyrizi she has been keeping an infection: UTI, sinus infection x 2 and ear infections so we discussed and she will stop the skyrizi and will start on rinvoq 15 mg once daily every daytb test due today Tendinitis of left shoulder 0726473489 376850 M75.92 comes and goes worsening againthe pain radiating down the left armincreas ed neck pain and stiffnessw ith pain down into the middle backdecrea sed rotation of the left shoulderus ing heat, ice, rest, stretches without reliefhas further worsening neck and upper back painsecond nilesh to oa in the ac joint; bone on bone Fibromyalgia 417745080 M 79.7 Chronic and clinically stable. Maintain gabapentin 300 mg 3 times a day, baclofen 10 mg twice a day. Discontinu e cyclobenza michelle. She will maintain Cymbalta 60 mg a day. Weight loss encouraged . Low impact exercises encouraged . Tuberculos is screening 055624281 Z11.1 11/17/2021 neg Neck pain 97839328 M54.2 chronic and recurringf amily history of spinal stenosisse margaret left shoulder painwith decreased romneck improved with pt but not shoulder Osteoarthr itis of knee 385654326 M17.11 chronic and clinically stable. Weight loss and syncopal impact exercise encouraged . MRI findings questionab le avascular necrosis, followed by orthopedic surgery but without any need for active interventi on. celebrex keeps her stomach Psoriasis of scalp 77067 8008 L40.9 returning on the scalp with some significan t itching reported by patient Generalize d osteoarthritis M15.9 cannot tolerate nsaids due to stomach upsetmaint ains tramadol Bilateral trochanteric bursitis 3927892749 5926809 M70.61 M70.62 with large palpable bursaswill provide with bilateral GT bursa injections today as she has failed further conservati ve measures to include ice, exercise, PT, meds and sleep changesno need for injections today Long-term drug therapy 899905977 Z79.899 obtain labs. Follow-up in 3 months [id number] JOANNA ROJAS APRN [facility]HE[facility]ATOL [facility] [address] [place] [address] 02/26/2023 14:45:14 02/27/2023 10:22:20 Psoriatic arthritis 062671998 L40.50 f/u on psoriatic arthritis. scalp is increased in rashesthe jesse was not helping her skin nor her joints at this pointshe did the best on cosentyx and requested to return to cosentyx but it has been denied despite an appeal, so [facility] [employer] [facility] and she is doing well on this maintain 150 mg q12wk; Info: use alone or w/ non-biolog ic DMARDsshe failed humira, taltz, methotrexa te, plaquenil, cosentyxtb negative 11/17/2021 Tendinitis of left shoulder 9838439626 605165 M75.92 comes and goes worsening againthe pain radiating down the left armincreas ed neck pain and stiffnessw ith pain down into the middle backdecrea sed rotation of the left shoulderus ing heat, ice, rest, stretches without reliefhas further worsening neck and upper back painsecond nilesh to oa in the ac joint; bone on bone Fibromyalgia 046305326 M 79.7 Chronic and clinically stable. Maintain gabapentin 300 mg 3 times a day, baclofen 10 mg twice a day. Discontinu e cyclobenza michelle. She will maintain Cymbalta 60 mg a day. Weight loss encouraged . Low impact exercises encouraged . Tuberculos is screening 493984678 Z11.1 11/17/2021 neg Neck pain 07525617 M54.2 chronic and recurringf amily history of spinal stenosisse margaret left shoulder painwith decreased romneck improved with pt but not shoulder Osteoarthr itis of knee 073712750 M17.11 chronic and clinically stable. Weight loss and syncopal impact exercise encouraged . MRI findings questionab le avascular necrosis, followed by orthopedic surgery but without any need for active interventi on. celebrex keeps her stomach Psoriasis of scalp 17723 8008 L40.9 returning on the scalp with some significan t itching reported by patient Generalize d osteoarthritis [id number] M15.9 cannot tolerate nsaids due to stomach upsetmaint ains tramadol Bilateral trochanteric bursitis [id number] M70.61 M70.62 with large palpable bursaswill provide with bilateral GT bursa injections today as she has failed further conservati ve measures to include ice, exercise, PT, meds and sleep changeswil l provide with mery gt bursa injections today Long-term drug therapy [id number] Z79.899 obtain labs. Follow-up in 3 months [id number] JOANNA ROJAS APRN [facility] [address] [place] [address] 08/28/2023 08:54:49 08/29/2023 04:10:07 Psoriatic arthritis [id number] L40.50 f/u on psoriatic arthritis. scalp is increased in rashesthe jesse was not helping her skin nor her joints at this pointshe did the best on cosentyx and requested to return to cosentyx but it has been denied despite an appeal, so she was approved for skyrizi and she is doing well on this maintain 150 mg q12wk; Info: use alone or w/ non-biolog ic DMARDsshe failed humira, taltz, methotrexa te, plaquenil, cosentyx, on the skyrizi she has been keeping an infection: UTI, sinus infection x 2 and ear infections so we discussed and she will stop the skyrizi and will start on rinvoq 15 mg once daily every daytb test due today Tendinitis of left shoulder [id number] 311948 M75.92 comes and goes worsening againthe pain radiating down the left armincreas ed neck pain and stiffnessw ith pain down into the middle backdecrea sed rotation of the left shoulderus ing heat, ice, rest, stretches without reliefhas further worsening neck and upper back painsecond nilesh to oa in the ac joint; bone on bone Fibromyalgia 039490257 M 79.7 Chronic and clinically stable. Maintain gabapentin 300 mg 3 times a day, baclofen 10 mg twice a day. Discontinu e cyclobenza michelle. She will maintain Cymbalta 60 mg a day. Weight loss encouraged . Low impact exercises encouraged . Tuberculos is screening [id number] Z11.1 11/17/2021 neg Neck pain 17086806 M54.2 chronic and recurringf amily history of spinal stenosisse margaret left shoulder painwith decreased romneck improved with pt but not shoulder Osteoarthr itis of knee 825151234 M17.11 chronic and clinically stable. Weight loss and syncopal impact exercise encouraged . MRI findings questionab le avascular necrosis, followed by orthopedic surgery but without any need for active interventi on. celebrex keeps her stomach Psoriasis of scalp 56036 8008 L40.9 returning on the scalp with some significan t itching reported by patient Generalize d osteoarthritis 638264372 M15.9 cannot tolerate nsaids due to stomach upsetmaint ains tramadol Bilateral trochanteric bursitis [id number] 3039488 M70.61 M70.62 with large palpable bursaswill provide with bilateral GT bursa injections today as she has failed further conservati ve measures to include ice, exercise, PT, meds and sleep changesno need for injections today Long-term drug therapy 770529610 Z79.899 obtain labs. Follow-up in 3 months [id number] JOANNA ROJAS APRN [facility] [address] [place] [address] 2023 09:37:55 12/02/2023 10:05:36 Psoriatic arthritis 752903340 L40.50 f/u on psoriatic arthritis. scalp is increased in rashesthe jesse was not helping her skin nor her joints at this pointshe did the best on cosentyx overall but it was denied overall she failed humira, taltz, methotrexa te, plaquenil, cosentyx, on the skyrizi she has been keeping an infection: UTI, sinus infection x 2 and ear infections she will maintain the rinvoq 15 mg daily Tendinitis of left shoulder [id number] 331408 M75.92 comes and goes worsening againthe pain radiating down the left armincreas ed neck pain and stiffnessw ith pain down into the middle backdecrea sed rotation of the left shoulderus ing heat, ice, rest, stretches without reliefhas further worsening neck and upper back painsecond nilesh to oa in the ac joint; bone on bonecontin ues with chiropract ic care Fibromyalgia M 79.7 Chronic and clinically stable. Maintain gabapentin 300 mg 3 times a day, baclofen 10 mg twice a day. Discontinu e cyclobenza michelle. She will maintain Cymbalta 60 mg a day. Weight loss encouraged . Low impact exercises encouraged . Tuberculos is screening [id number] Z11.1 08/28/2023 neg Neck pain 64014790 M54.2 chronic and recurringf amily history of spinal stenosisse margaret left shoulder painwith decreased romneck improved with pt but not shoulder Osteoarthr itis of knee 710572420 M17.11 chronic and clinically stable. Weight loss and syncopal impact exercise encouraged . MRI findings questionab le avascular necrosis, followed by orthopedic surgery but without any need for active interventi on. celebrex keeps her stomach Psoriasis of scalp 19293 8008 L40.9 returning on the scalp with some significan t itching reported by patient Generalize d osteoarthritis 360610074 M15.9 cannot tolerate nsaids due to stomach upsetmaint ains tramadol Bilateral trochanteric bursitis [id number] 6801530 M70.61 M70.62 with large palpable bursaswill provide with bilateral GT bursa injections today as she has failed further conservati ve measures to include ice, exercise, PT, meds and sleep changeswil l provide with bilateral hip injections today Long-term drug therapy 773183415 Z79.899 obtain labs. Follow-up in 3 months Fatigue 46647303 R53.83 Sweating 808746959 R61 worsening overall [id number] JOANNA ROJAS APRN [facility] [address] [place] [address] 03/02/2024 12:47:21 03/09/2024 07:05:01 Psoriatic arthritis 536270724 L40.50 f/u on psoriatic arthritis. scalp is increased in rashesthe jesse was not helping her skin nor her joints at this pointshe did the best on cosentyx overall but it was denied overall she failed humira, taltz, methotrexa te, plaquenil, cosentyx, on the skyrizi she has been keeping an infection: UTI, sinus infection x 2 and ear infections she will maintain the rinvoq 15 mg daily Tendinitis of left shoulder [id number] 313032 M75.92 comes and goes worsening againthe pain radiating down the left armincreas ed neck pain and stiffnessw ith pain down into the middle backdecrea sed rotation of the left shoulderus ing heat, ice, rest, stretches without reliefhas further worsening neck and upper back painsecond nilesh to oa in the ac joint; bone on bonecontin ues with chiropract ic care Fibromyalgia M 79.7 Chronic and clinically stable. Maintain gabapentin 300 mg 3 times a day, baclofen 10 mg twice a day. Discontinu e cyclobenza michelle. She will maintain Cymbalta 60 mg a day. Weight loss encouraged . Low impact exercises encouraged . Tuberculos is screening 492503935 Z11.1 2023 neg Neck pain 95676101 M54.2 chronic and recurringf amily history of spinal stenosisse margaret left shoulder painwith decreased romneck improved with pt but not shoulder Osteoarthr itis of knee 122198314 M17.11 chronic and clinically stable. Weight loss and syncopal impact exercise encouraged . MRI findings questionab le avascular necrosis, followed by orthopedic surgery but without any need for active interventi on. celebrex keeps her stomach Psoriasis of scalp 95108 8008 L40.9 returning on the scalp with some significan t itching reported by patient Generalize d osteoarthritis 410828338 M15.9 cannot tolerate nsaids due to stomach upsetmaint ains tramadol Bilateral trochanteric bursitis 6103591810 3544321 M70.61 M70.62 with large palpable bursaswill provide with bilateral GT bursa injections today as she has failed further conservati ve measures to include ice, exercise, PT, meds and sleep changeswil l provide with bilateral hip injections today Long-term drug therapy 154794931 Z79.899 obtain labs. Follow-up in 3 months Fatigue 07809352 R53.83 Sweating 960271601 R61 worsening overall [id number] JOANNA ROJAS APRN [facility] [address] [place] [address] 06/03/2024 09:51:03 06/08/2024 12:08:44 Psoriatic arthritis 204674768 L40.50 f/u on psoriatic arthritis. scalp is increased in rashesthe jesse was not helping her skin nor her joints at this pointshe did the best on cosentyx overall but it was denied overall she failed humira, taltz, methotrexa te, plaquenil, cosentyx, on the skyrizi she has been keeping an infection: UTI, sinus infection x 2 and ear infections she will maintain the rinvoq 15 mg daily Tendinitis of left shoulder [id number] 318336 M75.92 comes and goes worsening againthe pain radiating down the left armincreas ed neck pain and stiffnessw ith pain down into the middle backdecrea sed rotation of the left shoulderus ing heat, ice, rest, stretches without reliefhas further worsening neck and upper back painsecond nilesh to oa in the ac joint; bone on bonecontin ues with chiropract ic care Fibromyalgia 969566058 M 79.7 Chronic and clinically stable. Maintain gabapentin 300 mg 3 times a day, baclofen 10 mg twice a day. Discontinu e cyclobenza michelle. She will maintain Cymbalta 60 mg a day. Weight loss encouraged . Low impact exercises encouraged . Tuberculos is screening 297096713 Z11.1 2023 neg Neck pain 56040466 M54.2 chronic and recurringf amily history of spinal stenosisse margaret left shoulder painwith decreased romneck improved with pt but not shoulder Osteoarthr itis of knee 904985233 M17.11 chronic and clinically stable. Weight loss and syncopal impact exercise encouraged . MRI findings questionab le avascular necrosis, followed by orthopedic surgery but without any need for active interventi on. celebrex keeps her stomach Psoriasis of scalp 21198 8008 L40.9 returning on the scalp with some significan t itching reported by patient Generalize d osteoarthritis 095938595 M15.9 cannot tolerate nsaids due to stomach upsetmaint ains tramadol Bilateral trochanteric bursitis 9315562909 8598725 M70.61 M70.62 with large palpable bursaswill provide with bilateral GT bursa injections today as she has failed further conservati ve measures to include ice, exercise, PT, meds and sleep changeswil l provide with bilateral hip injections today Long-term drug therapy 383244310 Z79.899 obtain labs. Follow-up in 3 months Fatigue 06958059 R53.83 Sweating 891063842 R61 worsening overall [id number] JOANNA ROJAS APRN [facility] [address] [place] [address] 10/07/2024 08:57:43 10/11/2024 08:06:38 Psoriatic arthritis 845232131 L40.50 f/u on psoriatic arthritis. scalp is increased in rashesthe jesse was not helping her skin nor her joints at this pointshe did the best on cosentyx overall but it was denied overall she failed humira, taltz, methotrexa te, plaquenil, cosentyx, on the skyrizi she has been keeping an infection: UTI, sinus infection x 2 and ear infections she will maintain the rinvoq 15 mg daily Tendinitis of left shoulder 5542902318 709592 M75.92 comes and goes worsening againthe pain radiating down the left armincreas ed neck pain and stiffnessw ith pain down into the middle backdecrea sed rotation of the left shoulderus ing heat, ice, rest, stretches without reliefhas further worsening neck and upper back painsecond nilesh to oa in the ac joint; bone on bonecontin ues with chiropract ic care Fibromyalgia 902459889 M 79.7 Chronic and clinically stable. Maintain gabapentin 300 mg 3 times a day, baclofen 10 mg twice a day. Discontinu e cyclobenza michelle. She will maintain Cymbalta 60 mg a day. Weight loss encouraged . Low impact exercises encouraged . Tuberculos is screening 678534526 Z11.1 2023 neg Neck pain 23112144 M54.2 chronic and recurringf amily history of spinal stenosisse margaret left shoulder painwith decreased romneck improved with pt but not shoulder Osteoarthr itis of knee 419061898 M17.11 chronic and clinically stable. Weight loss and syncopal impact exercise encouraged . MRI findings questionab le avascular necrosis, followed by orthopedic surgery but without any need for active interventi on. celebrex keeps her stomach Psoriasis of scalp 51535 8008 L40.9 returning on the scalp with some significan t itching reported by patient Generalize d osteoarthritis 224246772 M15.9 cannot tolerate nsaids due to stomach upsetmaint ains tramadol Bilateral trochanteric bursitis 8515779753 4783455 M70.61 M70.62 with large palpable bursaswill provide with bilateral GT bursa injections today as she has failed further conservati ve measures to include ice, exercise, PT, meds and sleep changeswil l provide with bilateral hip injections today Long-term drug therapy 689616577 Z79.899 obtain labs. Follow-up in 3 months Fatigue 24132793 R53.83 Sweating 816658006 R61 worsening overall Hyperlipid emia screening 877852407 Z13.220 Health Concerns Section Related Observation LastModified by Organization Detai ls LastModified Time None Recorded Concern Status LastModified by Organization Details LastModified Time None Recorded Advance Directives Directive None Recorded Payers Insurance Date Sequence Insurance Name Policy Number Policy Egan Covered Member ID Egan Member ID Guarantor Name 10/11/2024 1 [employer] [id number] R Surendra García [id number] Christine García Notes Date Note Type Note Provider Name and Address Organization Details Recorded Time 08/28/2023 text/html f/u on psa; feel s a night and day difference though she has been having a lot of infections with this; left shoulder pain is recurring though improved; bilateral hip bursitis is recurring and improving with specialist wound care; has right knee pain recurring--saw ortho with no results on an injection; she has been going to the chiro and she is doing well and improved overall; having worsening pain; she currently denies bowel changes, cp, soa, rashes other than pso and fevers and all others are negative JOANNA ROJAS, [employer] ENGINE[employer] [address] [place], [address], [facility] 08/28/2023 09:37:18 2023 text/html f/u on psa; olesya ng sweating frequently; she is feeling like she is burning up; she has been on cymbalta for years without any s/e and then this is new; feels a night and day difference though she has been having a lot of infections with this; left shoulder pain is recurring though improved; bilateral hip bursitis is recurring and improving with specialist wound care; has right knee pain recurring--saw ortho with no results on an injection; she has been going to the chiro and she is doing well and improved overall; having worsening pain; she currently denies bowel changes, cp, soa, rashes other than pso and fevers and all others are negative JOANNA ROJAS APRN [address] [place], [address], [facility] 2023 10:41:02 03/02/2024 text/html pleasant 58 yo f e, here to f/u on psa; left shoulder pain is recurring though improved; bilateral hip bursitis is recurring and improving with specialist wound care; has right knee pain recurring--saw ortho with no results on an injection; she has been going to the chiro and she is doing well and improved overall; having worsening pain; she currently denies bowel changes, cp, soa, rashes other than pso and fevers and all others are negative JOANNA ROJAS APRN [address] [place], [address], [facility] 03/25/2024 12:19:05 06/03/2024 text/html pleasant 58 yo f e, here to f/u on psa; left shoulder pain is recurring though improved; bilateral hip bursitis is recurring and improving with specialist wound care, though feeling; has right knee pain recurring--saw ortho with no results on an injection; she has been going to the chiro and she is doing well and improved overall; having worsening pain; she currently denies bowel changes, cp, soa, rashes other than pso and fevers and all others are negative JOANNA ROJAS APRN [address] [place], [address], [facility] 06/03/2024 10:44:04 10/07/2024 text/html pleasant 58 yo f e, here to f/u on psa; left shoulder pain is recurring though improved; bilateral hip bursitis is recurring and improving with specialist wound care, though feeling; has right knee pain recurring--saw ortho with no results on an injection; she has been going to the chiro and she is doing well and improved overall; having worsening pain; she currently denies bowel changes, cp, soa, rashes other than pso and fevers and all others are negative JOANNA ROJAS, 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
--- OUTSIDE RECORDS SUMMARY | 2025-02-01 09:42 | XMS_ITS | Patient Health Record ---
[facility] [address] [place] [id number] Care Team Providers Care Emergency Medical Dispatcher Name Role Phone Tylor Cleary Primary Care Provider TYLOR CLEARY Unavailable Unavailable Allergies Allergen (clinical drug ingredient) Drug/Non Drug Allergy documented on EMR Reaction Allergy Type Onset Date Status homatropine / hydrocodone Hycodan stomach upset Drug Allergy Active acetaminophen / hydrocodone HYDROcodone-Acetam inophen stomach upset Drug Allergy Active Results Component Value Reference Range Notes TEN-UTI panel Reviewed date:09/07/2024 11:18:34 AM Interpretation:Negative Performing Lab: Notes/Report: Negative CBC Fingerstick (in house) Reviewed date:09/02/2024 02:48:05 PM Interpretation: Performing Lab: Notes/Report: wbc 9.5 3.5 - 10 lym 16.8 15 - 50 mid 4.5 2 - 15 gran 78.7 35 - 80 rbc 5.19 3.5 - 5.5 hgb 15.6 11.5 - 16.5 hct 47.1 35 - 55 mcv 90.8 75 - 100 mch 30.2 25 - 35 mchc 33.2 31 - 38 plat 154 100 - 400 Urinalysis - Inhouse Reviewed date:09/02/2024 02:48:17 PM Interpretation: Performing Lab: Notes/Report: Color/Clarity yellow/clear Leuk 1+ Nitrite neg Urobili 16 Protein neg pH 6.0 Blood trace-intact Sp. Gr. 1.010 Ketone neg Bili neg Gluc neg Medications Medication SIG (Take, Route, Frequency, Duration) Notes Start Date End Date Status Fosfomycin Tromethamine 3 GM 3 grams Orally every other day 01/22/2024 Active Famotidine 40 MG as directed Orally Active Clobetasol Propionate 0.05 % 1 application Externally Once a day; Duration: 10 day(s) Active QUEtiapine Fumarate 50 MG TAKE 1 TABLET BY MOUTH ONCE DAILY IN THE EVENING; Duration: 90 days Active Xhance 93 MCG/ACT 2 sprays (1 spray in each nostril) Nasally Twice a day; Duration: 30 day(s) Active dexAMETHasone 2 MG 1 tablet Orally ever y 12 hrs; Duration: 5 day(s) 09/07/2024 Not-Taking Rinvoq 15 MG 1 tablet Orally Once a day; Duration: 30 day(s) Active Zithromax Z-Matthew 250 MG as directed Orall y once daily; Duration: 5 day(s) 09/07/2024 Not-Taking Metoprolol Succinate ER 100 MG Take 1 tablet by mouth once daily; Duration: 90 Active traMADol HCl 50 MG 1 tab(s) orally ever y 8 hours Active Cefdinir 300 MG 1 cap(s) Orally Two times a day; Duration: 7 days 09/02/2024 Not-Taking Vitamin D-3 125 MCG (5000 UT) 1 cap(s) orally once a week 01/22/2022 Active hydrOXYzine HCl 25 MG Take 1 tablet by m outh twice daily as needed; Duration: 15 Not-Taking Cymbalta 60 MG 2 cap(s) orally once a day Active Cyclobenzaprine HCl 10 MG 1 tablet at be dtime as needed Orally Once a day; Duration: 30 day(s) Not-Taking Xyzal Allergy 24HR 5 MG 1 tablet in the evening Orally Once a day; Duration: 90 days Active Gabapentin 300 MG 1 cap(s) orally 3 times a day Active Topiramate 100 MG Take 1 tablet by richard th twice daily for 90 days; Duration: 90 Active Dexlansoprazole 60 MG 1 capsule Orally O nce a day Active Levothyroxine Sodium 75 MCG TAKE 1 TABLET BY MOUTH IN THE MORNING ON AN EMPTY STOMACH; Duration: 90 days Active Wegovy 1 MG/0.5ML 0.5 mL Subcutaneous weekly 01/11/2025 Active Immunizations Vaccine Route Administration Date Status Comme nts xFluzone Intradermal (18-64yrs)-trivalent ID Intradermal 05/02/2013 Administered tuberculin (ppd) ID Intradermal 10/19/2006 Administered Fluzone Quad (6months&older) IM Intramuscular 05/13/2017 Administered COVID 19 Moderna Unknown 10/26/2020 Administered COVID 19 Moderna Unknown 05/19/2021 Administered COVID 19 Moderna Unknown 03/06/2022 Administered Problems Problem Type SNOMED Code ICD Code Onset Dates Problem Status W/U Status Risk Notes Problem Sinusitis (86659546) Sinusitis (J32.9) Active confirmed Problem Vitamin D deficiency (89702671) Vitamin D deficiency (E55.9) Active confirmed Problem Essential hypertension (85695403) Essential hypertension (I10) Active confirmed Problem Morbid obesity (763238712) Morbid obesity (E66.01) Active confirmed Problem Anxiety (78889361) Anxiety (F41.9) Active confi rmed Problem Seasonal allergy (905495281) Seasonal allergies (J30.2) Active confirmed Problem Mixed anxiety and depressive disorder (380226518) Depression with anxiety (F41.8) Active confirmed Problem Overactive urinary bladder (disorder) (644442933) OAB (overactive bladder) (N32.81) Active confirmed Problem Acquired hypothyroidism (205729942) Acquired hypothyroidism (E03.9) Active confirmed Problem Migraine without aura, not refractory (918911719) Migraine without aura and without status migrainosus, not intractable (G43.009) Active confirmed Problem Gastroesophageal reflux disease (061195426) Gastroesophageal reflux disease, esophagitis presence not specified (K21.9) Active confirmed Problem Mild intermittent asthma (909236833) Mild intermittent asthma without complication (J45.20) Active confirmed Problem Panic disorder (137766159) Panic disorder (F41.0) Active confirmed Problem History of nutritional deficiency (25153415496468) History of vitamin D deficiency (Z86.39) Active confirmed Problem Vaginal bleeding (494329590) Vaginal bleeding (N93.9) Active confirmed Problem Mitral valve disorder (77275001) MVP (mitral valve prolapse) (I34.1) Active confirmed Problem Chronic sinusitis (25113495) Sinusitis, unspecified chronicity, unspecified location (J32.9) Active confirmed Problem Arthritis of right knee (8700264301879362) Arthritis of right knee (M17.11) Active confirmed Problem Obesity (614701969) Non morbid o besity (E66.9) Active confirmed Problem Seasonal allergic rhinitis (022866460) Seasonal allergic rhinitis, unspecified trigger (J30.2) Active confirmed Problem Arthritis of right knee (2938969664289753) Arthritis of knee, right (M17.11) Active confirmed Vital Signs Heart Rate 77 /min 12/18/2024 Blood pressure diastolic 76 mm Hg 12/18/2024 Height 69.50 in 12/18/2024 Blood pressure systolic 120 mm Hg 12/18/2024 Weight 247.7 lbs 12/18/2024 BMI 36.05 kg/m2 12/18/2024 Encounters Encounter Location Date Provider Diagnosis [facility] [address] [place], [place] [id number] 09/02/2024 Tylor Dixon Acute URI J06.9 ; Ac mary UTI N39.0 and Non morbid obesity E66.9 [facility] [address] [place], [place] [id number] 09/14/2024 Tylor Dixon [facility] [address] [place], [place] [id number] 12/18/2024 Tylor Dixon Seasonal allergic rhinitis, unspecified trigger J30.2 and Non morbid obesity E66.9 [facility] [address] [place], [place] [id number] 09/03/2024 Tylor Dixon [facility] [address] [place], [place] [id number] 09/07/2024 Tylor Dixon [facility] [address] [place], [place] [id number] 12/28/2024 Tylor Dixon Screening for colon cancer Z12.11 and Screening for breast cancer Z12.39 [facility] [address] [place], [place] [id number] 01/11/2025 Tylor Dixon Non morbid obesity E66.9 Assessments Encounter Date Diagnosis (ICD Code) Assessment Notes Treatment Notes Treatment Clinical Notes Section Notes 09/02/2024 Acute URI (ICD-10 - J06.9) 09/02/2024 Acute UTI (ICD-10 - N39.0) 12/18/2024 Non morbid obesity (ICD-10 - E66.9) 12/18/2024 Seasonal allergic rhinitis, unspecified trigger (ICD-10 - J30.2) 12/28/2024 Screening for breast cancer (ICD-10 - Z12.39) 12/28/2024 Screening for colon cancer (ICD-10 - Z12.11) 01/11/2025 Non morbid obesity (ICD-10 - E66.9) 09/02/2024 Non morbid obesity (ICD-10 - E66.9) Discussed starting Wegovy 09/14/2024 Other Demonstrated Wegovy pen use, first dose given today Plan Of Treatment Pending Test Test Name Order Date colonoscopy 12/28/2024 Mammogram 12/28/2024 Next Appt Details Provider Name:Tylor Louis ry, 03/25/2025 09:00:00 AM, [address], [place], [place], [id number], Insurance Providers Payer Name Payer Address Payer Phone Subscriber Number Group Number Insured Name Patient Relationship to Insured Coverage Start Date Coverage End Date [employer] [address] [place] [address] [id number] GARCÍA Spouse - patient is the spouse of the insured Medical (General) History Medical History History ICD Code MVP Childhood Asthma Mild Mucosal Thickening, 09/23/2006 Brain MRI, [id number]/2008 Migraines Vitamin D Deficiency Allergic Rhinitis Esophageal Reflux Anxiety Hypothyroidism Psoriatic Arthritis Fibromyalgia Surgical History Surgery Date(Month/Year) Tubal Ligation 1997 Cholecystectomy 1998 Nose 12/18/2007 colonoscopy 2019 Hospitalization History Reason Date(Month/Year) Leg Edema/Gastrocnemius Strain- [facility] 12/06/2012 Chest Pains- [facility] ER 01/23/2012 Back Injury- [facility] ER 10/22/2010
--- OUTSIDE RECORDS SUMMARY | 2025-02-01 09:42 | XMS_ITS | Data Portability ---
Author Organization [place] [facility] & MARLENI Nair ADMIN Address [address] [place] [id number] Care Team Providers Care Sales Operations Director Name Role Phone TYLOR REGAN Primary Care Provider Assessment Encounter Date Assessment Date Assessment LastModified by Organization Details LastModified Time 05/24/2022 05/24/2022 56-year-old haydee rowe with 1. GERD: Symptoms previously well controlled on Dexilant 60 mg. This was no longer covered by insurance and she was switched to Pantoprazole 40 mg p.o. daily. She is having more frequent breakthrough symptoms now. -Will send Rx for Dexlansoprazole 60 mg p.o. daily. If not covered by her insurance, we will need to consider increasing Pantoprazole to twice daily. -continue H2 RA for breakthrough symptoms. -Will send labs per below due to long-term PPI use. 2. Constipation: Stable -continue Linzess 3. Nausea: Intermittent. Promethazine as needed. 4. Colorectal cancer screening: Patient with colonoscopy 07/2018, repeat was recommended in 10 years at that time RTC 1 year. [email or web address] Not available 05/24/2022 17:27:01 06/21/2023 06/21/2023 57-year-old haydee rowe with 1. GERD: Well controlled on Pantoprazole 40 mg p.o. daily and famotidine PRN. -Refills provided. 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 2. Constipation: Stable -continue Linzess 3. Nausea: Intermittent. Promethazine as needed. 4. Colorectal cancer screening: Patient with colonoscopy 07/2018, repeat was recommended in 10 years at that time RTC 1 year. [email or web address] Not available 06/21/2023 09:45:33 06/18/2024 06/18/2024 58-year-old femevelyne rowe with 1. GERD: Well controlled on Dexilant 60 mg p.o. daily and famotidine PRN. -Refills provided. 2. Constipation: Stable -continue Linzess. Refills provided. 3. Nausea: Intermittent. Continue promethazine as needed. Refills provided. 4. Colorectal cancer screening: Patient with colonoscopy 07/2018, repeat was recommended in 10 years at that time RTC 1 year. [email or web address] Not available 06/18/2024 17:36:42 Plan of Treatment Reminders Order Date Submit Date Provider Last Modified By Organization Details Last Modified Time Details Appointments Establish ed Visit 15 min 2024 09:15A M Tommy Andrews PA-C Not available Not available Not available Lab CMP, serum or plasma 2021 022 [facility] (Registration ), [address] , [place], [address], 05/24/2022 17:52:11 CBC [address] (Registration ), [address] , [place], [address], 06/08/2022 13:07:07 iron panel, serum or plasma [address] (Registration ), [address] , [place], [address], 06/08/2022 13:07:07 vitamin D, 25-hydrox y, total, serum [address] (Registration ), [address] , [place], [address], 06/08/2022 13:07:08 magnesium , serum or plasma [address] (Registration ), [address] [facility], [place], [address], 06/08/2022 13:07:08 vitamin B12, serum [address] (Registration ), [address] [facility], [place], [address], 06/08/2022 13:07:08 Referral None recorded. Procedures None recorded. Surgeries None recorded. Imaging None recorded. Medication Orders Linzess 145 mcg capsule [email or web address] [facility], [address], [address], 06/18/2024 17:34:27 promethaz ine 25 mg tablet 2023 024 [facility], [address], [address], 06/18/2024 09:35:33 dexlansop razole 60 mg capsule,b iphase delayed release 2023 024 [facility], [address], [address], 06/18/2024 09:35:36 famotidin e 20 mg tablet 2023 024 [facility], [address], [address], 06/18/2024 09:35:35 Linzess 145 mcg capsule 2022 023 [facility], [address] [place] [address], [address], 06/21/2023 09:42:11 promethaz ine 25 mg tablet 2022 023 [facility], [address], [address], 06/21/2023 09:42:10 dexlansop razole 60 mg capsule,b iphase delayed release 2022 023 [facility], [address], [address], 06/21/2023 09:42:14 famotidin e 20 mg tablet 2022 023 [facility], [address], [address], 06/21/2023 09:42:12 Linzess 145 mcg capsule 2021 022 [facility], [address], [address], 05/24/2022 15:42:52 promethaz ine 25 mg tablet 2021 022 [facility], [address], [address], 05/24/2022 15:42:48 dexlansop razole 60 mg capsule,b iphase delayed release 2021 022 [facility], [address], [address], 05/24/2022 15:41:45 famotidin e 20 mg tablet 2021 022 [facility], [address], [address], 05/24/2022 15:44:40 Patient TargetsNo targets recorded. Patient InstructionsNo instructions recorded. Reason for Referral None Reported. Results Created Date Observation Date Name Description Value Unit Range Abnormal Flag Note LastModifiedBy Organization Detail LastModifiedTime 05/24/20 22 05/24/2022 CBC AUTO NO DIFF (HEMO GRAM) WBC 9.8 K/uL 4.0-10 .5 Not Available [facility] ([facility]) [address] , [place], [address], 05/24/2022 16:43:44 05/24/20 22 05/24/2022 CBC AUTO NO DIFF (HEMO GRAM) RBC 4.2 M/mm3 4.2-6. 4 Not Available [facility] ([facility]) [address], [place], [address], 05/24/2022 16:43:44 05/24/20 22 05/24/2022 CBC AUTO NO DIFF (HEMO GRAM) HGB 12.6 gm/dL 12.5-1 6.0 Not Available [facility] ([facility]) [address], [place], [address], 05/24/2022 16:43:44 05/24/20 22 05/24/2022 CBC AUTO NO DIFF (HEMO GRAM) HCT 39.7 % 37.0-4 7.0 Not Available [facility] ([facility]) [address], [place], [address], 05/24/2022 16:43:44 05/24/20 22 05/24/2022 CBC AUTO NO DIFF (HEMO GRAM) MCV 93.9 fL 78-100 Not Available [facility] ([facility]) [address], [place], [address], 05/24/2022 16:43:44 05/24/20 22 05/24/2022 CBC AUTO NO DIFF (HEMO GRAM) MCH 29.8 pg 27-31 Not Available [facility] ([facility]) [address], [place], [address], 05/24/2022 16:43:44 05/24/20 22 05/24/2022 CBC AUTO NO DIFF (HEMO GRAM) MCHC 31.7 g/dL 32-36 low Not Available [facility] ([facility]) [address], [place], [address], 05/24/2022 16:43:44 05/24/20 22 05/24/2022 CBC AUTO NO DIFF (HEMO GRAM) RDW 13.8 % 11.5-1 4.0 Not Available [facility] ([facility]) [address], [place], [address], 05/24/2022 16:43:44 05/24/20 22 05/24/2022 CBC AUTO NO DIFF (HEMO GRAM) platelet count 334 K/uL 150-45 0 Not Available [facility] ([facility]) [address], [place], [address], 05/24/2022 16:43:44 05/24/20 22 05/24/2022 CBC AUTO NO DIFF (HEMO GRAM) manual differential NO Not Available [facility] ([facility]) [address], [place], [address], 05/24/2022 16:43:44 05/24/20 22 05/24/2022 COMP METAB OLIC PANEL sodium 141 mmol/ L 136-14 5 Not Available [facility] ([facility]) [address], [place], [address], 05/24/2022 17:52:11 05/24/20 22 05/24/2022 COMP METAB OLIC PANEL potassium 3.6 mmol/ L 3.6-5. 0 Not Available [facility] ([facility]) [address], [place], [address], 05/24/2022 17:52:11 05/24/20 22 05/24/2022 COMP METAB OLIC PANEL chloride 107 mmol/ L 98-107 Not Available [facility] ([facility]) [address] [place], [address], 05/24/2022 17:52:11 05/24/20 22 05/24/2022 COMP METAB OLIC PANEL carbon dioxide 27.6 mmol/ L 21.0-3 2.0 Not Available [facility] ([facility]) [address] , [place], [address], 05/24/2022 17:52:11 05/24/20 22 05/24/2022 COMP METAB OLIC PANEL anion gap 10.0 Not Available [facility] ([facility]) [address] , [place], [address], 05/24/2022 17:52:11 05/24/20 22 05/24/2022 COMP METAB OLIC PANEL glucose 87 mg/dL 70-120 Not Available [facility] ([facility]) [address] , [place], [address], 05/24/2022 17:52:11 05/24/20 22 05/24/2022 COMP METAB OLIC PANEL BUN 8 mg/dL 7-18 Not Available [facility] ([facility]) [address] , [place], [address], 05/24/2022 17:52:11 05/24/20 22 05/24/2022 COMP METAB OLIC PANEL creatinine 0.9 mg/dL 0.6-1. 3 Not Available [facility] ([facility]) [address] , [place], [address], 05/24/2022 17:52:11 05/24/20 22 05/24/2022 COMP METAB OLIC PANEL glomerular filtration rate >60 mlper min 60- Not Available [facility] ([facility]) [address] , [place], [address], 05/24/2022 17:52:11 05/24/20 22 05/24/2022 COMP METAB OLIC PANEL total protein 7.8 g/dL 6.4-8. 2 Not Available [facility] ([facility]) [address] , [place], [address], 05/24/2022 17:52:11 05/24/20 22 05/24/2022 COMP METAB OLIC PANEL albumin 3.8 g/dL 3.4-5. 0 Not Available [facility] ([facility]) [address], [place], [address], 05/24/2022 17:52:11 05/24/20 22 05/24/2022 COMP METAB OLIC PANEL globulin 4.0 Not Available [facility] ([facility]) [address], [place], [address], 05/24/2022 17:52:11 05/24/20 22 05/24/2022 COMP METAB OLIC PANEL alb/glob ratio 1.0 0.7-2 Not Available [facility] ([facility]) [address] , [place], [address], 05/24/2022 17:52:11 05/24/20 22 05/24/2022 COMP METAB OLIC PANEL calcium 8.6 mg/dL 8.5-10 .5 Not Available [facility] ([facility]) [address] , [place], [address], 05/24/2022 17:52:11 05/24/20 22 05/24/2022 COMP METAB OLIC PANEL bilirubin total 0.38 mg/dL 0.10-1 .00 Not Available [facility] ([facility]) [address] , [place], [address], 05/24/2022 17:52:11 05/24/20 22 05/24/2022 COMP METAB OLIC PANEL AST (SGOT) 2 U/L 0-37 Not Available [facility] ([facility]) [address] , [place], [address], 05/24/2022 17:52:11 05/24/20 22 05/24/2022 COMP METAB OLIC PANEL ALT (SGPT) 21 U/L 0-65 Not Available [facility] ([facility]) [address] , [place], [address], 05/24/2022 17:52:11 05/24/20 22 05/24/2022 COMP METAB OLIC PANEL alk phosphatase 71 U/L 46-116 Not Available [facility] ([facility]) [address] [facility], [place], [address], 05/24/2022 17:52:11 05/24/20 22 05/24/2022 MAGNE SIUM magnesium 1.9 mg/dL 1.8-2. 4 Not Available [facility] ([facility]) [address] [facility], [place], [address], 05/24/2022 17:52:13 05/24/20 22 05/24/2022 VITAM IN D, 25-HY DROXY vitamin D, 25-hydroxy 70.3 NG/mL 30.0-1 00.0 Not Available [facility] ([facility]) [address] [facility], [place], [address], 05/24/2022 18:06:54 05/24/20 22 05/24/2022 VITAM IN B12 vitamin B12 722 pg/mL 193-98 6 *Note : Refer alida hull New Test Metho d in use. Not Available [facility] ([facility]) [address] [facility], [place], [address], 05/24/2022 18:12:35 05/24/20 22 05/24/2022 IRON STUDY (IRON /TIBC /%SAT ) iron 60 mcg/m L 40-180 Not Available [facility] ([facility]) [address] [facility], [place], [address], 05/24/2022 18:21:32 05/24/20 22 05/24/2022 IRON STUDY (IRON /TIBC /%SAT ) TIBC 276 mcg/d L 250-45 0 Not Available [facility] ([facility]) [address] [facility], [place], [address], 05/24/2022 18:21:32 11/05/03 2205/24/2022 IRON STUDY (IRON /TIBC /%SAT ) %sat 22 15-55 Not Available [facility] ([facility]) [address] [facility], [place], [address], 05/24/2022 18:21:32 Result Notes None recorded. Problems Name Problem SNOMED Code Status Onset Date Resolution Date Notes Provider Name and Address Organization Details Recorded Time Nausea 222902111 Active 2021 Tommy Andrews PA-C [address] , [place], [address] , [place] [facility] & [place] 2 15:36:22 Gastroesophag eal reflux disease 652003077 Active 2021 Tommy Andrews PA-C [address], [place], [address] , [place] [facility] & [place] 2 15:37:49 Chronic idiopathic constipation 90209436 Active 2021 Tommy nAdrews PA-C [address] , [place], [address] , [place] [facility] & [place] 2 15:41:47 Laryngopharyn geal reflux 893838708 Active 2021 Tommy Andrews PA-C [address] , [place], [address] , [place] [facility] & [place] 2 17:23:34 Problem Notes None recorded. Medical Equipment None Reported. Allergies Allergen ID Allergen Name Allergen Category Reaction Reaction Severity Criticality Documentation Date Start Date Code Code System Note Provider Name and Address Organization Details Recorded Time 56875 codeine medicatio n Not available Not available Not available 05/24/2022 2670 RxNorm Carmen Holly [facility] [place] [facility] & [place] 2 15:01:44 Medications Name Sig Start Date Stop Date Status Note LastModified by Organization Details LastModified Time cyclobenzap rine 10 mg tablet TAKE 1 TABLET BY MOUTH TWICE DAILY active Not Available Not Available No t Available amoxicillin 500 mg capsule TAKE 2 CAPSULES BY MOUTH EVERY 12 HOURS FOR 7 DAYS 12/05 /2024 completed Not Available Not Available Not Available promethazin e-DM 6.25 mg-15 mg/5 mL oral syrup TAKE 5 ML BY MOUTH EVERY 6 HOURS NEEDED FOR COUGH 06/15 completed Not Available Not Available Not Available pilocarpine 5 mg tablet TAKE 1 TABLET BY MOUTH THREE TIMES DAILY 06/15 completed Not Available Not Available Not Available nystatin 100,000 unit/mL oral suspension TAKE 10 ML BY MOUTH THREE TIMES DAILY FOR 10 DAYS 06/15 completed Not Available Not Available Not Available doxycycline hyclate 100 mg capsule active Not Available Not Available N ot Available ketoconazol e 2 % shampoo APPLY TOPICALLY TO AFFECTED AREA(S), LATHER, LEAVE IN PLACE FOR 5 MINUTES THEN RINSE OFF WITH WATER ONCE DAILY active Not Available Not Available No t Available azithromyci n 250 mg tablet TAKE 2 TABLETS BY MOUTH ON DAY 1, AND THEN TAKE 1 TABLET BY MOUTH ONCE A DAY ON DAY 2 THROUGH DAY 5 06/15 completed Not Available Not Available Not Available fosfomycin tromethamin e 3 gram oral packet TAKE 1 BY MOUTH EVERY OTHER DAY active Not Available Not Available No t Available benzonatate 200 mg capsule TAKE 1 CAPSULE BY MOUTH THREE TIMES DAILY NEEDED 05/24 completed Not Available Not Available Not Available famotidine 40 mg tablet Take 1 tablet every day by oral route. active Not Available Not Available No t Available metoprolol succinate ER 100 mg tablet,exte nded release 24 hr TAKE 1 TABLET BY MOUTH ONCE DAILY active Not Available Not Available No t Available ciprofloxac in 500 mg tablet TAKE 1 TABLET BY MOUTH EVERY 12 HOURS FOR 10 DAYS 05/24 completed Not Available Not Available Not Available tramadol 50 mg tablet TAKE 1 TABLET BY MOUTH THREE TIMES DAILY active Not Available Not Available No t Available triamcinolo ne acetonide 0.1 % topical cream APPLY TO SKIN BEHIND THE EARS 3 TIMES DAILY NEEDED active Not Available Not Available No t Available levothyroxi ne 75 mcg tablet TAKE 1 TABLET BY MOUTH ONCE DAILY IN THE MORNING ON EMPTY STOMACH active Not Available Not Available No t Available famotidine 20 mg tablet Take 1 tablet every day by oral route at bedtime for 90 days. active Not Available Not Available No t Available meclizine 25 mg tablet TAKE 1 TABLET BY MOUTH THREE TIMES DAILY NEEDED 06/15 completed Not Available Not Available Not Available baclofen 10 mg tablet TAKE 1 TABLET BY MOUTH AT 8AM AND 8PM 05/24 completed Not Available Not Available Not Available benzonatate 100 mg capsule TAKE 1 CAPSULE BY MOUTH TWICE DAILY NEEDED FOR COUGH 06/15 completed Not Available Not Available Not Available cephalexin 500 mg capsule TAKE 1 CAPSULE BY MOUTH 4 TIMES DAILY FOR 7 DAYS 06/18 completed Not Available Not Available Not Available pantoprazol e 40 mg tablet,jonathon yed release TAKE 1 TABLET BY MOUTH TWICE DAILY BEFORE MEAL(S) 06/15 completed Not Available Not Available Not Available promethazin e 25 mg tablet Take 1 tablet every 12 hours by oral route for 30 days. active Not Available Not Available No t Available gabapentin 300 mg capsule TAKE 1 CAPSULE BY MOUTH IN THE MORNING AND IN THE AFTERNOON AND TAKE 2 CAPSULES IN THE EVENING active Not Available Not Available No t Available montelukast 10 mg tablet TAKE 1 TABLET BY MOUTH ONCE DAILY IN THE EVENING FOR 90 DAYS 06/15 completed Not Available Not Available Not Available hydroxyzine HCl 25 mg tablet TAKE 1 TABLET BY MOUTH TWICE DAILY NEEDED active Not Available Not Available No t Available azelastine 137 mcg (0.1 %) nasal spray USE 1 TO 2 SPRAY(S) IN EACH NOSTRIL ONCE DAILY DIRECTED FOR BREAKTHRO UGH RHINITIS SYMPTOMS (CAN INCREASE TO TWICE DAILY NEEDED) active Not Available Not Available No t Available hydroxychlo roquine 200 mg tablet TAKE 1 TABLET BY MOUTH ONCE DAILY 06/15 completed Not Available Not Available Not Available cefuroxime axetil 500 mg tablet TAKE 1 TABLET BY MOUTH EVERY 12 HOURS 06/18 completed Not Available Not Available Not Available levofloxaci n 500 mg tablet TAKE 1 TABLET BY MOUTH EVERY 24 HOURS FOR 7 DAYS 05/21 completed Not Available Not Available Not Available levofloxaci n 750 mg tablet TAKE 1 TABLET BY MOUTH EVERY 24 HOURS FOR 7 DAYS 06/15 completed Not Available Not Available Not Available methylpredn isolone 4 mg tablets in a dose pack 06/15 completed Not Available Not Available Not Available albuterol sulfate HFA 90 mcg/actuati on aerosol inhaler INHALE 2 PUFFS BY MOUTH EVERY 4 TO 6 HOURS NEEDED FOR WHEEZING, COUGHING OR SHORTNESS OF BREATH MAY USE 15 MINUTES BEFORE PHYSICAL ACTIVITY USE WITH A SPACER active Not Available Not Available No t Available bromphenira mine-pseudo ephedrine-D M 2 mg-30 mg-10 mg/5 mL oral syrup TAKE 5 TO 10 ML BY MOUTH 4 TIMES DAILY 05/24 completed Not Available Not Available Not Available clobetasol 0.05 % scalp solution APPLY SOLUTION TOPICALLY TO AFFECTED AREA TWICE DAILY IN THE MORNING IN THE EVENING active Not Available Not Available No t Available cefdinir 300 mg capsule 06/15 completed Not Available Not Available Not Available topiramate 100 mg tablet TAKE 1 TABLET BY MOUTH TWICE DAILY FOR 90 DAYS active Not Available Not Available No t Available fluticasone propionate 50 mcg/actuati on nasal spray,suspe nsion USE 1 TO 2 SPRAY(S) IN EACH NOSTRIL ONCE DAILY active Not Available Not Available No t Available amoxicillin 875 mg-potassiu m clavulanate 125 mg tablet TAKE 1 TABLET BY MOUTH EVERY 12 HOURS 06/15 completed Not Available Not Available Not Available ORTHOVISC 30 mg/2 mL intra-artic ular syringe active Not Available Not Available Not Available clobetasol 0.05 % shampoo APPLY A THIN LAYER TOPICALLY ONCE DAILY TO DRY SCALP, LEAVE IN PLACE 15 MINUTES, THEN LATHER AND RINSE active Not Available Not Available No t Available nitrofurant oin monohydrate /macrocryst als 100 mg capsule TAKE 1 CAPSULE BY MOUTH EVERY 12 HOURS WITH FOOD FOR 5 DAYS 06/15 completed Not Available Not Available Not Available duloxetine 60 mg capsule,del ayed release TAKE 1 CAPSULE BY MOUTH ONCE DAILY active Not Available Not Available No t Available levothyroxi ne active Not Available Not Available Not Available sodium fluoride 1.1 %-potassium nitrate 5 % dental paste BRUSH WITH PASTE EACH NIGHT. SPIT OUT, DO NOT RINSE. active Not Available Not Available No t Available quetiapine 50 mg tablet TAKE 1 TABLET BY MOUTH ONCE DAILY IN THE EVENING active Not Available Not Available No t Available cholecalcif neena (vitamin D3) 1,250 mcg (50,000 unit) capsule TAKE 1 CAPSULE BY MOUTH ONCE A WEEK 05/21 completed Not Available Not Available Not Available levocetiriz ine 5 mg tablet TAKE 1 TABLET BY MOUTH ONCE DAILY active Not Available Not Available No t Available diclofenac 1 % topical gel APPLY 2 GRAMS TO THE AFFECTED AREA(S) 4 TIMES PER DAY active Not Available Not Available No t Available dexlansopra zole 60 mg capsule,bip hase delayed release Take 1 capsule every day by oral route before meals for 90 days. active Not Available Not Available No t Available Myrbetriq 25 mg tablet,exte nded release TAKE 1 TABLET BY MOUTH ONCE DAILY 06/15 completed Not Available Not Available Not Available Linzess 145 mcg capsule Take 1 capsule every day by oral route before meals for 90 days. active Not Available Not Available No t Available Taltz Syringe 80 mg/mL subcutaneou s 05/24 completed Not Available Not Available Not Available Xhance 93 mcg/actuati on breath activated aerosol active Not Available Not Available Not Available Rinvoq 15 mg tablet,exte nded release active Not Available Not Available Not Available Skyrizi 150 mg/mL subcutaneou s pen injector 06/15 completed Not Available Not Available Not Available Vitals Date Recorded Body weight Provider Name an d Address Organization Details Last Updated DateTime 05/24/2022 28244.71 g Carmen Holly [facility] [place] 05/24/2022 14:59:29 Date Recorded Body height Body mass index (BMI) Body weight Heart rate Heart rate Oxygen saturation Oxygen saturation in Arterial blood by Pulse oximetry Body temperature Systolic And Diastolic Provider Name and Address Organization Details Last Updated DateTime 4 175.26 cm 42 kg/m2 260806. 39 g 79 /min 78 /min 97 % 97 % 98.1 [degF] 155/90 mm[Hg] Cornelia Kowalski [facility] & [place] 4 09:08:44 Date Recorded Body weight Body mass index (BMI) Body height Body temperature Oxygen saturation Oxygen saturation in Arterial blood by Pulse oximetry Heart rate Heart rate Systolic And Diastolic Provider Name and Address Organization Details Last Updated DateTime 3 577531. 55 g 39.7 kg/m2 175.26 cm 98.2 [degF] 98 % 98 % 93 /min 99 /min 126/88 mm[Hg] Mick Ford [facility] [place] 3 09:24:08 Social History None recorded. Functional Status None recorded. Mental Status None recorded. Family History Relationship Description Onset Age of this Age Resolved Age Notes LastModified by Organization Details LastModified Time Mother Seizure disorder pt. added direct ly (06/20) [email or web address] Not available 06/20/2023 11:36:30 Mother Hypertensive disorder pt. added direct ly (06/20) [email or web address] Not available 06/20/2023 11:36:47 Medical History No medical history recorded. Gynecological HistoryNo gynecological history recorded. Obstetrics History GPAL:G 0 P 0 0 0 0 Past Encounters Encounter ID Performer Location Encounter Start Date Encounter Closed Date Diagnosis/Indication Diagnosis SNOMED-CT Code Diagnosis ICD10 Code Diagnosis Note [id number] Tommy Andrews PA-C [facility] [place] [id number] 05/24/2022 14:54:16 05/24/2022 15:45:08 Nausea 615099433 R11.0 Gastroesop hageal reflux disease 022834735 K21.9 Long-term current use of proton pump inhibitor therapy 9209483956 86944599 Z79.899 Chronic id iopathic constipation 34093243 K59.04 Laryngopha ryngeal reflux 926811215 K21.9 [id number] Tommy Andrews PA-C [facility] [address] [address] 06/21/2023 09:01:28 06/21/2023 09:42:53 Nausea 168196368 R11.0 Gastroesop hageal reflux disease 462331528 K21.9 Long-term current use of proton pump inhibitor therapy 5377923891 13814243 Z79.899 Chronic id iopathic constipation 44762853 K59.04 Laryngopha ryngeal reflux 590497239 K21.9 [id number] Tommy Andrews PA-C [facility] [facility] [address] [address] 06/18/2024 09:01:15 06/18/2024 09:39:37 Nausea [id number] R11.0 Gastroesop hageal reflux disease [id number] K21.9 Long-term current use of proton pump inhibitor therapy [id number] Z79.899 Chronic id iopathic constipation [id number] K59.04 Laryngopha ryngeal reflux [id number] K21.9 Health Concerns Section Related Observation LastModified by Organization Detai ls LastModified Time None Recorded Concern Status LastModified by Organization Details LastModified Time None Recorded Advance Directives Directive None Recorded Payers Insurance Date Sequence Insurance Name Policy Number Policy Egan Covered Member ID Egan Member ID Guarantor Name 06/15/2024 1 [id number] [id number] Surendra K Ricky [id number] Christine García Notes Date Note Type Note Provider Name and Address Organization Details Recorded Time 05/24/2022 text/html Ms. García is a very pleasant 56-year-old female who presents to the office today for 1-year follow-up regarding chronic idiopathic constipation and GERD. Cecilia has continued to work very well for her. She reports regular bowel movements without over constipation or diarrhea. She was previously taking Dexilant with good control of her GERD/LPR symptoms. Unfortunately, her insurance would no longer cover Dexilant and she had to be switched to Pantoprazole 40 mg p.o. once daily. This has not controlled her symptoms as well as the Dexilant. She is needing to take Pepcid more frequently to manage her breakthrough heartburn. She has occasional nausea which responds well to Promethazine, although she does not need this often. She denies vomiting, hematemesis, melena, or hematochezia. Tommy Andrews PA-C [id number] [facility], [place], [address], [place] - [place] - [place] & [place] 05/24/2022 17:27:25 06/21/2023 text/html PREVIOUS (): Ms. García is a very pleasant 56-year-old female who presents to the office today for 1-year follow-up regarding chronic idiopathic constipation and GERD. Cecilia has continued to work very well for her. She reports regular bowel movements without over constipation or diarrhea. She was previously taking Dexilant with good control of her GERD/LPR symptoms. Unfortunately, her insurance would no longer cover Dexilant and she had to be switched to Pantoprazole 40 mg p.o. once daily. This has not controlled her symptoms as well as the Dexilant. She is needing to take Pepcid more frequently to manage her breakthrough heartburn. She has occasional nausea which responds well to Promethazine, although she does not need this often. She denies vomiting, hematemesis, melena, or hematochezia. CURRENT (06/18/23): Ms. García returns to the office today for 1 year follow-up regarding GERD, constipation, and occasional nausea. She is doing very well. Her reflux symptoms are well managed on Pantoprazole once daily. She intermittently uses famotidine for rare breakthrough symptoms. She has also continued Linzess 145 mcg daily with good regulation of her bowel habits. She reports mild nausea at times she has nasal drainage, but this is not very often. Tommy Andrews PA-C [address], [place], [address], [facility] 06/21/2023 09:45:45 06/18/2024 text/html CURRENT (06/18/24 ): Ms. García presents to the office today for 1 year follow-up regarding GERD and constipation. She is doing very well. She has continued Dexilant with good effect. She is using Famotidine occasionally for breakthrough symptoms. She has rare nocturnal regurgitation if she eats late. She has continued Linzess 145 mcg daily. She reports regular bowel habits currently. She takes Rinvoq for arthritis. She has rare nausea for which she uses promethazine with good effect. Tommy Andrews PA-C [address], [place], [address], [facility] 06/18/2024 17:36:54 OBGyn Episode No OBEpisode recorded.
== END 2025-02-01 23:59 | disposition home or self-care (01) ==
LOC: RAD 09:37
PROVIDERS: PCP Family Medicine; Visit Provider Family Medicine
DX: Z12.31 Encounter for screening mammogram for malignant neoplasm of breast (principal); R92.333 Mammographic heterogeneous density, bilateral breasts
CPT/HCPCS: 77063; 77067

== ENCOUNTER 2025-03-22 09:53 | Day surgery (SDC) | payer BC, SELFPAY ==
--- NOTE | 2025-03-18 07:21 | EXP.HP ---
History of Present Illness *Admission Date: 03/22/25 *History of present illness: Mrs. García is a 59-year-old female who is here for screening colonoscopy. The examination is deemed medically necessary for screening colonoscopy. The patient has been seen, interviewed and examined prior to the procedure by both myself and the anesthesia provider. [facility] Disclaimer: The information contained in this section may have been updated after the patient was seen, as this information can be updated by other users. Medical History History of mitral valve prolapse Hypertension Chest pain Retraction of tympanic membrane Psoriatic arthritis Fibromyalgia Surgical History History of tubal ligation History of cholecystectomy No significant past surgical history Family History Family/Other No significant family history Other Family history of Alzheimer's disease Social History Smoking Status: Never smoker alcohol intake: never substance use type: denies use current occupational status: other Travel in the last 8 weeks?: None household members: family housing: house Have you lived/traveled outside US in past 30 days?: No Contact w/someone who lives/traveled outside US past 30 days?: No Exposure to someone with infectious disease in past 14 days?: No Do you have a fever (greater than 100.4 F or 38 C)?: No Have you tested positive for COVID-19?: No Exposed to someone with COVID-19 in past 14 days?: No Do you have a sore throat?: No Do you have a cough?: No Do you have any weakness?: No Do you have any diarrhea?: No Are you experiencing any unusual bleeding?: No Do you have any muscle aches/pain?: No Do you have any abdominal pain?: No Are you experiencing loss of taste or smell?: No Other Medical History Have you received the Flu Vaccine for this season: No Have you received the Pneumonia Vaccine: No Review of Systems Review of Systems Review of systems (narrative): Negative *Cardiovascular Comments: Negative *Gastrointestinal Comments: Negative *Genitourinary Comments: Negative *Musculoskeletal Comments: Negative *Neurologic Comments: Negative Meds Home Medications and Allergies Home Medications ?Medication ?Instructions ?Recorded ?Confirmed ?Type cholecalciferol (vitamin D3) 125 5,000 unit PO QDAY 07/28/17 03/22/25 History mcg (5,000 unit) capsule duloxetine 60 mg capsule,delayed 60 mg PO QDAY 07/28/17 03/22/25 History release gabapentin 300 mg capsule 300 mg PO TID 07/28/17 03/22/25 History metoprolol succinate 100 mg 100 mg PO BID 07/28/17 03/22/25 History tablet,extended release 24 hr topiramate 100 mg capsule,extended 100 mg PO QDAY 07/28/17 03/22/25 History release 24 hr linaclotide 72 mcg capsule 72 mcg PO DAILY 09/04/18 03/22/25 History (Linzess) quetiapine 50 mg tablet,extended 50 mg PO QPM 06/18/19 03/22/25 History release 24 hr cyclobenzaprine 10 mg tablet 10 mg PO TID 12/06/22 03/22/25 History famotidine 40 mg tablet 40 mg PO NEEDED PRN Gastric 12/06/22 03/22/25 History Reflux hydroxyzine HCl 25 mg tablet 25 mg PO BID PRN Anxiety 12/06/22 03/22/25 History upadacitinib 15 mg tablet,extended 15 mg PO DAILY 09/06/23 03/22/25 History release 24 hr (Rinvoq) azelastine 137 mcg (0.1 %) nasal 2 spray intranasal BID #30 mL 09/23/23 03/22/25 Rx spray dexlansoprazole 60 mg 60 mg PO DAILY 09/23/23 03/22/25 History capsule,biphase delayed release levocetirizine 5 mg tablet (Xyzal) 5 mg PO DAILY #30 tabs 09/23/23 03/22/25 Rx promethazine-DM 6.25 mg-15 mg/5 mL 5 ml PO Q6H PRN Cough #240 mL 05/08/24 03/22/25 Rx oral syrup sodium,potassium,mag sulfates 17.5 See Rx Instructions PO .COMPLEX 03/08/25 03/18/25 Rx gram-3.13 gram-1.6 gram oral soln #354 mL (Suprep Bowel Prep Kit) semaglutide (weight loss) 2.4 2.4 mg SQ WEEKLY 03/18/25 03/22/25 History mg/0.75 mL subcutaneous pen injector (Wegovy) clobetasol 0.05 % scalp solution 1 applic topical NEEDED PRN 03/22/25 03/22/25 History Skin Cleansing levocetirizine 5 mg tablet (Xyzal) 5 mg PO DAILY 03/22/25 03/22/25 History levothyroxine 75 mcg tablet 75 mcg PO DAILY 03/22/25 03/22/25 History New Prescriptions to Start Prescriptions: Allergies Allergy/AdvReac Type Severity Reaction Status Date / Time hydroxychloroquine Allergy Hives Verified 03/22/25 10:05 codeine AdvReac Mild Drowsy Verified 03/22/25 10:05 Exam *Routine HEENT Exam Head: Present normocephalic Eye: Present EOMI and PERRL ENT: Present mucous membranes moist *Routine Neck Exam Neck: Present supple *Routine Respiratory Exam Respiratory: Present CTA bilaterally *Routine Cardiovascular Exam Cardiovascular: Present RRR *Routine Abdominal Exam Abdominal: Present soft and normoactive bowel sounds; Absent tenderness *Routine Rectal Exam Rectal:: deferred *Routine Genitalia Exam Genitalia:: deferred *Routine Extremities Exam Extremities: Absent cyanosis, clubbing or edema *Routine Skin Exam Skin: Present warm; Absent rash *Routine Neurological Exam Neurological: Present alert and oriented X3 Assessment and Plan *Assessment and plan (1) Screening for colon cancer: Status: Acute Category: Medical Code(s): Z12.11 - Encounter for screening for malignant neoplasm of colon Plan A/P: 1. Screening for colon cancer is the preprocedural diagnosis. The patient will be anesthetized/sedated using MAC sedation. The patient has been seen and examined. Cardiac and lung assessment prior to the examination is stable. Proceed with planned screening colonoscopy.
[2025-03-18 14:29] VITALS: BMI 34.7
[2025-03-22 10:20] VITALS: BP 149/67; PULSE 89; RESP 18; TEMP 36.6; O2SAT 98
[2025-03-22] MEDS: LACTATED RINGERS 1000ML 1,000 ML 50 ML IV (10:30)
--- NOTE | 2025-03-22 10:40 | P.PNANES_ITS ---
[facility] Disclaimer: The information contained in this section may have been updated after the patient was seen, as this information can be updated by other users. Medical History History of mitral valve prolapse Hypertension Chest pain Retraction of tympanic membrane Psoriatic arthritis Fibromyalgia Surgical History History of tubal ligation History of cholecystectomy No significant past surgical history Family History Family/Other No significant family history Other Family history of Alzheimer's disease Social History Smoking Status: Never smoker alcohol intake: never substance use type: denies use current occupational status: other Travel in the last 8 weeks?: None household members: family housing: house Have you lived/traveled outside US in past 30 days?: No Contact w/someone who lives/traveled outside US past 30 days?: No Exposure to someone with infectious disease in past 14 days?: No Do you have a fever (greater than 100.4 F or 38 C)?: No Have you tested positive for COVID-19?: No Exposed to someone with COVID-19 in past 14 days?: No Do you have a sore throat?: No Do you have a cough?: No Do you have any weakness?: No Do you have any diarrhea?: No Are you experiencing any unusual bleeding?: No Do you have any muscle aches/pain?: No Do you have any abdominal pain?: No Are you experiencing loss of taste or smell?: No [facility] Anesthesia Checklist Patient Identification Patient Identification: Arm Band and Verbal (Name & ) Structural Data Admitted From: Home Planned Operative Procedure/s: Colonoscopy Consent for Planned Operative Procedure(s) Verified: Yes Verified Documents: Surgical Consent NPO Status Verified Time NPO: 00:00 Chart Verification Results Verified: None Additional verifications Anesthesia Reactions: No Airway Assessment Mallampati Score:: Class II C-Spine Mobility Assessed: Yes TMJ Mobility Assessed: Yes Dentition: Good Dentition Neurological Assessment Level of Consciousness: Awake, Alert and Appropriate Hx Seizures: No Numbness or tingling in extremities: No Anesthesia Plan Anesthesia Risk discussed: Yes Anesthesia Plan: Verified ASA Class: II Anesthesia Type: MAC
--- NOTE | 2025-03-22 11:11 | HMH.PROCNOTE ---
[facility] Procedure Note Date: 03/22/25 Time: 11:38 Procedure Note:: Colonoscopy Procedure Report: Colonoscopy Endoscopist: Leo Olivera II, MD Referring physician: Abel Cleary MD Date of Procedure: March 22, 2025 Equipment: Olympus [id number] adult colonoscope Sedation: MAC sedation Indication: Mrs. García is a 59-year-old female who is here for screening/surveillance colonoscopy. The patient reports no abdominal pain, weight loss, change in her bowel habits or rectal bleeding. She does state that her maternal grandfather had colon cancer in his late 70s. She does state that she had a colonoscopy approximately 5 years ago that was normal. Procedure: Prior to the procedure, a history and physical exam was performed, and patient's medications and allergies were reviewed. The risks, benefits and alternatives of the sedation and procedure were discussed with the patient. All questions were answered and informed consent was obtained. The patient was brought to the procedure room. Patient identification and proposed procedure were verified by the physician and the nurse. The patient was placed in a left lateral decubitus position and the scope was passed under direct vision. Throughout the procedure, the patient's blood pressure, pulse, and oxygen saturations were monitored continuously. The colonoscopy was accomplished without difficulty. The patient tolerated the procedure well. Findings: On digital rectal examination there was normal rectal tone. There were no external hemorrhoids. The colonoscope was introduced through the anal canal to the rectum and advanced to the cecum. The ileocecal valve and appendiceal orifice were identified. The scope was advanced a short distance into the ileum which appeared grossly normal. The scope was then withdrawn into the colon. The cecum, ascending, transverse, descending, sigmoid and rectum were grossly normal. There were no mucosal abnormalities identified. Upon retroflexion within the rectum there were grade 1-2 internal hemorrhoids. The preparation was excellent throughout with [place] Preparation Score of 9. The cecal time was 10 minutes. Impression: 1. Normal colonoscopy with intubation of the terminal ileum Plan: The patient will not require screening/surveillance colonoscopy for 10 years. Those persons that constitute having a stronger family history of colorectal cancer are those with a first-degree relative (parent, sibling, or child) diagnosed with colon cancer when they were younger than 50, or if more than one first-degree relative is affected. It is in these persons, that we recommend surveillance colonoscopy every 5 years. Persons that have a second degree family member greater than 60 years of age at the time of their diagnosis are not deemed to be at greater risk because most colon cancers are sporadic (environmental and other factors) and are not hereditary. Only about 5 to 10 percent of colon cancer is hereditary.
[2025-03-22 11:40] VITALS: BP 130/72; PULSE 78; RESP 18; TEMP 36.2; O2SAT 100
[2025-03-22 11:50] VITALS: BP 131/68; PULSE 72; RESP 18; O2SAT 100
[2025-03-22 12:00] VITALS: BP 109/78; PULSE 72; RESP 18; O2SAT 100
[2025-03-22 12:10] VITALS: BP 116/68; PULSE 68; RESP 18; O2SAT 100
[2025-03-22 12:38] VITALS: BP 124/73; PULSE 67; RESP 18; TEMP 36.2; O2SAT 100
== END 2025-03-22 12:38 | disposition home or self-care (01) ==
PROVIDERS: PCP Family Medicine; Visit Provider Internal Medicine Gastroenterology
PROC: 0DJD8ZZ Inspection of Lower Intestinal Tract, Via Natural or Artificial Opening Endoscopic (ICD-10-PCS; CPT 45378; principal; 2025-03-22 11:30)
DX: Z12.11 Encounter for screening for malignant neoplasm of colon (principal); K64.1 Second degree hemorrhoids; K64.0 First degree hemorrhoids; I10 Essential (primary) hypertension; L40.50 Arthropathic psoriasis, unspecified; K21.9 Gastro-esophageal reflux disease without esophagitis; M79.7 Fibromyalgia; Z98.51 Tubal ligation status; Z90.49 Acquired absence of other specified parts of digestive tract; Z79.899 Other long term (current) drug therapy; Z79.85 Long-term (current) use of injectable non-insulin antidiabetic drugs; Z88.5 Allergy status to narcotic agent; Z80.0 Family history of malignant neoplasm of digestive organs; Z88.8 Allergy status to other drugs, medicaments and biological substances
CPT/HCPCS: 45378; J2003; J2405; J2704; J7120